=== PATIENT | male | born 1985 | race African-American/Black ===

== ENCOUNTER 2017-09-17 09:16 | Emergency (ER) | payer SELFPAY ==
[2017-09-17 09:17] VITALS: BP 119/74; PULSE 106; RESP 14; TEMP 36.9; O2SAT 99; BMI 25.7
--- NOTE | 2017-09-17 09:34 | ED.DCSUM_ITS ---
- ER Visit Summary Date of Service: 09/17/17 Chief Complaint: [Injury left leg] History of Present Illness: The patient is a 31 M [presents to the emergency department with injury to the left leg that occurred yesterday. Patient states that he was playing basketball when he accidentally took the knee to the anterior thigh. Patient initially did not think much of it and continued to play. Subsequently patient developed discomfort into his left calf as well last night. Patient having pain with ambulation. Patient states pain worse with standing from a seated position and climbing steps. 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 There is no ecchymosis or bruising. There is no hematoma noted. Neurovascular intact distally. Left calf-patient again has tenderness on palpation of the calf and pain with dorsiflexion of the foot. The Achilles tendon is intact and he has a normal Murphy's test. No ecchymosis or bruising noted over the calf and no hematoma noted. Neurovascularly intact.] Test Results: [None indicated] Emergency Department Course and Treatment: [Will be given crutches, Jerry wrap, and naproxen.] Treatment Plan: [Patient will be given work restrictions. Patient advised to follow-up with primary care physician in 5-7 days.] Disposition: [Discharged home in stable condition] Impression: [Contusion left thigh Calf strain] This note was generated with [facility] dictation software. It may contain incorrect words, spelling, and punctuation that were not noted in review of the chart prior to signing ED Disposition - Plan for ED Patient: Chief Complaint: Lower Extremity Injury Referrals: Vimal Nesbitt MD [Primary Care Provider] -
--- NOTE | 2017-09-17 09:35 | ED.DEP ---
ED Disposition - Plan for ED Patient: Chief Complaint: Lower Extremity Injury Instructions: ED Strain Muscle Ext, ED Contusion Lower Ext Prescriptions: Naproxen [Naprosyn] 500 mg PO BID PRN #20 tab Referrals: Vimal Nesbitt MD [Primary Care Provider] - 5-7 Days
== END 2017-09-17 10:12 | disposition home or self-care (01) ==
PROVIDERS: Emergency Provider Emergency Medicine; Family Provider Family Medicine; PCP Family Medicine
DX: S70.12XA Contusion of left thigh, initial encounter (principal); S86.112A Strain of other muscle(s) and tendon(s) of posterior muscle group at lower leg level, left leg, initial encounter; Z72.0 Tobacco use; X58.XXXA Exposure to other specified factors, initial encounter; Y93.67 Activity, basketball; Y92.89 Other specified places as the place of occurrence of the external cause; Y99.8 Other external cause status
CPT/HCPCS: 99283

== ENCOUNTER 2018-06-10 16:44 | Emergency (ER) | payer MEDICAID, SELFPAY ==
[2018-06-10 16:45] VITALS: BP 135/89; PULSE 73; RESP 17; TEMP 36.6; O2SAT 98; BMI 27.4
--- NOTE | 2018-06-10 17:03 | RAD_ITS ---
STUDY: X-RAY - RIGHT KNEE REASON FOR EXAM: Male, 32 years old. Right knee pain. TECHNIQUE: 4 view(s) of the knee. COMPARISON: 05/04/2015. FINDINGS: Normal visualized distal femur. Normal visualized proximal tibia and fibula. Normal proximal tibiofibular articulation. Normal medial femorotibial compartment. Normal lateral femorotibial compartment. Normal patellofemoral articulation. The soft tissue structures are unremarkable. RAD/Knee 4 or More Views IMPRESSION: Normal x-ray examination of the knee. Electronically Signed: Faye Beckwith MD at 17:29 EST Tel , Service support ,
--- NOTE | 2018-06-10 17:04 | ED.VISSUMM ---
- ER Visit Summary Date of Service: 06/10/18 Chief Complaint: Right knee pain History of Present Illness: The patient is a 32 M presenting with right knee pain. He states he has had intermittent right knee pain for the past couple of months. He does not recall a specific injury. He states that he played sports as a child and was told this was likely related to that. He denies fever. He was unable to get into his primary care physician. Denies other complaints. Physical Examination: Vitals are stable. Patient is afebrile. Alert no acute distress. HEENT exam is unremarkable. Neck is supple. Lungs are clear and equal bilaterally. Heart is regular rate and rhythm. Extremities right anterior knee tenderness with active full range of motion. No erythema or warmth. Neurovascularly intact distally Skin is warm and dry. No focal neurologic deficit. Remainder of exam is unremarkable. Emergency Department Course and Treatment: X-ray right knee is normal x-ray examination of the knee. He was given [place] x1 and prescription for Naprosyn. He declined crutches. He is advised to follow-up with PCP or orthopedics. Advised return to ED if worsening complaints. Disposition: Discharge home Impression: Chronic right knee pain This note was generated with [employer] dictation software. It may contain incorrect words, spelling, and punctuation that were not noted in review of the chart prior to signing ED Disposition - Plan for ED Patient: Instructions: ED Knee Pain [facility] Prescriptions: Naproxen [Naprosyn] 500 mg PO BID PRN #20 tablet Referrals: Candido Floyd MD [STAFF PHYSICIAN] - Vimal Nesbitt MD [Primary Care Provider] -
--- NOTE | 2018-06-10 17:39 | ED.DEP ---
ED Disposition - Plan for ED Patient: Instructions: ED Knee Pain [facility] Prescriptions: Naproxen [Naprosyn] 500 mg PO BID PRN #20 tablet Referrals: Vimal Nesbitt MD [Primary Care Provider] - Candido Floyd MD [STAFF PHYSICIAN] -
[2018-06-10] MEDS: HYDROcodone Bitartrate/Apap 5/325 Tablet PO (17:45)
== END 2018-06-10 17:47 | disposition home or self-care (01) ==
LOC: ED 17:20
PROVIDERS: Emergency Provider Emergency Medicine; Family Provider Family Medicine; PCP Family Medicine
DX: M25.561 Pain in right knee (principal); G89.29 Other chronic pain; Z72.0 Tobacco use
CPT/HCPCS: 73564; 99283

== ENCOUNTER 2019-07-06 14:25 | Emergency (ER) | payer SELFPAY ==
[2019-07-06 14:26] VITALS: BP 163/89; PULSE 82; RESP 15; TEMP 36.9; O2SAT 98; BMI 28.5
--- NOTE | 2019-07-06 15:19 | ED.VISSUMM ---
- ER Visit Summary Date of Service: 07/06/19 Chief Complaint: Right hand pain and swelling History of Present Illness: The patient is a 33 M who complains of right hand pain and swelling. Is been ongoing for 2 days. He has swelling on the palm side of his right hand near the thenar eminence. He describes the pain as throbbing. He has tingling in his arm as well. He has a history of a skin graft about 17 years ago. He had a wound at the middle part at the base of his hand which he states opened up. 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 No fevers. Denies any coldness or paresthesias to his fingers. Physical Examination: Vital signs reviewed. Right arm exam reveals a healing wound at the base of his hand on the palm side near this skin graft. There is no drainage or erythema. It is mildly warm to touch. He has a 2+ radial pulse. He has no significant swelling of the right arm. No tenderness of the forearm or elbow. Test Results: None performed Emergency Department Course and Treatment: At this point I will treat the patient with Keflex. He has great pulses. I do not feel that this is an arterial occlusion or DVT. He has no injuries I do not feel any x-rays are needed. I will treat him with Keflex. He will follow-up with his doctor Treatment Plan: [] Disposition: Discharge Impression: Right hand pain This note was generated with [employer] dictation software. It may contain incorrect words, spelling, and punctuation that were not noted in review of the chart prior to signing ED Disposition - Plan for ED Patient: Disposition: Home or Assisted Living Instructions: Cellulitis Prescriptions: Cephalexin [Keflex] 500 mg PO Q8 #21 cap Prescription Printed Referrals: Vimal Nesbitt MD [Primary Care Provider] -
== END 2019-07-06 15:30 | disposition home or self-care (01) ==
LOC: ED 15:27
PROVIDERS: Emergency Provider Emergency Medicine; PCP Family Medicine
DX: M79.641 Pain in right hand (principal)
CPT/HCPCS: 99282

== ENCOUNTER 2020-07-23 17:34 | Emergency (ER) | payer BC, SELFPAY ==
[2020-07-23 17:36] VITALS: BP 151/103; PULSE 95; RESP 14; TEMP 36.6; O2SAT 99; BMI 27.8
[2020-07-23 17:53] VITALS: RESP 16
[2020-07-23] MEDS: HYDROcodone Bitartrate/Apap 5/325 Tablet PO (18:00)
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
[2020-07-23 18:43] VITALS: PULSE 97; RESP 16; O2SAT 98
--- NOTE | 2020-07-23 18:44 | ED.RN ---
REVIEWED D/C INSTRUCTIONS, FOLLOW UP CARE, PRESCRIPTION, AND S/S THAT WOULD WARRANT A RETURN TO THE ED WITH PT. PT VERBALIZED AN UNDERSTANDING AND DENIES FURTHER QUESTIONS FOR THIS RN. PT SKIN WARM/DRY, RESP EVEN AND UNLABORED, PT A&O X 3, NO DISTRESS NOTED.
== END 2020-07-23 18:49 | disposition home or self-care (01) ==
LOC: ED 18:46
PROVIDERS: Emergency Provider Emergency Medicine; PCP Family Medicine
DX: S20.212A Contusion of left front wall of thorax, initial encounter (principal); F17.200 Nicotine dependence, unspecified, uncomplicated; V43.62XA Car passenger injured in collision with other type car in traffic accident, initial encounter; Y93.I9 Activity, other involving external motion; Y92.410 Unspecified street and highway as the place of occurrence of the external cause; Y99.8 Other external cause status
CPT/HCPCS: 71111; 99283

== ENCOUNTER 2020-08-14 16:53 | Emergency (ER) | payer BC, SELFPAY ==
[2020-08-14 16:54] VITALS: BP 146/80; PULSE 127; RESP 15; TEMP 36.6; O2SAT 99; BMI 29.4
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
== END 2020-08-14 17:30 | disposition home or self-care (01) ==
LOC: ED 17:22
PROVIDERS: Emergency Provider Student in an Organized Health Care Education/Training Program; PCP Family Medicine
DX: Z02.89 Encounter for other administrative examinations (principal); F17.200 Nicotine dependence, unspecified, uncomplicated
CPT/HCPCS: 99282

== ENCOUNTER → 2020-11-20 10:59 | Outpatient (CLI) | payer MEDICAID, SELFPAY ==
[2020-11-20 10:17] VITALS: BMI 29.4
[2020-11-20 12:06] LABS: Absolute Lymphocyte Count 2.04 X10^3/uL (0.83-4.51); Absolute Neutrophil Count 4.3 X10^3/uL (2.0-7.7); Basophil# 0.04 X10^3/uL; Basophil% 0.5 % (0-1); Eosinophil# 0.14 X10^3/uL; Eosinophils% 1.9 % (0-5); Hematocrit 46.5 % (40-54); Hemoglobin 14.7 g/dL (13.0-16.5); Lymphocyte # 2.04 X10^3/ul (0.83-4.51); Lymphocyte % 27.6 % (19-41); Mean Corp Hgb Conc 31.6 g/dL (32-36); Mean Corpuscular Hgb 27.9 pg (27.0-32.0); Mean Corpuscular Volume 88.2 fL (80-94); Mean Platelet Vol. 9.5 fl (6.2-12.0); Monocyte# 0.78 X10^3/uL; Monocyte% 10.6 % (0-10); NRBC Flagged by Analyzer 0 % (0-5); Neutrophil # 4.34 X10^3/uL (2.7-7.7); Neutrophil % 58.7 % (47-70); Platelet Count 345 K/mm3 (150-450); RBC Distribution Width CV 13.5 % (11.6-14.6); RBC Distribution Width SD 43.8 fl (35.1-43.9); Red Blood Count 5.27 M/mm3 (4.6-6.2); White Blood Count 7.4 K/mm3 (4.4-11.0)
[2020-11-20 12:38] LABS: ALB/GLOB Ratio 1.1 RATIO (0.9-2.4); AST(SGOT) 26 U/L (15-37); Alanine Aminotransfer ALT/SGPT 47 U/L (16-61); Alkaline Phosphatase 112 U/L (45-117); Anion Gap 3 (5-15); BUN 9 mg/dL (7-18); BUN/Creat Ratio 7.9 RATIO (10-20); Calcium,Total 8.8 mg/dL (8.5-10.1); Chloride 107 mmol/L (98-107); Creatinine, Serum 1.14 mg/dL (0.70-1.30); EST Glomerular Filtration Rate 77 mL/min (>60); Est Glom Filt Rate - Afr Amer 93 mL/min (>60); Globulin 3.8 g/dL (2.2-4.2); Glucose 82 mg/dL (74-106); Potassium 3.9 mmol/L (3.5-5.1); Protein, Total 7.8 g/dL (6.4-8.2); Sodium Level 138 mmol/L (136-145); T4 Free Direct 0.86 ng/dL (0.76-1.46)
== END ==
PROVIDERS: PCP Internal Medicine; Referring Provider Internal Medicine; Visit Provider Internal Medicine
DX: F31.9 Bipolar disorder, unspecified (principal)
CPT/HCPCS: 36415; 80053; 84439; 84443; 85025

== ENCOUNTER → 2020-12-18 11:39 | Outpatient (CLI) | payer MEDICAID, SELFPAY ==
[2020-12-18 11:05] VITALS: BMI 29.4
[2020-12-18 15:14] LABS: Absolute Lymphocyte Count 2.21 X10^3/uL (0.83-4.51); Absolute Neutrophil Count 3.5 X10^3/uL (2.0-7.7); Basophil# 0.05 X10^3/uL; Basophil% 0.8 % (0-1); Eosinophil# 0.15 X10^3/uL; Eosinophils% 2.3 % (0-5); Hematocrit 45.6 % (40-54); Hemoglobin 14.7 g/dL (13.0-16.5); Lymphocyte # 2.21 X10^3/ul (0.83-4.51); Lymphocyte % 34.2 % (19-41); Mean Corp Hgb Conc 32.2 g/dL (32-36); Mean Corpuscular Hgb 28.6 pg (27.0-32.0); Mean Corpuscular Volume 88.7 fL (80-94); Mean Platelet Vol. 9.8 fl (6.2-12.0); Monocyte# 0.56 X10^3/uL; Monocyte% 8.7 % (0-10); NRBC Flagged by Analyzer 0 % (0-5); Neutrophil # 3.47 X10^3/uL (2.7-7.7); Neutrophil % 53.5 % (47-70); Platelet Count 294 K/mm3 (150-450); RBC Distribution Width CV 13.8 % (11.6-14.6); RBC Distribution Width SD 44.7 fl (35.1-43.9); Red Blood Count 5.14 M/mm3 (4.6-6.2); White Blood Count 6.5 K/mm3 (4.4-11.0)
== END ==
PROVIDERS: PCP Internal Medicine; Referring Provider Internal Medicine; Visit Provider Internal Medicine
DX: F31.9 Bipolar disorder, unspecified (principal)
CPT/HCPCS: 36415; 85025

== ENCOUNTER 2021-02-19 06:36 | Emergency (ER) | payer MEDICAID, SELFPAY ==
[2021-02-19 06:37] VITALS: BP 144/71; PULSE 71; RESP 16; TEMP 36.6; O2SAT 100; BMI 29.2
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
== END 2021-02-19 07:15 | disposition home or self-care (01) ==
LOC: ED 07:14
PROVIDERS: Emergency Provider Emergency Medicine; PCP Family Medicine
DX: K05.20 Aggressive periodontitis, unspecified (principal); H60.91 Unspecified otitis externa, right ear; F31.9 Bipolar disorder, unspecified; F17.210 Nicotine dependence, cigarettes, uncomplicated; Z79.899 Other long term (current) drug therapy
CPT/HCPCS: 99282

== ENCOUNTER 2021-09-09 11:39 | Emergency (ER) | payer MEDICAID, SELFPAY ==
[2021-09-09 11:40] VITALS: BP 154/88; PULSE 71; RESP 18; TEMP 36.5; O2SAT 97; BMI 29.2
[2021-09-09] MEDS: Ibuprofen 600 MG Tablet PO (12:55)
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
== END 2021-09-09 13:39 | disposition home or self-care (01) ==
PROVIDERS: Emergency Provider Emergency Medicine; PCP Internal Medicine; Visit Provider Emergency Medicine
DX: M77.10 Lateral epicondylitis, unspecified elbow (principal); F31.9 Bipolar disorder, unspecified; R20.2 Paresthesia of skin; Z79.899 Other long term (current) drug therapy; F17.210 Nicotine dependence, cigarettes, uncomplicated
CPT/HCPCS: 73080; 99283

== ENCOUNTER → 2021-09-17 | Outpatient (CLI) | payer MEDICAID, SELFPAY ==
[2021-09-17 12:08] LABS: Absolute Lymphocyte Count 2.43 X10^3/uL (0.83-4.51); Absolute Neutrophil Count 4.5 X10^3/uL (2.0-7.7); Basophil# 0.04 X10^3/uL; Basophil% 0.5 % (0-1); Eosinophil# 0.09 X10^3/uL; Eosinophils% 1.2 % (0-5); Hematocrit 47.4 % (40-54); Hemoglobin 15.1 g/dL (13.0-16.5); Lymphocyte # 2.43 X10^3/ul (0.83-4.51); Lymphocyte % 31.7 % (19-41); Mean Corp Hgb Conc 31.9 g/dL (32-36); Mean Corpuscular Hgb 28.4 pg (27.0-32.0); Mean Corpuscular Volume 89.1 fL (80-94); Mean Platelet Vol. 9.9 fl (6.2-12.0); Monocyte% 7.8 % (0-10); NRBC Flagged by Analyzer 0 % (0-5); Neutrophil # 4.45 X10^3/uL (2.7-7.7); Neutrophil % 58.1 % (47-70); Platelet Count 295 K/mm3 (150-450); RBC Distribution Width CV 13.6 % (11.6-14.6); RBC Distribution Width SD 44.1 fl (35.1-43.9); Red Blood Count 5.32 M/mm3 (4.6-6.2); White Blood Count 7.7 K/mm3 (4.4-11.0)
[2021-09-17 12:32] LABS: ALB/GLOB Ratio 0.9 RATIO (0.9-2.4); AST(SGOT) 33 U/L (15-37); Alanine Aminotransfer ALT/SGPT 84 U/L (16-61); Albumin, Serum 3.9 g/dL (3.2-5.0); Alkaline Phosphatase 106 U/L (45-117); Anion Gap 9 (5-15); BUN 16 mg/dL (7-18); BUN/Creat Ratio 14.8 RATIO (10-20); Chloride 106 mmol/L (98-107); Creatinine, Serum 1.08 mg/dL (0.70-1.30); EST Glomerular Filtration Rate 81 mL/min (>60); Est Glom Filt Rate - Afr Amer 99 mL/min (>60); Globulin 4.4 g/dL (2.2-4.2); Glucose 84 mg/dL (74-106); Potassium 4.2 mmol/L (3.5-5.1); Protein, Total 8.3 g/dL (6.4-8.2); Sodium Level 141 mmol/L (136-145)
== END | disposition home or self-care (01) ==
LOC: BIMLAB 08:37
PROVIDERS: PCP Internal Medicine; Referring Provider Internal Medicine; Visit Provider Internal Medicine
DX: F31.9 Bipolar disorder, unspecified (principal)
CPT/HCPCS: 36415; 80053; 85025

== ENCOUNTER 2021-10-11 13:30 | Outpatient (RCR) | payer MEDICAID, SELFPAY ==
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
--- NOTE | 2022-01-28 13:11 | HP.PT.NRP ---
ECHO HYATT was seen in my office for initial evaluation on 09/19/21. The following Plan of Care was established for this patient: Initial Frequency: 2-3x /Week Initial Duration: 4-6 Weeks Patient/Client Instruction: Educate patient on: Condition, Plan of Care For the Purpose of:: To improve self management Therapeutic Exercise to Include: Strength training, Flexibilty training, Passive ROM, Active ROM For the Purpose of:: To decrease pain, To increase ROM, To improve muscle performance and motor function Manual Therapy Techniques to Include: Soft tissue mobilization For the Purpose of:: To decrease pain, To increase ROM, To improve muscle performance and motor function Cryotherapy (ice pack, ice massage): Yes Ultrasound (thermal/non thermal): Yes For the Purpose of:: To decrease pain This patient was last seen in our office . Pertinent comments regarding their Physical therapy will appear below: Pt was treated for R elbow pain for 6 PT visits through the date of 10/11/21. Pt has not returned through todays date and is discontinued at this time. At this point I will be discontinuing this patient from physical therapy. I would be happy to see this patient again in the future if found appropriate by the physician. Thank you! Cuco Deleon, PT, ATC Balance/Gait/Functional tests - Balance/Special Test Scores Quick DASH Score: 61.3625
== END 2021-10-11 19:00 | disposition home or self-care (01) ==
LOC: PT 13:30
PROVIDERS: PCP Internal Medicine; Referring Provider Internal Medicine; Visit Provider Internal Medicine
DX: M25.521 Pain in right elbow (principal)
CPT/HCPCS: 97035; 97110; 97140; 97161

== ENCOUNTER 2021-12-04 23:22 | Emergency (ER) | payer MEDICAID, SELFPAY ==
[2021-12-04 23:23] VITALS: BP 132/88; PULSE 87; RESP 16; TEMP 35.8; O2SAT 97; BMI 29.2
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
[2021-12-05 00:07] VITALS: BP 132/84; PULSE 79; RESP 15; O2SAT 98
== END 2021-12-05 00:07 | disposition home or self-care (01) ==
PROVIDERS: Emergency Provider Emergency Medicine; PCP Internal Medicine; Visit Provider Emergency Medicine
DX: B34.9 Viral infection, unspecified (principal); I10 Essential (primary) hypertension; Z87.891 Personal history of nicotine dependence; Z79.899 Other long term (current) drug therapy; Z20.822 Contact with and (suspected) exposure to COVID-19; Z86.16 Personal history of COVID-19
CPT/HCPCS: 87811; 99282

== ENCOUNTER 2021-12-16 22:58 | Emergency (ER) | payer MEDICAID, SELFPAY ==
[2021-12-16 22:58] VITALS: BP 175/102; PULSE 113; RESP 16; TEMP 37; O2SAT 98; BMI 29.2
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
[2021-12-16] MEDS: Diphth,Pertuss(Acell),Tet Vac 0.5 ML Vial IM (23:30)
[2021-12-16 23:31] VITALS: PULSE 74; RESP 15; O2SAT 98
== END 2021-12-16 23:33 | disposition home or self-care (01) ==
LOC: ED 23:13
PROVIDERS: Emergency Provider Student in an Organized Health Care Education/Training Program; PCP Internal Medicine; Visit Provider Student in an Organized Health Care Education/Training Program
DX: S61.012A Laceration without foreign body of left thumb without damage to nail, initial encounter (principal); I10 Essential (primary) hypertension; Z87.891 Personal history of nicotine dependence; W26.8XXA Contact with other sharp object(s), not elsewhere classified, initial encounter; Z23 Encounter for immunization
CPT/HCPCS: 90715; 99282

== ENCOUNTER 2021-12-30 09:52 | Emergency (ER) | payer MEDICAID, SELFPAY ==
[2021-12-30 09:53] VITALS: BP 132/92; PULSE 67; RESP 16; TEMP 36.2; O2SAT 99; BMI 28.3
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
[2021-12-30] MEDS: Dicyclomine 10 MG Capsule 20 MG PO (10:20)
[2021-12-30] MEDS: 0.9% Normal Saline 1,000 ML 1000 ML IV (10:32)
[2021-12-30 10:41] LABS: Absolute Lymphocyte Count 2.23 X10^3/uL (0.83-4.51); Absolute Neutrophil Count 2.9 X10^3/uL (2.0-7.7); Basophil# 0.03 X10^3/uL; Basophil% 0.5 % (0-1); Eosinophil# 0.13 X10^3/uL; Eosinophils% 2.3 % (0-5); Hematocrit 43.5 % (40-54); Hemoglobin 14.5 g/dL (13.0-16.5); Lymphocyte # 2.23 X10^3/ul (0.83-4.51); Lymphocyte % 39.1 % (19-41); Mean Corp Hgb Conc 33.3 g/dL (32-36); Mean Corpuscular Hgb 28.9 pg (27.0-32.0); Mean Corpuscular Volume 86.7 fL (80-94); Mean Platelet Vol. 9.1 fl (6.2-12.0); Monocyte# 0.41 X10^3/uL; Monocyte% 7.2 % (0-10); NRBC Flagged by Analyzer 0 % (0-5); Neutrophil # 2.89 X10^3/uL (2.7-7.7); Neutrophil % 50.7 % (47-70); Platelet Count 272 K/mm3 (150-450); RBC Distribution Width CV 13.1 % (11.6-14.6); RBC Distribution Width SD 41.1 fl (35.1-43.9); Red Blood Count 5.02 M/mm3 (4.6-6.2); White Blood Count 5.7 K/mm3 (4.4-11.0)
[2021-12-30 11:00] LABS: AST(SGOT) 40 U/L (15-37); Alanine Aminotransfer ALT/SGPT 53 U/L (16-61); Albumin, Serum 3.5 g/dL (3.2-5.0); Alkaline Phosphatase 113 U/L (45-117); Anion Gap 4 (5-15); BUN 10 mg/dL (7-18); BUN/Creat Ratio 11.2 RATIO (10-20); Calcium,Total 8.5 mg/dL (8.5-10.1); Chloride 110 mmol/L (98-107); Creatinine, Serum 0.89 mg/dL (0.70-1.30); EST Glomerular Filtration Rate 102 mL/min (>60); Est Glom Filt Rate - Afr Amer 123 mL/min (>60); Estimated Creatinine Clearance 94.23 ml/min; Globulin 4.3 g/dL (2.2-4.2); Glucose 87 mg/dL (74-106); Potassium 4.3 mmol/L (3.5-5.1); Protein, Total 7.8 g/dL (6.4-8.2); Sodium Level 141 mmol/L (136-145)
[2021-12-30 11:17] LABS: Bacteria 0 SEEN /hpf (None Seen); Mucous, Urine 0 SEEN /hpf (<or=2+); Red Blood Cells-Urine 0 SEEN /hpf (0-5); Squamous Epithelial Cells - UA 0 SEEN /hpf (0-5); White Blood Cells 0 SEEN /hpf (0-5)
[2021-12-30 11:21] LABS: Color, Urine Yellow (Yellow); Glucose, Dipstick Normal (Normal); Ketone-Dipstick Negative (Negative); Leukocyte Esterase-Dipstick Negative /ul (Negative); Nitrite-Dipstick Negative (Negative); Occult Blood-Urine Negative /ul (Negative); Protein-Dipstick Negative (Negative); Specific Gravity, Urine 1.015 (1.002-1.030); Urine Bilirubin Dipstick Negative (Negative); Urine Clarity Clear (Clear); Urine Urobilinogen Normal (Normal)
== END 2021-12-30 12:40 | disposition home or self-care (01) ==
PROVIDERS: Emergency Provider Emergency Medicine; PCP Internal Medicine; Visit Provider Emergency Medicine
DX: A08.4 Viral intestinal infection, unspecified (principal); R51.9 Headache, unspecified; I10 Essential (primary) hypertension; R19.7 Diarrhea, unspecified; Z20.822 Contact with and (suspected) exposure to COVID-19; Z87.891 Personal history of nicotine dependence
CPT/HCPCS: 80048; 80076; 81001; 85025; 87811; 96360; 99283; J7030

== ENCOUNTER 2022-06-13 16:11 | Emergency (ER) | payer MEDICAID, SELFPAY ==
[2022-06-13 16:11] VITALS: BP 144/86; PULSE 79; RESP 18; TEMP 36.1; O2SAT 100; BMI 27.8
--- NOTE | 2022-06-13 16:25 | RAD_ITS ---
EXAM: XR LEFT FOOT COMPLETE, 3 OR MORE VIEWS CLINICAL INDICATION: INJURY TECHNIQUE: Frontal, lateral and oblique views of the left foot. This report was created using [employer] report generation technology. COMPARISON: None. FINDINGS: BONES/JOINTS: Unremarkable. No acute fracture. No subluxation. Normal alignment. Preservation of the joint space. No sclerotic or destructive changes observed. SOFT TISSUES: Unremarkable. No soft tissue swelling or gas. No radiopaque foreign body. RAD/Foot min 3 Views IMPRESSION: Negative left foot x-rays. Electronically Signed: Jethro Morales MD at 16:51 EST ,
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
== END 2022-06-13 18:32 | disposition home or self-care (01) ==
LOC: ED 18:23
PROVIDERS: Emergency Provider Emergency Medicine; PCP Internal Medicine; Visit Provider Emergency Medicine
DX: S90.32XA Contusion of left foot, initial encounter (principal); M20.10 Hallux valgus (acquired), unspecified foot; M19.90 Unspecified osteoarthritis, unspecified site; I10 Essential (primary) hypertension; Z87.891 Personal history of nicotine dependence; W20.8XXA Other cause of strike by thrown, projected or falling object, initial encounter
CPT/HCPCS: 73630; 99283

== ENCOUNTER 2023-01-28 13:56 | Emergency (ER) | payer SELFPAY ==
[2023-01-28 13:56] VITALS: BP 123/79; PULSE 89; RESP 18; TEMP 36.3; O2SAT 98
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
--- NOTE | 2023-01-28 14:15 | RAD_ITS ---
STUDY: X-RAY - RIGHT FOOT CLINICAL: Male, 37 years old. Pain following injury. TECHNIQUE: 3 view(s) of the foot. COMPARISON: None. FINDINGS: Normal talus, calcaneus, and tarsal bones. Normal visualized subtalar, talonavicular, calcaneocuboid, tarsal and tarsometatarsal articulations. Normal metatarsi. Normal metatarsophalangeal joint of the great toe. Normal tibial and fibular sesamoid bones. Normal interphalangeal joint of the great toe. Normal phalanges of the great toe. Normal second through fifth metatarsophalangeal joints. Normal interphalangeal joints and phalanges of the lesser toes. The soft tissue structures are unremarkable. RAD/Foot min 3 Views IMPRESSION: Normal x-ray examination of the foot. Electronically Signed: Yomi Gusman MD at 14:29 EDT ,
[2023-01-28 14:32] VITALS: BMI 38.6
== END 2023-01-28 14:41 | disposition home or self-care (01) ==
PROVIDERS: Emergency Provider Emergency Medicine; PCP Internal Medicine; Visit Provider Emergency Medicine
DX: S90.31XA Contusion of right foot, initial encounter (principal); S50.811A Abrasion of right forearm, initial encounter; Z87.891 Personal history of nicotine dependence; I10 Essential (primary) hypertension; F32.A Depression, unspecified; W20.8XXA Other cause of strike by thrown, projected or falling object, initial encounter
CPT/HCPCS: 73630; 99282

== ENCOUNTER 2023-08-20 13:05 | Emergency (ER) | payer SELFPAY ==
[2023-08-20 13:05] VITALS: BP 164/98; BP 172/94; PULSE 102; PULSE 105; RESP 18; TEMP 37.2; O2SAT 98; BMI 28.0
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
[2023-08-20] MEDS: Amox/Clavulanate 875 MG Tablet PO (13:50)
[2023-08-20 13:52] VITALS: BP 131/77; PULSE 84; RESP 18; TEMP 36.8; O2SAT 99
== END 2023-08-20 13:53 | disposition home or self-care (01) ==
LOC: ED 13:42
PROVIDERS: Emergency Provider Emergency Medicine; PCP Internal Medicine; Visit Provider Emergency Medicine
DX: J32.9 Chronic sinusitis, unspecified (principal); F31.9 Bipolar disorder, unspecified; H92.02 Otalgia, left ear; I10 Essential (primary) hypertension; Z11.52 Encounter for screening for COVID-19; Z79.899 Other long term (current) drug therapy; Z87.891 Personal history of nicotine dependence
CPT/HCPCS: 99282

== ENCOUNTER 2023-10-18 18:07 | Emergency (ER) | payer SELFPAY ==
[2023-10-18 18:08] VITALS: BP 136/93; PULSE 87; RESP 16; TEMP 36.7; O2SAT 98; BMI 28.3
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
[2023-10-18] MEDS: AMOXICILLIN 500 MG CAPSULE PO (18:55)
[2023-10-18 18:56] VITALS: BP 141/67; PULSE 81; RESP 16; TEMP 36.7; O2SAT 99
== END 2023-10-18 19:18 | disposition home or self-care (01) ==
LOC: ED 19:17
PROVIDERS: Emergency Provider Emergency Medicine; PCP Internal Medicine; Visit Provider Emergency Medicine
DX: J06.9 Acute upper respiratory infection, unspecified (principal); K08.89 Other specified disorders of teeth and supporting structures; Z87.891 Personal history of nicotine dependence; I10 Essential (primary) hypertension
CPT/HCPCS: 99282

== ENCOUNTER → 2023-11-23 | Outpatient (CLI) | payer MEDICAID, SELFPAY ==
[2023-11-23 15:26] LABS: Absolute Lymphocyte Count 1.67 X10^3/uL (0.83-4.51); Absolute Neutrophil Count 2.7 X10^3/uL (2.0-7.7); Basophil# 0.02 X10^3/uL; Basophil% 0.4 % (0-1); Eosinophil# 0.11 X10^3/uL; Eosinophils% 2.3 % (0-5); Hematocrit 46.3 % (40-54); Lymphocyte # 1.67 X10^3/ul (0.83-4.51); Lymphocyte % 34.2 % (19-41); Mean Corp Hgb Conc 32.4 g/dL (32-36); Mean Corpuscular Hgb 28.4 pg (27.0-32.0); Mean Corpuscular Volume 87.7 fL (80-94); Mean Platelet Vol. 9.8 fl (6.2-12.0); Monocyte# 0.36 X10^3/uL; Monocyte% 7.4 % (0-10); NRBC Flagged by Analyzer 0 % (0-5); Neutrophil # 2.71 X10^3/uL (2.7-7.7); Neutrophil % 55.5 % (47-70); Platelet Count 314 K/mm3 (150-450); RBC Distribution Width CV 13.8 % (11.6-14.6); RBC Distribution Width SD 43.9 fl (35.1-43.9); Red Blood Count 5.28 M/mm3 (4.6-6.2); White Blood Count 4.9 K/mm3 (4.4-11.0)
[2023-11-23 16:30] LABS: ALB/GLOB Ratio 0.9 RATIO (0.9-2.4); AST(SGOT) 22 U/L (15-37); Alanine Aminotransfer ALT/SGPT 54 U/L (16-61); Albumin, Serum 3.8 g/dL (3.2-5.0); Alkaline Phosphatase 117 U/L (45-117); Anion Gap 5 (5-15); BUN 12 mg/dL (7-18); Calcium,Total 9.2 mg/dL (8.5-10.1); Chloride 107 mmol/L (98-107); Cholesterol 199 mg/dL (200); Creatinine, Serum 1.09 mg/dL (0.70-1.30); EST Glomerular Filtration Rate 80 mL/min (>60); Est Glom Filt Rate - Afr Amer 96 mL/min (>60); Globulin 4.3 g/dL (2.2-4.2); Glucose 88 mg/dL (74-106); High Density Lipoprotein 46 mg/dL; Potassium 4.2 mmol/L (3.5-5.1); Protein, Total 8.1 g/dL (6.4-8.2); Sodium Level 139 mmol/L (136-145); Triglycerides 91 mg/dL; Very Low Density Lipoprotein 18 mg/dL (5-40)
== END | disposition home or self-care (01) ==
LOC: BIMLAB 11:51
PROVIDERS: PCP Internal Medicine; Referring Provider Internal Medicine; Visit Provider Internal Medicine
DX: I10 Essential (primary) hypertension (principal)
CPT/HCPCS: 36415; 80053; 80061; 85025

== ENCOUNTER 2023-12-15 01:26 | Emergency (ER) | payer MEDICAID, SELFPAY ==
[2023-12-15 01:27] VITALS: BP 138/97; PULSE 80; RESP 16; TEMP 36.6; O2SAT 97; BMI 29.1
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
[2023-12-15 02:35] LABS: Absolute Neutrophil Count 4.1 X10^3/uL (2.0-7.7); Basophil# 0.07 X10^3/uL; Basophil% 0.9 % (0-1); Eosinophil# 0.29 X10^3/uL; Eosinophils% 3.6 % (0-5); Hematocrit 43.3 % (40-54); Lymphocyte % 35.8 % (19-41); Mean Corp Hgb Conc 32.3 g/dL (32-36); Mean Corpuscular Volume 86.6 fL (80-94); Mean Platelet Vol. 9.2 fl (6.2-12.0); Monocyte# 0.72 X10^3/uL; Monocyte% 8.9 % (0-10); NRBC Flagged by Analyzer 0 % (0-5); Neutrophil # 4.09 X10^3/uL (2.7-7.7); Neutrophil % 50.4 % (47-70); Platelet Count 324 K/mm3 (150-450); RBC Distribution Width CV 13.8 % (11.6-14.6); RBC Distribution Width SD 43.8 fl (35.1-43.9); White Blood Count 8.1 K/mm3 (4.4-11.0)
[2023-12-15 03:13] LABS: Anion Gap 5 (5-15); BUN 17 mg/dL (7-18); BUN/Creat Ratio 14.9 RATIO (10-20); CPK Total, Creatine Kinase 240 U/L (39-308); Calcium,Total 8.8 mg/dL (8.5-10.1); Chloride 108 mmol/L (98-107); Creatinine, Serum 1.14 mg/dL (0.70-1.30); EST Glomerular Filtration Rate 76 mL/min (>60); Est Glom Filt Rate - Afr Amer 91 mL/min (>60); Estimated Creatinine Clearance 80.85 ml/min; Glucose 96 mg/dL (74-106); Potassium 3.7 mmol/L (3.5-5.1); Sodium Level 140 mmol/L (136-145)
[2023-12-15 03:24] VITALS: BP 138/81; PULSE 79; RESP 18; TEMP 36.7; O2SAT 100
== END 2023-12-15 03:26 | disposition home or self-care (01) ==
PROVIDERS: Emergency Provider Emergency Medicine; PCP Internal Medicine; Visit Provider Emergency Medicine
DX: M62.838 Other muscle spasm (principal); X58.XXXA Exposure to other specified factors, initial encounter; I10 Essential (primary) hypertension; Z79.899 Other long term (current) drug therapy; Z87.891 Personal history of nicotine dependence
CPT/HCPCS: 80048; 82550; 85025; 99282; A4216

== ENCOUNTER → 2024-03-16 | Outpatient (CLI) | payer MEDICAID, SELFPAY | END | disposition home or self-care (01) | LOC: PSN 09:56 | PROVIDERS: PCP Internal Medicine; Referring Provider Orthopaedic Surgery Sports Medicine; Visit Provider Orthopaedic Surgery Sports Medicine | DX: M77.01 Medial epicondylitis, right elbow (principal) | CPT/HCPCS: 95886; 95910 ==

== ENCOUNTER 2024-04-05 08:30 | Outpatient (RCR) | payer MEDICAID, SELFPAY ==
--- NOTE | 2024-02-18 15:26 | HP.OTEVAL_ITS ---
Patient's Visit Information Visit Information Visit Information: ECHO HYATT is a 38 year old M, referred to Occupational Therapy by Dr. Ricardo Moran MD, with a diagnosis of medial epicondylitis. Date of Evaluation: 02/18/24 Occupational Therapist: Ifeoma Fletcher Subjective Subjective: This 38 year old male referred to OT services with dx of medial epicondylitis. Pt reports having these issue since accident in 2002 requiring surgical intervention and skin grafting. pt did have therapy in 2021 for medial epicondylitis and reports no improvement in symptoms pt has also done prednisone packs as well as injection in Mar and reports no improvement from this. 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 pt is R hand dominant. Doctor did order nerve conduction study schedule for first week of Mar. Pt has a hard time playing with daughter, working and completing IAD[employer] tasks indicating need for OT eval at this time. 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: R 30# stress position R 20# L 80# stress position 90# Lateral Pinch: R 3# R 10# Tripod Pinch: R 3# L 8# Edema Elbow: R and L 17.5 Sensation Sensation Comments: does report numbness and tingling R elbow on occasion not constant -- get nerve conduction study beginning of Mar 2024 Quick DASH-Disab of Arm,Shoulder& Hand Quick DASH Score: 65.9075 Goals Goal:ROM equal to unaffected hand: Yes Comment: in stress test position Goal:Escort Service Attendant/Pinch strength at least 75% of unaffected hand: Yes Comment: in stress test position Goal:No pain with affected hand use: Yes Goal:Full use of affected hand in daily activities including work: Yes Other Goal: pt will improve quick dash score by 10 points or more (65.9) in o rder to improve functional use of RUE pt will demonstrate 100% accuracy in cross friction massage to R medial epi region by third visit pt will demonstrate 100% accuracy in proper joint protection and positioning during the completion of daily functional tasks to decrease pain in RUE Rehabilitation General Assessment: This 38 year old male presents with dx of medial epicondylitis which per his report he has been dealing with since 2002. Pt is limited in ROM within stress test position of arm extended forearm supinated and wrist extended. pt also demonstrates decreased strength and increased pain within this position. pt has periodic numbness and tingling of R elbow not constant. pt is limited in his ability to perform daily tasks, work related duties as well as playing sport with child. pt requiring OT services 1-2x a week for 4-6 weeks. Rehabilitation Potential: Good Anticipated Interventions Anticipated Interventions: A/AAROM/PROM, Strengthening, Edema Control, Triggerpoint Release, Modalities, Joint Protection/Energy Conservation, Education re Diagnosis and Home Program Visit Plan Frequency: 1-2x /Week Duration: 4-6 Weeks General Plan: cross friction massage modalities stretching guidelines TEXT: Thank you for the opportunity to evaluate your patient. For Medicare and Medicare HMO plans, please review the plan of care and approve it. It will need to be FAXED BACK to us at [phone] for Medicare purposes. Please let me know if there are questions or concerns regarding this plan of care. Physician Signature: Date:
--- NOTE | 2024-03-29 11:16 | HP.OTREVAL ---
Re-Evaluation Intro: Dr. Ricardo Moran MD, It has been my pleasure to treat ECHO HYATT over the last 10 visits for medial epicondylitis. Please see the progress note below for an update on the occupational therapy plan of care! Subjective Subjective: arrives cancelled last appointment due to swelling and pain. 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 pt cancelled last appointment due to swelling and pain. pt frustrated because will do better some days then back to being swollen and painful pt has done US followed by softy tissue mobility stretching and progression to gentle eccentric exercise --- ability to perform exercise depends on pt pain and swelling. Plan Plan Frequency: 1-2x /Week Duration: 4-6 Weeks Goals Goals Patient Goals: Regain Strength, Decrease Pain, Return to Work, Decrease Swelling/Stiffness, Use Hand/Wrist/Arm Normally Again, Decrease Tingling/Numbness, Increase ROM, Resume Former Household Responsibilities (Cooking,Cleaning,Yard, etc.) and Resume Hobbies Goal:ROM equal to unaffected hand: Yes Goal:Medical Customer Service Representative/Pinch strength at least 75% of unaffected hand: Yes Goal:No pain with affected hand use: Yes Goal:Full use of affected hand in daily activities including work: Yes Other Goal: pt will improve quick dash score by 10 points or more (65.9) in order to improve functional use of RUE pt will demonstrate 100% accuracy in cross friction massage to R medial epi region by third visit GOAL MET pt will demonstrate 100% accuracy in proper joint protection and positioning during the completion of daily functional tasks to decrease pain in RUE GOAL MET Anticipated Interventions Anticipated Interventions Anticipated Interventions: A/AAROM/PROM, Strengthening, Edema Control, Triggerpoint Release, Modalities, Joint Protection/Energy Conservation, Education re Diagnosis and Home Program Re-Evaluation Ending Re-evaluation ending: Please do not hesitate to contact me at [phone] by phone or if you have questions or concerns regarding this new plan of care! Sincerely, Ifeoma Fletcher
--- NOTE | 2024-04-05 11:17 | HP.OTDCSUM_ITS ---
Discharge Summary D/C Summary: It has been my pleasure to treat ECHO HYATT under orders from Dr. Ricardo Moran MD, for the diagnosis of medial epicondylitis for a total of 12 visit(s). Please see the following information for a summary of their discharge status. 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 in stress position 15# LUE corporate job titles strength in stress position 70# Goals Patient Goals: Regain Strength, Decrease Pain, Return to Work, Decrease Swelling/Stiffness, Use Hand/Wrist/Arm Normally Again, Decrease Tingling /Numbness, Increase ROM, Resume Former Household Responsibilities (Cooking,Cleaning,Yard, etc.) and Resume Hobbies Goal:ROM equal to unaffected hand: Yes Goal Progress: not met Goal:Protective Signal Operator/Pinch strength at least 75% of unaffected hand: Yes Goal Progress: not met Goal:No pain with affected hand use: Yes Goal Progress: not met Goal:Full use of affected hand in daily activities including work: Yes Goal Progress: not met Other Goal: pt will improve quick dash score by 10 points or more (65.9) in order to improve functional use of RUE now 45.45 GOAL MET pt will demonstrate 100% accuracy in cross friction massage to R medial epi region by third visit GOAL MET pt will demonstrate 100% accuracy in proper joint protection and positioning during the completion of daily functional tasks to decrease pain in RUE GOAL MET D/C Information Discharge Comments: This 38 year old male seen for OT services due to R elbow pain medial epicondylitis. Pt seen for pain management, ROM and progression into strengthening. Pt demonstrates inconsistent pain throughout POC in R UE. pt is able to tolerate and complete stretches however once attempts made to slowly incorporate strengthening pt with increased pain and feeling of being swollen. Pt seen for 12 visits at this time discharge from OT with recommendation to follow up with Dr due to inconsistency in progress due to pain of RUE. d/c sentence: If there are questions or concerns regarding this patient's occupational therapy, please fell free to call me at [phone]. Thank you for the referral of this patient. Sincerely, Ifeoma Fletcher
--- NOTE | 2024-04-05 11:18 | HP.OT.NRP ---
Patient Information Patient Information: ECHO HYATT was seen in my office for initial evaluation on 02/18/24. The following Plan of Care was established for this patient: POC Established Initial Frequency: 1-2x /Week Initial Duration: 4-6 Weeks Anticipated Interventions Anticipated Interventions: A/AAROM/PROM, Strengthening, Edema Control, Triggerpoint Release, Modalities, Joint Protection/Energy Conservation, Education re Diagnosis and Home Program Last Seen Last Seen: This patient was last seen in our office 04/05/24. Pertinent comments regarding their Occupational therapy will appear below: This 38 year old male seen for OT services for R elbow pain medial epicondylitis. pt seen in POC for decreased pain improved ROM and progression into strengthening return to functional use. Able to progress with US and stretches however inconsistency in pain when attempts made to progress to gentle eccentric exercises. pt is discharge at this time with recommendation to return to Dr office for follow up due to inconsistencies and decreased ability to progress in POC due to pain. At this point I will be discontinuing this patient from occupational therapy. I would be happy to see this patient again in the future if found appropriate by the physician. Thank you! Ifeoma Fletcher
== END 2024-04-05 19:00 | disposition home or self-care (01) ==
LOC: OT 08:30
PROVIDERS: PCP Internal Medicine; Visit Provider Orthopaedic Surgery Sports Medicine
DX: M77.01 Medial epicondylitis, right elbow (principal)
CPT/HCPCS: 97035; 97140; 97165; 97530

== ENCOUNTER → 2024-05-24 | Outpatient (CLI) | payer MEDICAID, SELFPAY ==
--- NOTE | 2024-05-24 06:39 | MRI_ITS ---
STUDY: MRI RIGHT ELBOW REASON FOR EXAM: Male, 38 years old. Pain medial side elbow. TECHNIQUE: Standardized fat and water weighted pulse sequences were obtained in all 3 orthogonal planes. COMPARISON: Right elbow radiographs dated 12/22/2023. FINDINGS: Normal radio-capitellum articulation. Normal radial collateral ligamentous complex. Normal common extensor tendon. Normal ulnotrochlear articulation. Normal ulnar collateral ligamentous complex. Normal common flexor tendon. The cubital tunnel is normal, with a normal ulnar nerve. Normal biceps tendon and distal insertion. Normal lacertus fibrosis. Normal brachialis musculotendinous insertion. Normal triceps tendon and teno-osseous insertion. Normal olecranon process. The visualized distal humerus, proximal radius, and ulna are normal. There is mild edema in the proximal origin of the flexor digitorum superficialis muscle (coronal STIR series 6 images 17-18; axial T2 series 4 image 12). The remainder of the visualized muscles of the distal arm and proximal forearm are normal. The soft tissue structures are otherwise unremarkable. MRI/Upper Ext Joint Only(Routine) IMPRESSION: Mild edema in the proximal origin of the flexor digitorum superficialis muscle. No acute osseous, ligamentous or tendinous injury. Electronically Signed: Vamshi Grove MD at 8:16 EST ,
== END | disposition home or self-care (01) ==
LOC: MRI 06:27
PROVIDERS: PCP Internal Medicine; Referring Provider Orthopaedic Surgery Sports Medicine; Visit Provider Orthopaedic Surgery Sports Medicine
DX: M77.01 Medial epicondylitis, right elbow (principal)

== ENCOUNTER 2024-07-22 05:58 | Day surgery (SDC) | payer MEDICAID, SELFPAY ==
[2024-07-22] VITALS (10 sets, daily range): BP systolic 115–138; BP diastolic 70–103; PULSE 73–92; RESP 14–16; TEMP 36.4–36.8; O2SAT 93–100; BMI 29.2
[2024-07-22] MEDS: 0.9% Normal Saline (1000mL) 1,000 ML 15 ML IV (06:15)
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
[2024-07-22] MEDS: Cefazolin 2 GM in Syringe IV (07:30)
[2024-07-22] MEDS: Bupivacaine 0.25% 30 ML Vial (08:00)
--- NOTE | 2024-07-22 08:11 | OP.PCM_ITS ---
Problems Associated Problem List Diagnoses (1) Medial epicondylitis, right elbow: Procedures Musculoskeletal 20xxx-29xxx: Other Procedure See Report Operative Report (Standard) Operative Information Date of Procedure: 07/22/24 Pre-Operative Diagnosis: Right elbow medial epicondylitis Post-Operative Diagnosis: Same Surgery/Procedure Performed: Right elbow, neck flexor origin debridement and repair doll wig maker: Yes Gastroenterologist: caryn Tasks completed by early childhood teacher assistant: Retracting Additional assistant plant control operator?: No Type of Anesthesia: General and Local RN Documented Start/Stop Times: Operation Date: 07/22/24 07:30 Case Time Into Pre-Op 07/22/24 06:10 Out of Pre-Op 07/22/24 07:26 Anesthesia Start 07/22/24 07:30 Into Room 07/22/24 07:30 Procedure Start 07/22/24 07:53 Procedure End 07/22/24 08:08 Procedure Start Time: 07:53 Procedure Stop Time: 08:08 Select all DRAINS/GRAFTS/IMPLANTS that apply: Implanted device Implanted device details: arthrex 1.8mm all suture fiber selma anchor Estimated Blood Loss: 10 Specimen collected: No Description of surgery: Patient brought to the operating room theater. Placed supine on the table. General anesthesia induced. 2 g IV Ancef administered prior to the start of the case. Bed turned 90 degrees. All bony prominences padded. SCDs on the legs. Tourniquet to the right upper extremity appropriately padded. Upper extremity prepped and draped in the usual sterile fashion allowing over 3 minutes drying time prior to draping. Preoperative timeout performed to confirm the site patient and the surgery. Began by elevating the limb inflating the tourniquet to 250 mmHg. Made a small incision over the proximal medial epicondyle. Carried the dissection down through skin and subcutaneous tissue achieved meticulous hemostasis. Identified the common flexor origin. Sharply released this off the medial epicondyles. Gently debrided any diseased appearing tissue. Used a rongeur to freshen up and create a bleeding bed of healing at the medial epicondyle. Made a T-shaped s plit in the common flexor origin. I then inserted a Arthrex 1.8 mm fiber tack all suture anchor at the medial epicondyle. Set the anchor. Used the repair stitch and running fashion to repair the released and split tissue back down to the origin. I then converted the suture through the mechanism and cinched this tight. Suture cut short. Repair was stable solid taken through range of motion. Tourniquet let down thoroughly irrigated using normal saline. Meticulous hemostasis followed by closure of the subcutaneous tissue with 2-0 Vicryl suture and skin with 3-0 Monocryl. 10 cc of quarter percent bupivacaine was instilled in around the soft tissues. Wound cleaned with wet and dry dressing followed by application of Steri-Strips Adaptic 4 x 4 gauze and Jerry bandage with a sling for the upper extremity. Patient woken up from the general anesthetic transferred off the operating table taken to postanesthetic care unit in stable condition. All sponge needle instrument counts were correct no complications plan to the patient discharged home according to day surgery criteria follow-up in the office within 2 weeks. CPT 60592? Surgical Findings: as above Complications Complications: No Admit VTE Documentation VTE Present on Admission: No VTE Mechan Device Prophylaxis: SCD's VTE Pharm Prophylaxis ordered?: No Reason prophylaxis not ordered: Treatment Not Indicated
--- NOTE | 2024-07-22 08:17 | EX.PCM.DISCH ---
Discharge Instructions Diet Discharge Diet: No restrictions Activity Ice area for (Minutes): 10 Lifting Restrictions: no lifting, rest the elbow in the sling, no repetitive wrist or elbow ROM Additional Activity Instructions:: ok for finger ROM Dressing / Incision Call your doctor if your incision/area has: Continuous Slow Oozing, Sudden Increased Bleeding, Increased Pain/ Swelling, Increased Redness, Foul Smelling Discharge and Swelling at the incision site Call your doctor if you observe: Fever of 101 or Higher, Coldness, Increased Pain and Numbness or Tingling Change Dressing in: leave in place till F/U Cleanse incision/area with: Do not get Incision Wet Follow Up Care Please Follow Up With: Ricardo Moran MD When: within 2 weeks Test Results: Test results from this visit will be discussed in further detail at your follow-up appointment, if applicable. Discharge Plan Admission Attending Provider: Ricardo Moran Primary Care Provider: Francy Boss Instructions Print Language: Tamazight Discharge Orders/Prescriptions Prescriptions: New oxycodone-acetaminophen [Endocet] 5-325 mg tablet 1 tab PO Q6H MDD 4 PRN (Reason: pain) 3 Days Qty: 14 0RF No Action amlodipine 5 mg tablet 5 mg PO DAILY Qty: 90 3RF (DME) CARMENCITA Elbow Brace Misc See Rx Instructions .Route Qty: 1 0RF Rx Instructions: As directed quetiapine 50 mg tablet 50 mg PO DAILY Referrals / Follow Up: Francy Boss MD [Primary Care Provider] - Ricardo Moran MD [Med Staff - Active Staff] - Disposition Disposition (needs filled in before D/C Order can be placed): Home, Self Care
--- NOTE | 2024-07-22 08:25 | PCM.POST.ANE ---
Anesthesia: Postop Eval I Current Vital Signs Temperature: 97.6 F Pulse Rate: 86 Blood Pressure: 119/74 Respiratory Rate: 16 Pulse Ox: 93 Assessment Airway patent: Yes Spontaneous unlabored respirations: Yes nausea: No Vomiting: No Anesthesia Complication: No Fluid Hydration Crystalloid volume administer (ml): 700 Total IV fluid infused: 700 Progress Note Anesthesia document: Postop Eval 1 completed: Yes
--- NOTE | 2024-07-22 09:30 | POSTOPAN2_ITS ---
Anesthesia Postop Eval I Sum Postop Eval Completion status Anesthesia document: Postop Eval 1 completed: Yes Anesthesia Postop Eval I Summary Anesthesia Postop Eval I Summary: Anesthesia Postop Eval I: Assessment Summary Airway patent Yes 07/22/24 08:25 CARPET FLOOR LAYER APPRENTICE.TNES Spontaneous unlabored Yes 07/22/24 08:25 CARPET FLOOR LAYER APPRENTICE.TNES respirations Mental status nausea No 07/22/24 08:25 CARPET FLOOR LAYER APPRENTICE.TNES Vomiting No 07/22/24 08:25 CARPET FLOOR LAYER APPRENTICE.TNES Anesthesia Postop Eval I: Fluid Summary Crystalloid volume administer 700 07/22/24 08:25 CARPET FLOOR LAYER APPRENTICE.TNES (ml) Colloids volume administered ( ml) Blood Product volume administered (ml) Total IV fluid infused 700 07/22/24 08:25 CARPET FLOOR LAYER APPRENTICE.TNES Anesthesia Postop Eval I: Summary Notes Anesthesia Complication No 07/22/24 08:25 CARPET FLOOR LAYER APPRENTICE.TNES Anesthesia Complication Comment: Post-operative progress note Anesthesia: Postop Eval II Evaluation Mental status: Awake Pain Level: 4 nausea: No Vomiting: No
--- NOTE | 2024-07-22 09:30 | PCM.POSTANE2 ---
Anesthesia Postop Eval I Sum Postop Eval Completion status Anesthesia document: Postop Eval 1 completed: Yes Anesthesia Postop Eval I Summary Anesthesia Postop Eval I Summary: Anesthesia Postop Eval I: Assessment Summary Airway patent Yes 07/22/24 08:25 PRE SALES SYSTEMS ENGINEER.TNES Spontaneous unlabored Yes 07/22/24 08:25 PRE SALES SYSTEMS ENGINEER.TNES respirations Mental status nausea No 07/22/24 08:25 PRE SALES SYSTEMS ENGINEER.TNES Vomiting No 07/22/24 08:25 PRE SALES SYSTEMS ENGINEER.TNES Anesthesia Postop Eval I: Fluid Summary Crystalloid volume administer 700 07/22/24 08:25 PRE SALES SYSTEMS ENGINEER.TNES (ml) Colloids volume administered ( ml) Blood Product volume administered (ml) Total IV fluid infused 700 07/22/24 08:25 PRE SALES SYSTEMS ENGINEER.TNES Anesthesia Postop Eval I: Summary Notes Anesthesia Complication No 07/22/24 08:25 PRE SALES SYSTEMS ENGINEER.TNES Anesthesia Complication Comment: Post-operative progress note Anesthesia: Postop Eval II Evaluation Mental status: Awake Pain Level: 4 nausea: No Vomiting: No
== END 2024-07-22 10:54 | disposition home or self-care (01) ==
LOC: SDC 05:59 → AC 06:00
PROVIDERS: PCP Internal Medicine; Referring Provider Internal Medicine; Visit Provider Orthopaedic Surgery Sports Medicine
PROC: (CPT 24359; principal; 2024-07-22 07:15)
DX: M77.01 Medial epicondylitis, right elbow (principal); F31.9 Bipolar disorder, unspecified; I10 Essential (primary) hypertension; Z79.899 Other long term (current) drug therapy; Z87.891 Personal history of nicotine dependence
CPT/HCPCS: 24359; 01712; C1713; J2405

== ENCOUNTER 2024-09-06 09:00 | Outpatient (RCR) | payer MEDICAID, SELFPAY ==
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
== END 2024-09-06 19:00 | disposition home or self-care (01) ==
LOC: PT 09:00
PROVIDERS: PCP Internal Medicine; Referring Provider Orthopaedic Surgery Sports Medicine; Visit Provider Orthopaedic Surgery Sports Medicine
DX: M77.01 Medial epicondylitis, right elbow (principal)
CPT/HCPCS: 97110; 97140; 97161

== ENCOUNTER 2024-11-29 01:39 | Emergency (ER) | payer MEDICAID, SELFPAY ==
[2024-11-29 01:40] VITALS: BP 125/100; PULSE 70; RESP 16; TEMP 36.6; O2SAT 98; BMI 30.3
--- OUTSIDE RECORDS SUMMARY | 2024-11-29 02:10 | XMS RPT_ITS | CCD ---
Author Organization [facility] Care Team Providers Care Cleaning Porter Name Role Phone KAYLA IGLESIAS Unavailable Unavailable PHYSICIAN, NONE Unavailable Unavailable Sherif Woodruff MD Primary Care Provider Dr. Francy Boss Primary Care Provider [phone] Dr. Francy Boss Attending Provider [phone] Dr. Francy Boss Referring Provider [phone] Unavailable Primary Care Provider Unavailabl e Unavailable Primary Care Provider Unavailabl e Unavailable Primary Care Provider Unavailabl e Dr. Francy Boss Primary Care Provider 1(33 [phone]) Dr. Francy Boss Referring Provider [phone] KAYLIE Prieto Attending Provider Dr. Francy Boss Attending Provider [phone] Francy Boss MD Primary Care Provider 1([phone]) Dr. Francy Boss Primary Care Provider 1(33 0) Dr. Francy Boss Referring Provider [phone] KAYLIE Prieto Attending Provider Unavailable Primary Care Provider UnavailDr. Francy Magana MD Primary Care Provider Ricardo Moran MD Attending Provider [phone] Dr. Francy Boss MD Referring Provider 1(33 0) Dr. Francy Boss MD Attending Provider Ricardo Moran MD Referring Provider [phone] Dean VARGAS, Ricardo Other Provider [phone] Gera VARGAS, Dr. Sen Primary Care Provider Gera VARGAS, Dr. Sen Referring Provider 1([phone]) Dean VARGAS, Ricardo Attending Provider [phone] Gera VARGAS, Dr. Sen Attending Provider 1([phone]) Dean VARGAS, Ricardo Referring Provider [phone] Gera VARGAS, Dr. Sen Primary Care Provider Gera VARGAS, Dr. Sen Referring Provider 1(33 [phone]) Dean VARGAS, Ricardo Attending Provider [phone] Gera VARGAS, Francy B Primary Care Provider [phone]) Oleghe, Efewongbe Primary Care Unavailable Oleghe, Efewongbe Referring Unavailable Ricardo Moran Attending Unavailable Ricardo Moran Attending Unavailable Oleghe, Efewongbe Referring Unavailable Oleghe, Efewongbe Primary Care Unavailable Oleghe, Efewongbe Attending Unavailable Oleghe, Efewongbe Primary Care Unavailable Oleghe, Efewongbe Referring Unavailable Ricardo Moran Attending Unavailable Oleghe, Efewongbe Referring Unavailable Oleghe, Efewongbe Primary Care Unavailable Ricardo Moran Attending Unavailable Ricardo Moran Referring Unavailable Oleghe, Efewongbe Primary Care Unavailable Ricardo Moran Attending Unavailable Ricardo Moran Referring Unavailable Oleghe, Efewongbe Primary Care Unavailable Ricardo Moran Attending Unavailable Oleghe, Efewongbe Primary Care Unavailable Oleghe, Efewongbe Primary Care Unavailable Robert Patel Attending Unavailable Ricardo Moran Attending Unavailable Oleghe, Efewongbe Primary Care Unavailable Oleghe, Efewongbe Referring Unavailable Oleghe, Efewongbe Attending Unavailable Oleghe, Efewongbe Referring Unavailable Oleghe, Efewongbe Primary Care Unavailable Ricardo Moran Referring Unavailable Oleghe, Efewongbe Primary Care Unavailable Ricardo Moran Attending Unavailable Ricardo Moran Attending Unavailable Oleghe, Efewongbe Referring Unavailable Oleghe, Efewongbe Primary Care Unavailable Oleghe, Efewongbe Referring Unavailable Oleghe, Efewongbe Attending Unavailable Oleghe, Efewongbe Primary Care Unavailable Ricardo Moran Attending Unavailable Oleghe, Efewongbe Referring Unavailable Oleghe, Efewongbe Primary Care Unavailable Ricardo Moran Consulting Unavailable Ricardo Moran Attending Unavailable Oleghe, Efewongbe Referring Unavailable Oleghe, Efewongbe Primary Care Unavailable Ricardo Moran Consulting Unavailable Ricardo Moran Referring Unavailable Jose Zuñiga Attending Unavailable Oleghe, Efewongbe Primary Care Unavailable Oleghe, Efewongbe Referring Unavailable Janae Lopez Attending Unavailable Oleghe, Efewongbe Primary Care Unavailable Ricardo Moran Attending Unavailable Oleghe, Efewongbe Referring Unavailable Oleghe, Efewongbe Primary Care Unavailable Oleghe, Efewongbe Referring Unavailable Oleghe, Efewongbe Primary Care Unavailable Ricardo Moran Attending Unavailable Ricardo Moran Attending Unavailable Oleghe, Efewongbe Primary Care Unavailable Oleghe, Efewongbe Referring Unavailable Oleghe, Efewongbe Attending Unavailable Oleghe, Efewongbe Referring Unavailable Oleghe, Efewongbe Primary Care Unavailable Ricardo Moran Attending Unavailable Oleghe, Efewongbe Referring Unavailable Oleghe, Efewongbe Primary Care Unavailable Oleghe, Efewongbe Primary Care Unavailable Alfonso Law Attending Unavailable Ricardo Moran Attending Unavailable Ricardo Moran Referring Unavailable Oleghe, Efewongbe Primary Care Unavailable VARINDER POWELL Attending Unavailable OLEGHE, EFEWONGBE B Primary Care Unavailable Medications Current Medications Medication Drug Class(es) Dates Sig (Normalized) Sig (Original) amLODIPine 5 mg oral tablet (20 sources) Dihydropyridine Calcium Channel Cirilo Start: 11-20-2021 take 1 tablet by mouth once daily amLODIPine (NORVASC) 5 mg tablet Take 5 mg by mouth once daily. 11/20/2021 Active Comment on above: Take 5 mg by mouth o nce daily. Arm Brace ([facility] [facility] [place] ([place] sources[place] Start: 12-16-2023 Arm Brace ([facility]) [facility] [place] Active 0 .Route 1 0 December 16, 2023 12:00am Right elbow pain Pain in right elbow As directed Start: 12-16-2023 Arm Brace ([employer]ace) misc Active 0 .Route 1 December 16, 2023 12:00am As directed baclofen 10 mg oral tablet (2 sources) gamma-Aminobutyric Acid-ergic Agonist Start: 03-19-2021 take 10 mg by mouth twice daily Baclofen Active 10 MG PO TWICE A DAY 90 March 19, 2021 12:28pm cyclobenzaprine hydrochloride 10 mg oral tablet (20 sources) Muscle Relaxant Start: 09-04-2021 take 1 tablet by mouth every eight hours as needed cyclobenzaprine (FLEXERIL) 10 mg tablet Take 1 tablet by mouth three times daily as needed for muscle spasm. 15 tablet 09/04/2021 Active Start: 08-30-2020 End: 08-26-2021 take 1 tablet by mouth twice daily as needed for muscle spasms cyclobenzaprine (FLEXERIL) 10 mg tablet Indications: muscle spasm Take 1 tablet by mouth twice daily as needed for Muscle Spasm. 30 tablet 0 08/30/2020 08/26/2021 Discontinued (Course of therapy completed) Start: 07-25-2020 End: 08-24-2020 take 1 tablet by mouth twice daily as needed for muscle spasms cyclobenzaprine (FLEXERIL) 10 mg tablet Indications: Acute left-sided low back pain without sciatica Take 1 tablet by mouth twice daily as needed for Muscle Spasm. 30 tablet 07/25/2020 08/24/2020 Comment on above: Take 1 tablet by vicky th twice daily as needed for Muscle Spasm. Take 1 tablet by vicky th three times daily as needed for muscle spasm. doxycycline hyclate 100 mg oral tablet (1 source) Tetracycline-class Drug Start: 08-14-19 End: 08-21-19 take 1 tablet by mouth twice daily doxycycline (VIBRA-TABS) 100 mg tablet Indications: Acute recurrent pansinusitis Take 1 tablet by mouth two times a day for 7 days. 14 tablet 0 08/14/2023 08/21/2023 Active Comment on above: Take 1 tablet by vicky th two times a day for 7 days. fluticasone propionate 0.05 mg/actuat metered dose nasal spray (20 sources) Corticosteroid Start: 08-27-19 End: 12-17-19 23 take 2 spray(s) by mouth once daily fluticasone (FLONASE) 50 mcg/actuation nasal spray Use 2 Sprays in each nostril once daily. Rinse mouth after use. 9.9 mL 12/16/2022 Active Comment on above: Use 2 Sprays in each nostril once daily. Rinse mouth after use. ibuprofen 600 mg oral tablet (20 sources) Nonsteroidal Anti-inflammatory Drug Start: 09-10-19 take 600 mg by mouth every six hours Ibuprofen Active 600 MG PO EVERY 6 HOURS September 09, 2021 1:07pm Comment on above: Take 600 mg by mouth every 6 hours as needed. meloxicam 7.5 mg oral tablet (18 sources) Nonsteroidal Anti-inflammatory Drug Start: 08-02-19 25 meloxicam (MOBIC) 7.5 mg tablet 11/23/2024 Active Start: 12-16-2023 End: 04-06-2024 take 1 tablet by mouth once daily as needed for pain Meloxicam 15 mg tablet Discontinued 15 mg PO DAILY as needed for pain 60 0 December 16, 2023 12:00am April 06, 2024 2:43pm Start: 03-19-2021 End: 11-20-2021 take 1 tablet by mouth once daily as needed for pain Meloxicam 15 mg tablet Discontinued 15 mg PO DAILY as needed for back pain 90 0 March 19, 2021 1:00am November 20, 2021 10:54am Take with food. Do not take with Naproxen Start: 07-25-2020 End: 08-24-2020 take 1 tablet by mouth once daily at mealtime meloxicam (MOBIC) 15 mg tablet Indications: Acute left-sided low back pain without sciatica Take 1 tablet by mouth once daily. With food. 30 tablet 07/25/2020 08/24/2020 ofloxacin 3 mg/ml otic solution (14 sources) Quinolone Antimicrobial Start: 05-28-2022 ofloxacin (FLOXIN) 0.3 % otic solution Indications: Acute otitis externa of left ear, unspecified type Use 10 Drops in the left ear once daily. 5 mL 05/28/2022 Active Comment on above: Use 10 Drops in the left ear once daily. penicillin v potassium 500 mg oral tablet (1 source) Start: 02-25-2022 End: 03-02-2022 take 1 tablet by mouth four times daily penicillin V potassium (V-CILLIN, VEETIDS) 500 mg tablet Take 1 tablet by mouth four times daily for 5 days. 20 tablet 0 02/25/2022 03/02/2022 Active Comment on above: Take 1 tablet by vicky th four times daily for 5 days. QUEtiapine 50 mg oral tablet (20 sources) Atypical Antipsychotic Start: 07-08-2024 take 1 tablet by mouth once daily Quetiapine 50 mg tablet Active 50 mg PO DAILY July 08, 2024 1:00am Start: 11-23-2023 End: 07-08-2024 take 1 tablet by mouth twice daily Quetiapine 50 mg tablet Discontinued 50 mg PO TWICE A DAY 60 November 23, 2023 11:37am July 08, 2024 9:33am Start: 12-18-2020 End: 11-23-2023 take 1 tablet by mouth twice daily Quetiapine (Seroquel) 25 mg tablet Discontinued 25 mg PO TWICE A DAY 60 3 July 17, 2021 9:24am September 17, 2021 8:26am Start: 11-20-2020 End: 12-18-2020 Quetiapine (Seroquel) 25 mg tablet Discontinued 25 mg PO TWICE A DAY 60 0 November 20, 2020 12:00am December 18, 2020 12:04pm Take 1 tablet QHS x 1 week then increase to BID Comment on above: Take 25 mg by mouth twice daily. Completed/Discontinued Medications Medication Drug Class(es) Dates Sig (Normalized) Sig (Original) acetaminophen 325 mg / oxyCODONE hydrochloride 5 mg oral tablet (3 sources) Opioid Agonist Start: 07-22-2024 End: 08-01-2024 Oxycodone-Acetamin ophen (Endocet) 5-325 mg tablet Discontinued 1 {tbl} PO EVERY 6 HOURS as needed for pain 14 3 0 July 22, 2024 August 01, 2024 10:35am Medial epicondylitis of right elbow Medial epicondylitis, right elbow amoxicillin 500 mg oral tablet (3 sources) Penicillin-class Antibacterial Start: 10-18-2023 End: 11-23-2023 take 1 tablet by mouth three times daily Amoxicillin 500 mg tablet Discontinued 500 mg PO THREE TIMES A DAY 30 October 18, 2023 12:00am November 23, 2023 11:18am amoxicillin 875 mg / clavulanate 125 mg oral tablet (15 sources) Penicillin-class Antibacterial Start: 08-20-2023 End: 10-18-2023 Amoxicillin-Pot Clavulanate 875-125 mg tablet Discontinued 1 {tbl} PO TWICE A DAY August 20, 2023 12:00am October 18, 2023 6:50pm Start: 08-20-2023 take 1 tablet by vicky th twice daily Amoxicillin-Pot Clavulanate Active 1 TABLET PO TWICE A DAY August 20, 2023 12:00am Start: 08-03-2023 End: 08-10-2023 take 1 tablet by mouth twice daily amoxicillin-clavulanate potassium (AUGMENTIN) 875-125 mg per tablet Indications: Rhinosinusitis Take 1 tablet by mouth two times a day for 7 days. 14 tablet 0 08/03/2023 08/10/2023 Active Start: 03-25-2023 End: 03-30-2023 take 1 tablet by mouth twice daily amoxicillin-clavulanate potassium (AUGMENTIN) 875-125 mg per tablet Take 1 tablet by mouth two times a day for 5 days. 10 tablet 0 03/25/2023 03/30/2023 Active Start: 12-25-2022 End: 01-01-2023 take 1 tablet by mouth twice daily amoxicillin-clavulanic acid (AUGMENTIN) 875-125 mg per tablet Indications: Sinobronchitis Take 1 tablet by mouth twice daily for 7 days. 14 tablet 0 12/25/2022 01/01/2023 Active Start: 03-12-2022 End: 05-14-2022 Amoxicillin-Pot Clavulanate 875-125 mg tablet Discontinued 1 {tbl} PO TWICE A DAY March 12, 2022 12:00am May 14, 2022 6:21pm Start: 03-12-2022 End: 05-14-2022 take 1 tablet by mouth twice daily Amoxicillin-Pot Clavulanate Discontinued 1 TABLET PO TWICE A DAY March 12, 2022 12:00am May 14, 2022 6:21pm Comment on above: Take 1 tablet by vicky th twice daily for 7 days. Take 1 tablet by vicky th two times a day for 5 days. Take 1 tablet by vicky th two times a day for 7 days. apixaban (1 source) Factor Xa Inhibitor Start: 2017 End: 2020 take 2 tablets by mouth twice daily apixaban (ELIQUIS) 5 mg (74 tabs) DsPk Indications: Acute deep vein thrombosis (DVT) of proximal vein of left lower extremity (HCC) Take 5 mg by mouth twice daily. 2 pills by mouth twice daily X 1 week; then one pill by mouth twice daily. 74 tablet 2 10/13/2017 07/25/2020 Discontinued azithromycin 250 mg oral tablet (6 sources) Macrolide Antimicrobial Start: 2021 End: 2021 take 2-5 tablets by mouth once daily Azithromycin 250 mg tablet Discontinued 0 PO .COMPLEX 6 February 04, 2022 12:00am March 12, 2022 8:08am take 500 mg today (day 1), then 250 mg for 4 days (days 2-5) PO benzonatate 200 mg oral capsule (6 sources) Non-narcotic Antitussive Start: 2021 End: 2022 take 1 capsule by mouth three times daily as needed for cough Benzonatate 200 mg capsule Discontinued 200 mg PO THREE TIMES A DAY as needed for cough March 03, 2022 12:00am May 14, 2022 6:21pm cephalexin 500 mg oral capsule (11 sources) Cephalosporin Antibacterial Start: 2020 End: 2021 take 1 capsule by mouth every six hours Cephalexin 500 MG capsule Discontinued 500 mg PO EVERY 6 HOURS 40 February 19, 2021 12:00am September 17, 2021 8:14am methylPREDNISolone 4 mg oral tablet (12 sources) Corticosteroid Start: 2021 End: 2021 take 1 tablet by mouth once Methylprednisolone (Medrol (Ramon)) 4 mg tablets,dose pack Discontinued 0 PO per package directions 21 March 03, 2022 12:00am March 12, 2022 8:09am PO PER PKG DIR naproxen 500 mg oral tablet (20 sources) Nonsteroidal Anti-inflammatory Drug Start: 2022 End: 2022 take 1 tablet by mouth twice daily Naproxen 500 mg tablet Discontinued 500 mg PO TWICE A DAY 14 June 13, 2022 1:00am August 20, 2022 6:04pm Start: 02-19-2021 End: 03-19-2021 take 1 tablet by mouth twice daily Naproxen 500 MG tablet Discontinued 500 mg PO TWICE A DAY February 19, 2021 12:00am March 19, 2021 12:29pm Start: 07-23-2020 End: 11-20-2020 take 1 tablet by mouth twice daily as needed Naproxen 500 MG tablet Discontinued 500 mg PO TWICE DAILY NEEDED July 23, 2020 12:00am November 20, 2020 10:10am predniSONE 5 mg oral tablet (7 sources) Start: 02-11-2024 End: 04-06-2024 Prednisone 5 mg tablets,dose pack Discontinued 0 PO per package directions 48 February 11, 2024 12:00am April 06, 2024 2:43pm Medial epicondylitis of right elbow Medial epicondylitis, right elbow medial epicondylitis PO PER PKG DIR Start: 08-14-2023 End: 08-23-2023 predniSONE (DELTASONE) 10 mg tablet Indications: Acute recurrent pansinusitis Take 4 tabs daily for 3 days, then 2 tabs daily for 3 days, then 1 tab daily for 3 days with food. 21 tablet 0 08/14/2023 08/23/2023 Active Start: 12-25-2022 End: 12-30-2022 take 2 tablets by mouth once daily predniSONE (DELTASONE) 20 mg tablet Indications: Sinobronchitis Take 2 tablets by mouth once daily for 5 days. 10 tablet 0 12/25/2022 12/30/2022 Active Start: 09-04-2021 End: 09-13-2021 predniSONE (DELTASONE) 10 mg tablet Take 4 tabs daily for 3 days, then 2 tabs daily for 3 days, then 1 tab daily for 3 days with food. 21 tablet 0 09/04/2021 09/13/2021 Active Comment on above: Take 4 tabs daily fo r 3 days, then 2 tabs daily for 3 days, then 1 tab daily for 3 days with food. Take [address] tablets [address] [facility] once daily for 5 days. pseudoephedrine hydrochloride 30 mg oral tablet (7 sources) alpha-Adrenergi c Agonist Start: 08-27-19 End: 12-27-19 take 2 tablets by mouth twice daily pseudoephedrine (SUDAFED) 30 mg tablet Take 2 tablets by mouth twice daily. 24 tablet 0 08/26/2021 12/26/2021 Discontinued Comment on above: Take 2 tablets by mo ut twice daily. Problems Active Problems Problem Classification Problem Date Documented Date Episodic/Chronic Acute bronchitis (6 sources) Acute bronchitis; Translations: [Acute bronchitis, unspecified] 02-04-2022 Episodic Conditions associated with dizziness or vertigo (2 sources) Dizziness; Translations: [Dizziness and giddiness] Episodic Disorders of teeth and jaw (15 sources) Acute pericoronitis; Translations: [Aggressive periodontitis, unspecified] Episodic Essential hypertension (20 sources) Hypertensive disorder; Translations: [Essential (primary) hypertension] Onset: 11-23-2024 Chronic Comment on above: per pt, controlled o n meds Fever of unknown origin (9 sources) Fever; Translations: [Fever, unspecified] 12-13-2021 Episodic Headache; including migraine (1 source) Headache; Translations: [Headache, unspecified headache type] Episodic Immunizations and screening for infectious disease (8 sources) Suspected disease caused by 2019-nCoV; Translations: [Suspected COVID-19 virus infection] Episodic Intestinal infection (7 sources) Viral gastroenteritis; Translations: [Viral intestinal infection, unspecified] 01-07-2022 Episodic Malaise and fatigue (1 source) Fatigue; Translations: [Other fatigue] Episodic Mood disorders (20 sources) Bipolar disorder, most recent episode depression; Translations: [Bipolar disorder, unspecified] Chronic Comment on above: . 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 Chronic Other connective tissue disease (1 source) Tendinitis of elbow or forearm; Translations: [Other enthesopathies, not elsewhere classified] Episodic Other connective tissue disease (11 sources) Lateral epicondylitis; Translations: [Lateral epicondylitis, unspecified elbow] 09-17-2021 Episodic Other connective tissue disease (2 sources) Tendinitis of right elbow; Translations: [Other enthesopathies, not elsewhere classified] Episodic Other connective tissue disease (1 source) Chronic pain of right upper limb; Translations: [Pain in right hand] Episodic Other connective tissue disease (1 source) Pain in right hand; Translations: [Pain in right hand] 06-28-2020 Episodic Other connective tissue disease (18 sources) Medial epicondylitis of right humerus; Translations: [Medial epicondylitis, right elbow] 12-22-2023 Episodic Other connective tissue disease (3 sources) Spasm; Translations: [Other muscle spasm] 12-23-2023 Episodic Other connective tissue disease (2 sources) Medial epicondylitis, right elbow; Translations: [Medial epicondylitis, right elbow] Onset: 08-04-2024 Episodic Other ear and sense organ disorders (11 sources) Otitis externa; Translations: [Unspecified otitis externa, unspecified ear] 02-27-2021 Chronic Other ear and sense organ disorders (1 source) Acute otitis externa of left ear; Translations: [Unspecified acute noninfective otitis externa, left ear] Episodic Other nervous system disorders (11 sources) Paresthesia of left upper limb; Translations: [Paresthesia of skin] 09-17-2021 Episodic Other non-traumatic joint disorders (12 sources) Pain in elbow; Translations: [Pain in right elbow] 09-17-2021 Episodic Other non-traumatic joint disorders (9 sources) Pain in right elbow; Translations: [Pain in joint, upper arm] Onset: 11-23-2024 Episodic Other nutritional; endocrine; and metabolic disorders (9 sources) Body mass index 25-29 - overweight; Translations: [Overweight] 11-20-2021 Episodic Other nutritional; endocrine; and metabolic disorders (3 sources) Overweight; Translations: [Overweight] Episodic Other skin disorders (11 sources) Head and neck swelling; Translations: [Localized swelling, mass and lump, head] 03-01-2015 Episodic Other upper respiratory disease (1 source) Nasal congestion; Translations: [Nasal congestion] 12-16-2022 Episodic Other upper respiratory infections (16 sources) Sinusitis; Translations: [Chronic sinusitis, unspecified] 03-12-2022 Chronic Other upper respiratory infections (20 sources) Upper respiratory infection; Translations: [Acute upper respiratory infection, unspecified] 03-03-2022 Episodic Residual codes; unclassified (11 sources) Tobacco user; Translations: [Tobacco use] 12-04-2021 Episodic Residual codes; unclassified (3 sources) Tobacco use; Translations: [Tobacco use disorder] Episodic Spondylosis; intervertebral disc disorders; other back problems (20 sources) Degeneration of lumbosacral intervertebral disc; Translations: [Other intervertebral disc degeneration, lumbosacral region] Onset: 09-10-2020 09-10-2020 Chronic Spondylosis; intervertebral disc disorders; other back problems (12 sources) Backache; Translations: [Dorsalgia, unspecified] 03-19-2021 Episodic Sprains and strains (6 sources) Sprain of wrist; Translations: [Unspecified sprain of right wrist, initial encounter] 01-21-2022 Episodic Superficial injury; contusion (11 sources) Contusion of foot; Translations: [Contusion of left foot, initial encounter] 06-13-2022 Episodic Unclassified (1 source) APPOINTMENT CANCELLED Unclassified (4 sources) M77.01 - Medial epicondylitis, right elbow Unclassified (1 source) M25.521 - Pain in right elbow Viral infection (10 sources) Viral disease; Translations: [Viral infection, unspecified] Episodic Past or Other Problems Problem Classification Problem Date Documented Da te Episodic/Chronic Other bone disease and musculoskeletal deformities (20 sources) Somatic dysfunction of lumbar region; Translations: [Segmental and somatic dysfunction of lumbar region] Onset: 09-10-2020 09-10-2020 Episodic Other injuries and conditions due to external causes (1 source) Unspecified injury of right forearm, initial encounter; Translations: [Unspecified injury of right forearm, initial encounter] Onset: 12-30-2023 Episodic Results Test Name Value Interpretation Reference Range Facility [facility] 11-24-2024 CNOV Office Visit ([facility]) ECHO HYATT ([id number]) 1985 M Date Time Provider Department 11/24/24 5:00 PM VARINDER POWELL During your visit today, we recorded the following information about you: Temperature Pulse Respiration Blood pressure 98.5 degrees 85/minute 18/minute 155/86 Weight 78.4 kg Varinder Powell 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 Patient states had surgery 3 months ago. Recently returned back to work. States feeling he overdid it at work yesterday. Was unable to return to work today. Does need a work note. Is seeing pain management next week. Followed up with PCP yesterday. Care plan was established. No other concerns. No new numbness or tingling. No weakness. No fevers. No trauma. Overall feels well. Past medical history prescription medications allergies reviewed .Patient presents with: Pain (Elbow Pain): R elbow pain x this AM, has history with recent surgery, has been back to work for 1 month PAST MEDICAL HISTORY Diagnosis Date Asthma (HCC) Contracture of hand joint PAST SURGICAL HISTORY Procedure Laterality Date ABDOMINAL SURGERY HX ORIF CARPOMETACARPAL DISLOC,COMPLX/TURNER ALLERGIES Patient has no known allergies. MEDICATIONS meloxicam (MOBIC) 7.5 mg tablet fluticasone (FLONASE) 50 mcg/actuation nasal spray Use 2 Sprays in each nostril once daily. Rinse mouth after use. (Patient not taking: Reported on 11/24/2024) ofloxacin (FLOXIN) 0.3 % otic solution Use 10 Drops in the left ear once daily. (Patient not taking: Reported on 09/04/2022) amLODIPine (NORVASC) 5 mg tablet Take 5 mg by mouth once daily. ibuprofen (MOTRIN) 600 mg tablet Take 600 mg by mouth every 6 hours as needed. (Patient not taking: Reported on 03/30/2023) cyclobenzaprine (FLEXERIL) 10 mg tablet Take 1 tablet by mouth three times daily as needed for muscle spasm. (Patient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 wrist, or the elbow or the shoulder. When he flexes the wrist, it does cause discomfort in the flexor muscles more proximally. He has no bony tenderness including the medial epicondyle. There is no swelling, skin abnormality or signs of infection, tenderness when resting, or palpable cords. He has an intact pulse. all compartments soft and nondistended. Neuro oriented x3, no focal motor deficits and no sensory deficits noted Neuro Narrative: Normal median, radial, ulnar nerve sensory and motor function in the right hand, including PIN and AIN function. Sensorium / Orientation: alert Psych mental status grossly normal and thought process normal Skin no wounds Rashes: no rashes MDM MDM MDM Narrative Medical decision making narrative: Patient agrees that he had a terribly painful muscle spasm, and he wants to know why. I told him I was happy to obtain some screening labs to check electrolytes and CPK. It is all normal. He has no neurologic symptoms and his neurologic exam is normal and none of this is consistent with a DVT or compartment syndrome. Given appropriate discharge instructions for supportive care. Lab Data Attestation: I reviewed the patient's lab results. Lab results narrative: Laboratory Tests 12/15/23 Range/Units 02:28 WBC 8.1 (4.4-11.0) K/mm3 (more content not included)... Normal [facility] Absolute lymphocyte counton 12-30-2021 Lymphocytes Auto (Unsp spec) [#/Vol] 2.23 10*3/uL 0.83-4.51 [facility] Work Phone: Basophil percentageon 2021 Basophil percentage 0 SEEN /hpf 0-5 [facility] Work Phone: Basophils/100 WBC (Bld) 0.5 % 0-1 [facility] Work Phone: Bilirubin [Mass/Vol] 0.50 mg/dL 0.20-1.00 [facility] Work Phone: Comment on above: For patients on eltr ombopag therapy, use of Dimension [place] TBIL is not recommended. Chloride [Moles/Vol] 110 mmol/L 98-107 [facility] Work Phone: Eosinophils/100 WBC (Bld) 2.3 % 0-5 [facility] Work Phone: Glucose [Mass/Vol] 87 mg/dL 74-106 [facility] Work Phone: Neutrophils (Bld) [#/Vol] 2.9 10*3/uL 2.0-7.7 [facility] Work Phone: Neutrophils/100 WBC (Bld) 50.7 % 47-70 [facility] Work Phone: Potassium [Moles/Vol] 4.3 mmol/L 3.5-5.1 [facility] Work Phone: Comment on above: Moderate Hemolysis, Result may be falsely increased. Protein [Mass/Vol] 7.8 g/dL 6.4-8.2 [facility] Work Phone: Sodium [Moles/Vol] 141 mmol/L 136-145 [facility] Work Phone: WBC (Bld) [#/Vol] 5.7 10*3/uL 4.4-11.0 [facility] Work Phone: Bilirubin Test strip Ql (U)o n 12-30-2021 Bilirubin Ql (U) Negative Negative [facility] Work Phone: Blood erythrocytes count (nu mber/volume)on 12-30-2021 RBC (Bld) [#/Vol] 5.02 10*6/uL 4.6-6.2 [facility] Work Phone: Blood hemoglobin measurement (mass/volume)on 12-30-2021 Hemoglobin (Bld) [Mass/Vol] 14.5 g/dL 13.0-16.5 [facility] Work Phone: Blood lymphocytes/100 leukoc yteson 12-30-2021 Lymphocytes/100 WBC (Bld) 39.1 % 19-41 [facility] Work Phone: Blood monocytes/100 leukocyt eson 12-30-2021 Monocytes/100 WBC (Bld) 7.2 % 0-10 [facility] Work Phone: Blood platelet mean volumeon 12-30-2021 Platelet mean volume (Bld) [Entitic vol] 9.1 fL 6.2-12.0 [facility] Work Phone: Determination of erythrocyte mean corpuscular volume (MCV)on 12-30-2021 MCV (RBC) [Entitic vol] 86.7 fL 80-94 [facility] Work Phone: Direct bilirubinon Bilirubin.direct [Mass/Vol] 0.10 mg/dL 0.00-0.30 [facility] Work Phone: Hematocrit Auto (Bld) [Volum e fraction]on 12-30-2021 Hematocrit (Bld) [Volume fraction] 43.5 % 40-54 [facility] Work Phone: Ketones Test strip Ql (U)on 12-30-2021 Ketones Ql (U) Negative Negative [facility] Work Phone: Laboratory - Chemistry and C hemistry - challengeon 12-30-2021 ALP [Catalytic activity/Vol] 113 U/L 45-117 [facility] Work Phone: ALT [Catalytic activity/Vol] 53 U/L 16-61 [facility] Work Phone: CO2 [Moles/Vol] 27.0 mmol/L 21.0-32.0 [facility] Work Phone: Globulin (S) [Mass/Vol] 4.3 g/dL 2.2-4.2 [facility] Work Phone: Urea nitrogen/Creatinine [Mass ratio] 11.2 mg/mg 10-20 [facility] Work Phone: Laboratory - Hematology and Cell countson 12-30-2021 Erythrocyte distribution width (RBC) [Entitic vol] 41.1 fL 35.1-43.9 [facility] Work Phone: Erythrocyte distribution width (RBC) [Ratio] 13.1 % 11.6-14.6 [facility] Work Phone: Immature granulocytes/100 WBC (Bld) 0.200 % 0.0-0.9 [facility] Work Phone: Comment on above: IG% - Immature Granu locytes (promyelocytes, myelocytes and metamyelocytes) > 1% indicates that a LEFT SHIFT is Present. MCH (RBC) [Entitic mass] 28.9 pg 27.0-32.0 [facility] Work Phone: Nucleated RBC/100 WBC (Bld) [Ratio] 0 % 0-5 [facility] Work Phone: MCHC Auto (RBC) [Mass/Vol]on 12-30-2021 MCHC (RBC) [Mass/Vol] 33.3 g/dL 32-36 [facility] Work Phone: Mucus LM Ql (Urine sed)on Mucus Ql (Urine sed) 0 SEEN /hpf [facility] Work Phone: Nitrite Test strip Ql (U)on 12-30-2021 Nitrite Ql (U) Negative Negative [facility] Work Phone: No Panel Informationon 12-30 Estimated Creatinine Clearance Calc 94.23 ml/min [facility] Work Phone: Estimated GFR (MDRD) Amer 123 mL/min >60 [facility] Work Phone: Comment on above: GFR Calc Estimated GFR (MDRD) Non-Af Amer 102 mL/min >60 [facility] Work Phone: Comment on above: Non- GFR Calc Platelets bldon 12-30-2021 Platelets (Bld) [#/Vol] 272 10*3/uL 150-450 [facility] Work Phone: Protein Test strip Ql (U)on 12-30-2021 Protein Ql (U) Negative Negative [facility] Work Phone: Serum or plasma albumin ken urement (mass/volume)on 12-30-2021 Albumin [Mass/Vol] 3.5 g/dL 3.2-5.0 [facility] Work Phone: Serum or plasma calcium ken urement (mass/volume)on 12-30-2021 Calcium [Mass/Vol] 8.5 mg/dL 8.5-10.1 [facility] Work Phone: Serum or plasma creatinine m easurement (mass/volume)on 12-30-2021 Creatinine [Mass/Vol] 0.89 mg/dL 0.70-1.30 [facility] Work Phone: Comment on above: The validity of the calculated GFR & GFRAA in patients over 70 years has not been determined. Clinical correlation is essential. Serum or plasma urea nitroge n measurement (mass/volume)on 12-30-2021 Urea nitrogen [Mass/Vol] 10 mg/dL 7-18 [facility] Work Phone: Squamous epithelial cells de tection in urine sediment by light microscopyon 12-30-2021 Epithelial cells.squamous LM Ql (Urine sed) 0 SEEN /hpf 0-5 [facility] Work Phone: Thin prep Papanicolaou smear with manual screeningon 12-30-2021 Thin prep Papanicolaou smear with manual screening 40 U/L 15-37 [facility] Work Phone: Comment on above: Moderate Hemolysis, Result may be falsely increased. Thin prep Papanicolaou smear with manual screening 4 5-15 [facility] Work Phone: Urine blood detectionon 12-10 RBC Ql (U) Negative Negative [facility] Work Phone: RBC Ql (U) 0 SEEN /hpf 0-5 [facility] Work Phone: Urine clarityon 12-30-2021 Clarity (U) Clear Clear [facility] Work Phone: Urine color determinationon 12-30-2021 Color (U) Yellow Yellow [facility] Work Phone: Urine glucose detectionon Glucose Ql (U) Normal mg/dl Normal [facility] Work Phone: Urine leukocyte esterase det ection by dipstickon 12-30-2021 Leukocyte esterase Test strip Ql (U) Negative Negative [facility] Work Phone: Urine pHon 12-30-2021 pH (U) 6.0 [pH] 5.0 - 8.0 [facility] Work Phone: Urine sediment bacteria coun t by microscopy (number/high power field)on 12-30-2021 Bacteria LM.HPF (Urine sed) [#/Area] 0 /[HPF] None Seen [facility] Work Phone: Urine specific gravity measu rementon 12-30-2021 Specific gravity (U) [Rel density] 1.015 1.002-1.030 [facility] Work Phone: Urobilinogen Auto test strip Ql (U)on 12-30-2021 Urobilinogen Ql (U) Normal mg/dl Normal [facility] Work Phone: Absolute lymphocyte counton 09-17-2021 Lymphocytes Auto (Unsp spec) [#/Vol] 2.43 10*3/uL 0.83-4.51 [facility] Work Phone: Basophil percentageon 2021 Basophils/100 WBC (Bld) 0.5 % 0-1 [facility] Work Phone: Bilirubin [Mass/Vol] 0.50 mg/dL 0.20-1.00 [facility] Work Phone: Comment on above: For patients on eltr ombopag therapy, use of Dimension [place] TBIL is not recommended. Chloride [Moles/Vol] 106 mmol/L 98-107 [facility] Work Phone: Eosinophils/100 WBC (Bld) 1.2 % 0-5 [facility] Work Phone: Glucose [Mass/Vol] 84 mg/dL 74-106 [facility] Work Phone: Neutrophils (Bld) [#/Vol] 4.5 10*3/uL 2.0-7.7 [facility] Work Phone: Neutrophils/100 WBC (Bld) 58.1 % 47-70 [facility] Work Phone: Potassium [Moles/Vol] 4.2 mmol/L 3.5-5.1 [facility] Work Phone: Protein [Mass/Vol] 8.3 g/dL 6.4-8.2 [facility] Work Phone: Sodium [Moles/Vol] 141 mmol/L 136-145 [facility] Work Phone: WBC (Bld) [#/Vol] 7.7 10*3/uL 4.4-11.0 [facility] Work Phone: Blood erythrocytes count (nu mber/volume)on 09-17-2021 RBC (Bld) [#/Vol] 5.32 10*6/uL 4.6-6.2 [facility] Work Phone: Blood hemoglobin measurement (mass/volume)on 09-17-2021 Hemoglobin (Bld) [Mass/Vol] 15.1 g/dL 13.0-16.5 [facility] Work Phone: Blood lymphocytes/100 leukoc yteson 09-17-2021 Lymphocytes/100 WBC (Bld) 31.7 % 19-41 [facility] Work Phone: Blood monocytes/100 leukocyt eson 09-17-2021 Monocytes/100 WBC (Bld) 7.8 % 0-10 [facility] Work Phone: Blood platelet mean volumeon 09-17-2021 Platelet mean volume (Bld) [Entitic vol] 9.9 fL 6.2-12.0 [facility] Work Phone: Determination of erythrocyte mean corpuscular volume (MCV)on 09-17-2021 MCV (RBC) [Entitic vol] 89.1 fL 80-94 [facility] Work Phone: Hematocrit Auto (Bld) [Volum e fraction]on 09-17-2021 Hematocrit (Bld) [Volume fraction] 47.4 % 40-54 [facility] Work Phone: Laboratory - Chemistry and C hemistry - challengeon 09-17-2021 ALP [Catalytic activity/Vol] 106 U/L 45-117 [facility] Work Phone: ALT [Catalytic activity/Vol] 84 U/L 16-61 [facility] Work Phone: CO2 [Moles/Vol] 26.0 mmol/L 21.0-32.0 [facility] Work Phone: Globulin (S) [Mass/Vol] 4.4 g/dL 2.2-4.2 [facility] Work Phone: Urea nitrogen/Creatinine [Mass ratio] 14.8 mg/mg 10-20 [facility] Work Phone: Laboratory - Hematology and Cell countson 09-17-2021 Erythrocyte distribution width (RBC) [Entitic vol] 44.1 fL 35.1-43.9 [facility] Work Phone: Erythrocyte distribution width (RBC) [Ratio] 13.6 % 11.6-14.6 [facility] Work Phone: Immature granulocytes/100 WBC (Bld) 0.700 % 0.0-0.9 [facility] Work Phone: Comment on above: IG% - Immature Granu locytes (promyelocytes, myelocytes and metamyelocytes) > 1% indicates that a LEFT SHIFT is Present. MCH (RBC) [Entitic mass] 28.4 pg 27.0-32.0 [facility] Work Phone: Nucleated RBC/100 WBC (Bld) [Ratio] 0 % 0-5 [facility] Work Phone: MCHC Auto (RBC) [Mass/Vol]on 09-17-2021 MCHC (RBC) [Mass/Vol] 31.9 g/dL 32-[address] [facility] Work Phone: No Panel Informationon 09-17 Estimated GFR (MDRD) Amer 99 mL/min >60 [facility] Work Phone: Comment on above: GFR Calc Estimated GFR (MDRD) Non-Af Amer 81 mL/min >60 [facility] Work Phone: Comment on above: Non- GFR Calc Platelets bldon 09-17-2021 Platelets (Bld) [#/Vol] 295 10*3/uL 150-450 [facility] Work Phone: Serum or plasma albumin ken urement (mass/volume)on 09-17-2021 Albumin [Mass/Vol] 3.9 g/dL 3.2-5.0 [facility] Work Phone: Serum or plasma albumin/glob ulin mass ratioon 09-17-2021 Albumin/Globulin [Mass ratio] 0.9 {ratio} 0.9-2.4 [facility] Work Phone: Serum or plasma calcium ken urement (mass/volume)on 09-17-2021 Calcium [Mass/Vol] 9.0 mg/dL 8.5-10.1 [facility] Work Phone: Serum or plasma creatinine m easurement (mass/volume)on 09-17-2021 Creatinine [Mass/Vol] 1.08 mg/dL 0.70-1.30 [facility] Work Phone: Comment on above: The validity of the calculated GFR & GFRAA in patients over 70 years has not been determined. Clinical correlation is essential. Serum or plasma urea nitroge n measurement (mass/volume)on 09-17-2021 Urea nitrogen [Mass/Vol] 16 mg/dL 7-18 [facility] Work Phone: Thin prep Papanicolaou smear with manual screeningon 09-17-2021 Thin prep Papanicolaou smear with manual screening 33 U/L 15-37 [facility] Work Phone: Thin prep Papanicolaou smear with manual screening 9 5-15 [facility] Work Phone: XR Lumbar spine 3 Viewson IMPRESSION: MILD SCOLIOSIS. PROBABLE RIGHT NEPHROLITHIASIS Customer Leader: LUCIA Transcribe Date/Time: Jul 25 2020 12:01P Dictated by : RONAL MIGUEL MD This examination was interpreted and the report reviewed and electronically signed by: RONAL MIGUEL MD on Jul 25 2020 12:04PM [facility] DIVISION OF RADIOLOGY * * *Final Report* * * DATE OF EXAM: Jul 25 2020 11:47AM WOX 5228 - XR LUMBAR 3V AP/LAT/L5-S1 / PROCEDURE REASON: Acute left-sided low back pain without sciatica * * * * Physician Interpretation * * * * Examination: XR LUMBAR 3V AP/LAT/L5-S1 History: Acute left-sided low back pain without sciatica Technique: XR LUMBAR 3V AP/LAT/L5-S1 Comparison: CT scans of 04/10/2017 RESULT: 5 lumbar type vertebrae. Mild dextroscoliosis of approximately 10 degrees. For numbering purposes, L4-5 is at the level of the iliac crest. Normal mineralization. Disc spaces are maintained. No fracture or focal bony abnormality. Radiopaque foreign material overlying the left lateral aspect of the film. Probable right nephrolithiasis DIVISION OF RADIOLOGY [facility] * * *Final Report* * * DATE OF EXAM: Jul 25 2020 11:47AM WOX 5228 - XR LUMBAR 3V AP/LAT/L5-S1 / PROCEDURE REASON: Acute left-sided low back pain without sciatica * * * * Physician Interpretation * * * * Examination: XR LUMBAR 3V AP/LAT/L5-S1 History: Acute left-sided low back pain without sciatica Technique: XR LUMBAR 3V AP/LAT/L5-S1 Comparison: CT scans of 04/10/2017 RESULT: 5 lumbar type vertebrae. Mild dextroscoliosis of approximately 10 degrees. For numbering purposes, L4-5 is at the level of the iliac crest. Normal mineralization. Disc spaces are maintained. No fracture or focal bony abnormality. Radiopaque foreign material overlying the left lateral aspect of the film. Probable right nephrolithiasis IMPRESSION IMPRESSION: MILD SCOLIOSIS. PROBABLE RIGHT NEPHROLITHIASIS Customer Leader: LUCIA Transcribe Date/Time: Jul 25 2020 12:01P Dictated by : RONAL MIGUEL MD This examination was interpreted and the report reviewed and electronically signed by: RONAL MIGUEL MD on Jul 25 2020 12:04PM EST [facility] Radiology Study observation (narrative) [facility] XR Lumbar spine 3 ViewsOrder ed By: [facility] Provider on 07-25-2020 [facility] No Panel InformationOrdered By: [facility] Provider on 06-28-2020 [facility] No Panel Informationon 06-28 Radiology Study observation (narrative) [facility] XR Hand - right PA and Later al and Obliqueon 06-28-2020 * * *Final Report* * * DATE OF EXAM: Jun 28 2020 4:40PM WOX 5346 - XR HAND 3V PA/LAT/OBL RT / PROCEDURE REASON: Hand pain, right * * * * Physician Interpretation * * * * Indication: Right hand and wrist pain Comparison: None 3 views of the right wrist and 3 views of the right hand are obtained. There is normal architecture and mineralization of the bones. There is no acute fracture or dislocation. Joint spaces are maintained. Impression: 1. No acute fracture or dislocation. Customer Leader: [employer] Transcribe Date/Time: Jun 28 2020 4:42P Dictated by : MIMI CASTRO MD This examination was interpreted and the report reviewed and electronically signed by: MIMI CASTRO MD on Jun 28 2020 4:45PM EST DIVISION OF RADIOLOGY Provider, [facility] - 06/28/2020 * * *Final Report* * * DATE OF EXAM: Jun 28 2020 4:40PM WOX 5346 - XR HAND 3V PA/LAT/OBL RT / PROCEDURE REASON: Hand pain, right * * * * Physician Interpretation * * * * Indication: Right hand and wrist pain Comparison: None 3 views of the right wrist and 3 views of the right hand are obtained. There is normal architecture and mineralization of the bones. There is no acute fracture or dislocation. Joint spaces are maintained. Impression: 1. No acute fracture or dislocation. [facility] Transcribe Date/Time: Jun 28 2020 4:42P Dictated by : MIMI CASTRO MD This examination was interpreted and the report reviewed and electronically signed by: MIMI CASTRO MD on Jun 28 2020 4:45PM EST [facility] XR Wrist - right PA and Late ral and Obliqueon 06-28-2020 * * *Final Report* * * DATE OF EXAM: Jun 28 2020 4:40PM WOX 5271 - XR WRIST 3V PA/LAT/OBL RT / PROCEDURE REASON: Hand pain, right * * * * Physician Interpretation * * * * Indication: Right hand and wrist pain Comparison: None 3 views of the right wrist and 3 views of the right hand are obtained. There is normal architecture and mineralization of the bones. There is no acute fracture or dislocation. Joint spaces are maintained. Impression: 1. No acute fracture or dislocation. Customer Leader: [employer] Transcribe Date/Time: Jun 28 2020 4:42P Dictated by : MIMI CASTRO MD This examination was interpreted and the report reviewed and electronically signed by: MIMI CASTRO MD on Jun 28 2020 4:45PM EST DIVISION OF RADIOLOGY Provider, [facility] - 06/28/2020 * * *Final Report* * * DATE OF EXAM: Jun 28 2020 4:40PM WOX 5271 - XR WRIST 3V PA/LAT/OBL RT / PROCEDURE REASON: Hand pain, right * * * * Physician Interpretation * * * * Indication: Right hand and wrist pain Comparison: None 3 views of the right wrist and 3 views of the right hand are obtained. There is normal architecture and mineralization of the bones. There is no acute fracture or dislocation. Joint spaces are maintained. Impression: 1. No acute fracture or dislocation. Customer Leader: [employer] Transcribe Date/Time: Jun 28 2020 4:42P Dictated by : MIMI CASTRO MD This examination was interpreted and the report reviewed and electronically signed by: MIMI CASTRO MD on Jun 28 2020 4:45PM EST [facility] Emergency Room Note on 07-14-2017 [place] Emergency Room Note Normal [facility] ([place]) Pat Eduon 07-14-2017 Pat Edu Normal [facility] [place] Patient Summary Documentson 07-14-2017 Patient Summary Documents Normal [facility] ([place]) XR HAND MINIMUM 3 VIEWS RIGH Ton 03-06-2018 XR HAND MINIMUM 3 VIEWS RIGHT ORIGINALXR HAND MINIMUM 3 VIEWS RIGHT CLINICAL STATEMENT: Pain after fall COMPARISON: None FINDINGS: No acute fracture or dislocation is identified. There is a small defect in the 5th metacarpal head with a adjacent ossific fragment, this is chronic in appearance The joint spaces are maintained. There is no radiopaque foreign body. IMPRESSION: No acute fracture or dislocation. Suspect old fracture of the 5th metacarpal head. Interpreted By: Eric Zurita MDPreliminary Report By: Eric Zurita MDElectronically Signed By: Eric Zurita MD Dictated Date: 07/14/2017 12:04:40 PM Prelim Date: 07/14/2017 12:04:40 PM Sign Date: 07/14/2017 12:06:12 PM Normal [facility] ([place]) XR WRIST MINIMUM 3 VIEWS RIG HTon 07-14-2017 XR WRIST MINIMUM 3 VIEWS RIGHT ORIGINALXR WRIST MINIMUM 4 views RIGHT, Clinical Statement: fall, , trauma, pain Comparison: None Findings: There is no visualized acute fracture or dislocation. No radio-opaque foreign body or soft tissue gas is seen. Degenerative changes at the DRUJ. IMPRESSION:No acute fracture seen. Interpreted By: Suresh Narvaez MDPreliminary Report By: Suresh Narvaez MDElectronically Signed By: Suresh Narvaez MD Dictated Date: 07/14/2017 12:03:22 PM Prelim Date: 07/14/2017 12:03:22 PM Sign Date: 07/14/2017 12:06:22 PM Normal [facility] ([place]) Vital Signs Date Time Vital Sign Value Performing Clinician Owen parada 11-24-2024 17:09-0400 Body mass index (BMI) [Ratio] 29.67 kg/m2 Varinder Powell APRN.PHOTOGRAPHIC LABORATORY SUPERVISOR Work Phone: [facility] 11-24-2024 17:09-0400 Body temperature 98.49 [degF] Varinder Powell APRN.CNP Work Phone: [facility] 11-24-2024 17:09-0400 Body weight 78.4 kg Varinder Powell APRN.KELLY Work Phone: [facility] 11-24-2024 17:09-0400 Diastolic blood pressure 86 mm[Hg] [facility] GRAPHICS MANAGER.PHOTOGRAPHIC LABORATORY SUPERVISOR Work Phone: [facility] 11-24-2024 17:09-0400 Heart rate 85 /min [facility] GRAPHICS MANAGER.PHOTOGRAPHIC LABORATORY SUPERVISOR Work Phone: [facility] 11-24-2024 17:09-0400 Respiratory rate 18 /min [facility] GRAPHICS MANAGER.PHOTOGRAPHIC LABORATORY SUPERVISOR Work Phone: [facility] 11-24-2024 17:09-0400 SaO2% (BldA) [Mass fraction] 97 % [facility] GRAPHICS MANAGER.PHOTOGRAPHIC LABORATORY SUPERVISOR Work Phone: [facility] 11-24-2024 17:09-0400 Systolic blood pressure 155 mm[Hg] [facility] GRAPHICS MANAGER.PHOTOGRAPHIC LABORATORY SUPERVISOR Work Phone: [facility] 11-23-2024 18:10-0400 Body height 162.[address] Farncy Boss MD Work Phone: [facility] 11-23-2024 18:10-0400 Body mass index (BMI) [Ratio] 29.5 kg/m2 Dr. Francy Boss MD Work Phone: [facility] 11-23-2024 18:10-0400 Body temperature 98.6 [degF] Dr. Francy Boss MD Work Phone: [facility] 11-23-2024 18:10-0400 Body weight 78.[address] Francy Boss MD Work Phone: [facility] 11-23-2024 18:10-0400 Diastolic blood pressure 78 mm[Hg] Dr. Francy Boss MD Work Phone: [facility] 11-23-2024 18:10-0400 Heart rate 91 /min Dr. Francy Boss MD Work Phone: [facility] 11-23-2024 18:10-0400 Respiratory rate 16 /min Dr. Francy Boss MD Work Phone: [facility] 11-23-2024 18:10-0400 SaO2% (BldA) [Mass fraction] 98 % Dr. Francy Boss MD Work Phone: [facility] 11-23-2024 18:10-0400 Systolic blood pressure 130 mm[Hg] Dr. Francy Boss MD Work Phone: [facility] 08-04-2024 09:14-0400 Body height 162.[address] Francy Boss MD Work Phone: [facility] 08-04-2024 09:14-0400 Body mass index (BMI) [Ratio] 29.2 kg/m2 Dr. Francy Boss MD Work Phone: [facility] 08-04-2024 09:14-0400 Body weight 77.[address] Francy Boss MD Work Phone: [facility] 08-01-2024 10:31-0400 Body mass index (BMI) [Ratio] 29.7 kg/m2 Dr. Francy Boss MD Work Phone: [facility] 08-01-2024 10:31-0400 Body temperature 97.6 [degF] Dr. Francy Boss MD Work Phone: [facility] 08-01-2024 10:31-0400 Body weight 78.[address] Franyc Boss MD Work Phone: [facility] 08-01-2024 10:31-0400 Diastolic blood pressure 82 mm[Hg] Dr. Francy Boss MD Work Phone: [facility] 08-01-2024 10:31-0400 Heart rate 72 /min Dr. Francy Boss MD Work Phone: [facility] 08-01-2024 10:31-0400 Respiratory rate 18 /min Dr. Francy Boss MD Work Phone: [facility] 08-01-2024 10:31-0400 SaO2% (BldA) [Mass fraction] 94 % Dr. Francy Boss MD Work Phone: [facility] 08-01-2024 10:31-0400 Systolic blood pressure 124 mm[Hg] Dr. Francy Boss MD Work Phone: [facility] 07-22-2024 10:47-0400 Body temperature 98.2 [degF] Dr. Francy Boss MD Work Phone: [facility] 07-22-2024 10:47-0400 Diastolic blood pressure 74 mm[Hg] Dr. Francy Boss MD Work Phone: [facility] 07-22-2024 10:47-0400 Heart rate 85 /min Dr. Francy Boss MD Work Phone: [facility] 07-22-2024 10:47-0400 Respiratory rate 14 /min Dr. Francy Boss MD Work Phone: [facility] 07-22-2024 10:47-0400 SaO2% (BldA) [Mass fraction] 96 % Dr. Francy Boss MD Work Phone: [facility] 07-22-2024 10:47-0400 Systolic blood pressure 126 mm[Hg] Dr. Francy Boss MD Work Phone: [facility] 07-22-2024 06:34-0400 Body height 162.[address] Francy Boss MD Work Phone: [facility] 07-22-2024 06:34-0400 Body mass index (BMI) [Ratio] 29.2 kg/m2 Dr. Francy Boss MD Work Phone: [facility] 07-22-2024 06:34-0400 Body weight 77.[address] Francy Boss MD Work Phone: [facility] 05-02-2024 08:39-0500 Body mass index (BMI) [Ratio] 29 kg/m2 Dr. Francy Boss MD Work Phone: [facility] 05-02-2024 08:39-0500 Body temperature 97.8 [degF] Dr. Francy Boss MD Work Phone: [facility] 05-02-2024 08:39-0500 Body weight 76.[address] Francy Boss MD Work Phone: [facility] 05-02-2024 08:39-0500 Diastolic blood pressure 82 mm[Hg] Dr. Francy Boss MD Work Phone: [facility] 05-02-2024 08:39-0500 Heart rate 69 /min Dr. Francy Boss MD Work Phone: [facility] 05-02-2024 08:39-0500 Respiratory rate 16 /min Dr. Francy Boss MD Work Phone: [facility] 05-02-2024 08:39-0500 SaO2% (BldA) [Mass fraction] 98 % Dr. Francy Boss MD Work Phone: [facility] 05-02-2024 08:39-0500 Systolic blood pressure 140 mm[Hg] Dr. Francy Boss MD Work Phone: [facility] 08-20-2023 13:52-0400 Body temperature 98.3 [degF] Dr. Francy Boss Work Phone: [facility] 08-20-2023 13:52-0400 Diastolic blood pressure 77 mm[Hg] Dr. Francy Boss Work Phone: [facility] 08-20-2023 13:52-0400 Heart rate 84 /min Dr. Francy Boss Work Phone: [facility] 08-20-2023 13:52-0400 Respiratory rate 18 /min Dr. Francy Boss Work Phone: [facility] 08-20-2023 13:52-0400 SaO2% (BldA) [Mass fraction] 99 % Dr. Francy Boss Work Phone: [facility] 08-20-2023 13:52-0400 Systolic blood pressure 131 mm[Hg] Dr. Francy Boss Work Phone: [facility] 08-20-2023 13:05-0400 Body height 162.[address] Francy Boss Work Phone: [facility] 08-20-2023 13:05-0400 Body mass index (BMI) [Ratio] 28 kg/m2 Dr. Francy Boss Work Phone: [facility] 08-20-2023 13:05-0400 Body weight 74.[address] Francy Boss Work Phone: [facility] 08-14-2023 14:08-0400 Body temperature 97.5 [degF] Kimmie Athy PA-C Work Phone: [facility] 08-14-2023 14:08-0400 Body weight 73.4 kg Kimmie Athy PA-C Work Phone: [facility] 08-14-2023 14:08-0400 Diastolic blood pressure 82 mm[Hg] Kimmie Athy PA-C Work Phone: [facility] 08-14-2023 14:08-0400 Heart rate 91 /min Kimmie Athy PA-C Work Phone: [facility] 08-14-2023 14:08-0400 Respiratory rate 18 /min Kimmie Athy PA-C Work Phone: [facility] 08-14-2023 14:08-0400 SaO2% (BldA) [Mass fraction] 99 % Kimmie Athy PA-C Work Phone: [facility] 08-14-2023 14:08-0400 Systolic blood pressure 151 mm[Hg] Kimmie Athy PA-C Work Phone: [facility] 08-03-2023 09:13-0400 Body temperature 97.2 [degF] Katrin Stephen APRN.PHOTOGRAPHIC LABORATORY SUPERVISOR Work Phone: [facility] 08-03-2023 09:13-0400 Body weight 73.2 kg Katrin Stephen APRN.PHOTOGRAPHIC LABORATORY SUPERVISOR Work Phone: [facility] 08-03-2023 09:13-0400 Diastolic blood pressure 78 mm[Hg] Katrin Stephen APRN.PHOTOGRAPHIC LABORATORY SUPERVISOR Work Phone: [facility] 08-03-2023 09:13-0400 Heart rate 103 /min Katrin Stephen APRN.PHOTOGRAPHIC LABORATORY SUPERVISOR Work Phone: [facility] 08-03-2023 09:13-0400 Respiratory rate 16 /min Katrin Stephen APRN.PHOTOGRAPHIC LABORATORY SUPERVISOR Work Phone: [facility] 08-03-2023 09:13-0400 SaO2% (BldA) [Mass fraction] 100 % Katrin Stephen APRN.PHOTOGRAPHIC LABORATORY SUPERVISOR Work Phone: [facility] 08-03-2023 09:13-0400 Systolic blood pressure 110 mm[Hg] Katrin Stephen APRN.PHOTOGRAPHIC LABORATORY SUPERVISOR Work Phone: [facility] 03-30-2023 07:36-0500 Body temperature 97.5 [degF] Kimmie Athy PA-C Work Phone: [facility] 03-30-2023 07:36-0500 Body weight 73.39 kg Kimmie Athy PA-C Work Phone: [facility] 03-30-2023 07:36-0500 Diastolic blood pressure 78 mm[Hg] Kimmie Athy PA-C Work Phone: [facility] 03-30-2023 07:36-0500 Heart rate 97 /min Kimmie Athy PA-C Work Phone: [facility] 03-30-2023 07:36-0500 Respiratory rate 21 /min Kimmie Athy PA-C Work Phone: [facility] 03-30-2023 07:36-0500 SaO2% (BldA) [Mass fraction] 99 % Kimmie Athy PA-C Work Phone: [facility] 03-30-2023 07:36-0500 Systolic blood pressure 120 mm[Hg] Kimmie Athy PA-C Work Phone: [facility] 03-25-2023 14:31-0500 Body temperature 97.81 [degF] Krislyn Aberegg PA Work Phone: [facility] 03-25-2023 14:31-0500 Body weight 74.39 kg Krislyn Aberegg PA Work Phone: [facility] 03-25-2023 14:31-0500 Diastolic blood pressure 84 mm[Hg] Krislyn Aberegg PA Work Phone: [facility] 03-25-2023 14:31-0500 Heart rate 99 /min Krislyn Aberegg PA Work Phone: [facility] 03-25-2023 14:31-0500 Respiratory rate 16 /min Krislyn Aberegg PA Work Phone: [facility] 03-25-2023 14:31-0500 SaO2% (BldA) [Mass fraction] 98 % Krislyn Aberegg PA Work Phone: [facility] 03-25-2023 14:31-0500 Systolic blood pressure 124 mm[Hg] Krislyn Aberegg PA Work Phone: [facility] 01-28-2023 14:32-0400 Body mass index (BMI) [Ratio] 38.6 kg/m2 [facility] 01-28-2023 14:32-0400 Body weight 102.05 kg [facility] 01-28-2023 13:56-0400 Body height 162.56 cm [facility] 01-28-2023 13:56-0400 Body temperature 97.3 [degF] [facility] 01-28-2023 13:56-0400 Diastolic blood pressure 79 mm[Hg] [facility] 01-28-2023 13:56-0400 Heart rate 89 /min [facility] 01-28-2023 13:56-0400 Respiratory rate 18 /min [facility] 01-28-2023 13:56-0400 SaO2% (BldA) [Mass fraction] 98 % [facility] 01-28-2023 13:56-0400 Systolic blood pressure 123 mm[Hg] [facility] 12-29-2022 10:45-0400 Body temperature 97.39 [degF] Cheryl Praisler-Wood GRAPHICS MANAGER.PHOTOGRAPHIC LABORATORY SUPERVISOR Work Phone: [facility] 12-29-2022 10:45-0400 Body weight 73.66 kg Cheryl Praisler-Wood GRAPHICS MANAGER.PHOTOGRAPHIC LABORATORY SUPERVISOR Work Phone: [facility] 12-29-2022 10:45-0400 Diastolic blood pressure 84 mm[Hg] Cheryl Praisler-Wood GRAPHICS MANAGER.PHOTOGRAPHIC LABORATORY SUPERVISOR Work Phone: [facility] 12-29-2022 10:45-0400 Heart rate 75 /min Cheryl Praisler-Wood GRAPHICS MANAGER.PHOTOGRAPHIC LABORATORY SUPERVISOR Work Phone: [facility] 12-29-2022 10:45-0400 Respiratory rate 21 /min Cheryl Praisler-Wood GRAPHICS MANAGER.PHOTOGRAPHIC LABORATORY SUPERVISOR Work Phone: [facility] 12-29-2022 10:45-0400 SaO2% (BldA) [Mass fraction] 100 % Cheryl Praisler-Wood GRAPHICS MANAGER.PHOTOGRAPHIC LABORATORY SUPERVISOR Work Phone: [facility] 12-29-2022 10:45-0400 Systolic blood pressure 120 mm[Hg] Cheryl Praisler-Wood GRAPHICS MANAGER.PHOTOGRAPHIC LABORATORY SUPERVISOR Work Phone: [facility] 12-25-2022 18:43-0400 Body temperature 97.81 [degF] Leroy Milan GRAPHICS MANAGER.PHOTOGRAPHIC LABORATORY SUPERVISOR Work Phone: [facility] 12-25-2022 18:43-0400 Body weight 73.75 kg Leroy Milan GRAPHICS MANAGER.PHOTOGRAPHIC LABORATORY SUPERVISOR Work Phone: [facility] 12-25-2022 18:43-0400 Diastolic blood pressure 82 mm[Hg] Leroy Milan GRAPHICS MANAGER.PHOTOGRAPHIC LABORATORY SUPERVISOR Work Phone: [facility] 12-25-2022 18:43-0400 Heart rate 90 /min Leroy Milan GRAPHICS MANAGER.PHOTOGRAPHIC LABORATORY SUPERVISOR Work Phone: [facility] 12-25-2022 18:43-0400 Respiratory rate 20 /min Leroy Milan GRAPHICS MANAGER.PHOTOGRAPHIC LABORATORY SUPERVISOR Work Phone: [facility] 12-25-2022 18:43-0400 SaO2% (BldA) [Mass fraction] 99 % Leory Milan GRAPHICS MANAGER.PHOTOGRAPHIC LABORATORY SUPERVISOR Work Phone: [facility] 12-25-2022 18:43-0400 Systolic blood pressure 110 mm[Hg] Leroy Milan GRAPHICS MANAGER.PHOTOGRAPHIC LABORATORY SUPERVISOR Work Phone: [facility] 12-16-2022 18:26-0400 Body temperature 98.1 [degF] Cheryl Praisler-Wood GRAPHICS MANAGER.PHOTOGRAPHIC LABORATORY SUPERVISOR Work Phone: [facility] 12-16-2022 18:26-0400 Body weight 74.66 kg Cheryl Praisler-Wood GRAPHICS MANAGER.PHOTOGRAPHIC LABORATORY SUPERVISOR Work Phone: [facility] 12-16-2022 18:26-0400 Diastolic blood pressure 84 mm[Hg] Cheryl Praisler-Wood GRAPHICS MANAGER.PHOTOGRAPHIC LABORATORY SUPERVISOR Work Phone: [facility] 12-16-2022 18:26-0400 Heart rate 74 /min Cheryl Praisler-Wood GRAPHICS MANAGER.PHOTOGRAPHIC LABORATORY SUPERVISOR Work Phone: [facility] 12-16-2022 18:26-0400 Respiratory rate 18 /min Cheryl Praisler-Wood GRAPHICS MANAGER.PHOTOGRAPHIC LABORATORY SUPERVISOR Work Phone: [facility] 12-16-2022 18:26-0400 SaO2% (BldA) [Mass fraction] 97 % Cheryl Desir GRAPHICS MANAGER.PHOTOGRAPHIC LABORATORY SUPERVISOR Work Phone: [facility] 12-16-2022 18:26-0400 Systolic blood pressure 136 mm[Hg] Cheryl Doyle-Jasen GRAPHICS MANAGER.PHOTOGRAPHIC LABORATORY SUPERVISOR Work Phone: [facility] 09-04-2022 18:49-0400 Body temperature 100.6 [degF] Katrin Stephen APRN.PHOTOGRAPHIC LABORATORY SUPERVISOR Work Phone: [facility] 09-04-2022 18:49-0400 Body weight 77.11 kg Katrin Stephen APRN.PHOTOGRAPHIC LABORATORY SUPERVISOR Work Phone: [facility] 09-04-2022 18:49-0400 Diastolic blood pressure 78 mm[Hg] Katrin Stephen GRAPHICS MANAGER.PHOTOGRAPHIC LABORATORY SUPERVISOR Work Phone: [facility] 09-04-2022 18:49-0400 Heart rate 102 /min Katrin Stephen APRN.PHOTOGRAPHIC LABORATORY SUPERVISOR Work Phone: [facility] 09-04-2022 18:49-0400 Respiratory rate 18 /min Katrin Stephen APRN.PHOTOGRAPHIC LABORATORY SUPERVISOR Work Phone: [facility] 09-04-2022 18:49-0400 SaO2% (BldA) [Mass fraction] 99 % Katrin Stephen APRN.PHOTOGRAPHIC LABORATORY SUPERVISOR Work Phone: [facility] 09-04-2022 18:49-0400 Systolic blood pressure 110 mm[Hg] Katrin Stephen APRN.PHOTOGRAPHIC LABORATORY SUPERVISOR Work Phone: [facility] 08-04-2022 14:50-0400 Body temperature 98.2 [degF] Krislyn Aberegg PA Work Phone: [facility] 08-04-2022 14:50-0400 Body weight 75.75 kg Krislyn Aberegg PA Work Phone: [facility] 08-04-2022 14:50-0400 Diastolic blood pressure 86 mm[Hg] Krislyn Aberegg PA Work Phone: [facility] 08-04-2022 14:50-0400 Heart rate 96 /min Krislyn Aberegg PA Work Phone: [facility] 08-04-2022 14:50-0400 Respiratory rate 18 /min Krislyn Aberegg PA Work Phone: [facility] 08-04-2022 14:50-0400 SaO2% (BldA) [Mass fraction] 98 % Krislyn Aberegg PA Work Phone: [facility] 08-04-2022 14:50-0400 Systolic blood pressure 140 mm[Hg] Krislyn Aberegg PA Work Phone: [facility] 07-09-2022 17:48-0500 Body temperature 98.1 [degF] Leroy Milan GRAPHICS MANAGER.PHOTOGRAPHIC LABORATORY SUPERVISOR Work Phone: [facility] 07-09-2022 17:48-0500 Body weight 73.85 kg Leroy Milan GRAPHICS MANAGER.PHOTOGRAPHIC LABORATORY SUPERVISOR Work Phone: [facility] 07-09-2022 17:48-0500 Diastolic blood pressure 84 mm[Hg] Leroy Milan GRAPHICS MANAGER.PHOTOGRAPHIC LABORATORY SUPERVISOR Work Phone: [facility] 07-09-2022 17:48-0500 Heart rate 69 /min Leroy Milan GRAPHICS MANAGER.PHOTOGRAPHIC LABORATORY SUPERVISOR Work Phone: [facility] 07-09-2022 17:48-0500 Respiratory rate 18 /min Leroy Milan GRAPHICS MANAGER.PHOTOGRAPHIC LABORATORY SUPERVISOR Work Phone: [facility] 07-09-2022 17:48-0500 SaO2% (BldA) [Mass fraction] 97 % Leroy Milan GRAPHICS MANAGER.PHOTOGRAPHIC LABORATORY SUPERVISOR Work Phone: [facility] 07-09-2022 17:48-0500 Systolic blood pressure 130 mm[Hg] Leroy Milan GRAPHICS MANAGER.PHOTOGRAPHIC LABORATORY SUPERVISOR Work Phone: [facility] 07-08-2022 19:48-0500 Body temperature 97.81 [degF] Leroy Milan GRAPHICS MANAGER.PHOTOGRAPHIC LABORATORY SUPERVISOR Work Phone: [facility] 07-08-2022 19:48-0500 Body weight 74.93 kg Leroy Yates GRAPHICS MANAGER.PHOTOGRAPHIC LABORATORY SUPERVISOR Work Phone: [facility] 07-08-2022 19:48-0500 Diastolic blood pressure 98 mm[Hg] Leroy Yates GRAPHICS MANAGER.PHOTOGRAPHIC LABORATORY SUPERVISOR Work Phone: [facility] 07-08-2022 19:48-0500 Heart rate 98 /min Leroy Yates GRAPHICS MANAGER.PHOTOGRAPHIC LABORATORY SUPERVISOR Work Phone: [facility] 07-08-2022 19:48-0500 Respiratory rate 18 /min Leroy Yates GRAPHICS MANAGER.PHOTOGRAPHIC LABORATORY SUPERVISOR Work Phone: [facility] 07-08-2022 19:48-0500 SaO2% (BldA) [Mass fraction] 98 % Leroy Yates GRAPHICS MANAGER.PHOTOGRAPHIC LABORATORY SUPERVISOR Work Phone: [facility] 07-08-2022 19:48-0500 Systolic blood pressure 160 mm[Hg] Leroy Yates GRAPHICS MANAGER.PHOTOGRAPHIC LABORATORY SUPERVISOR Work Phone: [facility] 06-13-2022 16:11-0500 Body height 162.[address] Francy Boss Work Phone: [facility] 06-13-2022 16:11-0500 Body mass index (BMI) [Ratio] 27.8 kg/m2 Dr. Francy Boss Work Phone: [facility] 06-13-2022 16:11-0500 Body temperature 97 [degF] Dr. Francy Boss Work Phone: [facility] 06-13-2022 16:11-0500 Body weight 73.[address] Francy Boss Work Phone: [facility] 06-13-2022 16:11-0500 Diastolic blood pressure 86 mm[Hg] Dr. Francy Boss Work Phone: [facility] 06-13-2022 16:11-0500 Heart rate 79 /min Dr. Farncy Boss Work Phone: [facility] 06-13-2022 16:11-0500 Respiratory rate 18 /min Dr. Francy Boss Work Phone: [facility] 06-13-2022 16:11-0500 SaO2% (BldA) [Mass fraction] 100 % Dr. Francy Boss Work Phone: [facility] 06-13-2022 16:11-0500 Systolic blood pressure 144 mm[Hg] Dr. Francy Boss Work Phone: [facility] 05-28-2022 09:31-0500 Body temperature 97.39 [degF] Leroy Milan GRAPHICS MANAGER.PHOTOGRAPHIC LABORATORY SUPERVISOR Work Phone: [facility] 05-28-2022 09:31-0500 Body weight 73.39 kg Leroy Milan GRAPHICS MANAGER.PHOTOGRAPHIC LABORATORY SUPERVISOR Work Phone: [facility] 05-28-2022 09:31-0500 Diastolic blood pressure 82 mm[Hg] Leroy Milan GRAPHICS MANAGER.PHOTOGRAPHIC LABORATORY SUPERVISOR Work Phone: [facility] 05-28-2022 09:31-0500 Heart rate 67 /min Leroy Milan GRAPHICS MANAGER.PHOTOGRAPHIC LABORATORY SUPERVISOR Work Phone: [facility] 05-28-2022 09:31-0500 Respiratory rate 16 /min Leroy Milan GRAPHICS MANAGER.PHOTOGRAPHIC LABORATORY SUPERVISOR Work Phone: [facility] 05-28-2022 09:31-0500 SaO2% (BldA) [Mass fraction] 99 % Leroy Milan GRAPHICS MANAGER.PHOTOGRAPHIC LABORATORY SUPERVISOR Work Phone: [facility] 05-28-2022 09:31-0500 Systolic blood pressure 132 mm[Hg] Leroy Milan GRAPHICS MANAGER.PHOTOGRAPHIC LABORATORY SUPERVISOR Work Phone: [facility] 05-14-2022 17:23-0500 Body mass index (BMI) [Ratio] 27.3 kg/m2 Dr. Francy Boss Work Phone: [facility] 05-14-2022 17:23-0500 Body temperature 98.8 [degF] Dr. Francy Boss Work Phone: [facility] 05-14-2022 17:23-0500 Body weight 72.[address] Francy Boss Work Phone: [facility] 05-14-2022 17:23-0500 Diastolic blood pressure 84 mm[Hg] Dr. Francy Boss Work Phone: [facility] 05-14-2022 17:23-0500 Heart rate 81 /min Dr. Francy Boss Work Phone: [facility] 05-14-2022 17:23-0500 Respiratory rate 14 /min Dr. Francy Boss Work Phone: [facility] 05-14-2022 17:23-0500 SaO2% (BldA) [Mass fraction] 98 % Dr. Francy Boss Work Phone: [facility] 05-14-2022 17:23-0500 Systolic blood pressure 120 mm[Hg] Dr. Francy Boss Work Phone: [facility] 03-12-2022 08:11-0400 Body mass index (BMI) [Ratio] 28.1 kg/m2 Dr. Francy Boss Work Phone: [facility] 03-12-2022 08:11-0400 Body temperature 97 [degF] Dr. Francy Boss Work Phone: [facility] 03-12-2022 08:11-0400 Body weight 74.[address] Francy Boss Work Phone: [facility] 03-12-2022 08:11-0400 Diastolic blood pressure 88 mm[Hg] Dr. Francy Boss Work Phone: [facility] 03-12-2022 08:11-0400 Heart rate 88 /min Dr. Francy Boss Work Phone: [facility] 03-12-2022 08:11-0400 Respiratory rate 16 /min Dr. Francy Boss Work Phone: [facility] 03-12-2022 08:11-0400 SaO2% (BldA) [Mass fraction] 99 % Dr. Francy Boss Work Phone: [facility] 03-12-2022 08:11-0400 Systolic blood pressure 128 mm[Hg] Dr. Francy Boss Work Phone: [facility] 03-03-2022 08:25-0400 Body temperature 98.2 [degF] Dr. Francy Boss Work Phone: [facility] 03-03-2022 08:25-0400 Diastolic blood pressure 72 mm[Hg] Dr. Francy Boss Work Phone: [facility] 03-03-2022 08:25-0400 Heart rate 86 /min Dr. Francy Boss Work Phone: [facility] 03-03-2022 08:25-0400 Respiratory rate 14 /min Dr. Francy Boss Work Phone: [facility] 03-03-2022 08:25-0400 SaO2% (BldA) [Mass fraction] 99 % Dr. Francy Boss Work Phone: [facility] 03-03-2022 08:25-0400 Systolic blood pressure 116 mm[Hg] Dr. Francy Boss Work Phone: [facility] 02-25-2022 19:59-0400 Body temperature 97.9 [degF] Katrin Stephen APRN.PHOTOGRAPHIC LABORATORY SUPERVISOR Work Phone: [facility] 02-25-2022 19:59-0400 Body weight 74.93 kg Katrin Stephen APRN.PHOTOGRAPHIC LABORATORY SUPERVISOR Work Phone: [facility] 02-25-2022 19:59-0400 Diastolic blood pressure 82 mm[Hg] Katrin Stephen APRN.PHOTOGRAPHIC LABORATORY SUPERVISOR Work Phone: [facility] 02-25-2022 19:59-0400 Heart rate 92 /min Katrin Stephen APRN.PHOTOGRAPHIC LABORATORY SUPERVISOR Work Phone: [facility] 02-25-2022 19:59-0400 Respiratory rate 18 /min Katrin Stephen APRN.PHOTOGRAPHIC LABORATORY SUPERVISOR Work Phone: [facility] 02-25-2022 19:59-0400 SaO2% (BldA) [Mass fraction] 99 % Katrin Stephen APRN.PHOTOGRAPHIC LABORATORY SUPERVISOR Work Phone: [facility] 02-25-2022 19:59-0400 Systolic blood pressure 128 mm[Hg] Katrin Stephen APRN.PHOTOGRAPHIC LABORATORY SUPERVISOR Work Phone: [facility] 12-30-2021 09:53-0400 Body height 162.[address] Francy Boss Work Phone: [facility] Work Phone: 12-30-2021 09:53-0400 Body mass index (BMI) [Ratio] 28.3 kg/m2 Dr. Francy Boss Work Phone: [facility] Work Phone: 12-30-2021 09:53-0400 Body temperature 97.2 [degF] Dr. Francy Boss Work Phone: [facility] Work Phone: 12-30-2021 09:53-0400 Body weight 74.[address] Francy Boss Work Phone: [facility] Work Phone: 12-30-2021 09:53-0400 Diastolic blood pressure 92 mm[Hg] Dr. Francy Boss Work Phone: [facility] Work Phone: 12-30-2021 09:53-0400 Heart rate 67 /min Dr. Francy Boss Work Phone: [facility] Work Phone: 12-30-2021 09:53-0400 Respiratory rate 16 /min Dr. Francy Boss Work Phone: [facility] Work Phone: 12-30-2021 09:53-0400 SaO2% (BldA) [Mass fraction] 99 % Dr. Francy Boss Work Phone: [facility] Work Phone: 12-30-2021 09:53-0400 Systolic blood pressure 132 mm[Hg] Dr. Francy Boss Work Phone: [facility] Work Phone: 12-26-2021 18:41-0400 Body temperature 98.6 [degF] Ramón Norton MD Work Phone: [facility] 12-26-2021 18:41-0400 Body weight 74.12 kg Ramón Norton MD Work Phone: [facility] 12-26-2021 18:41-0400 Diastolic blood pressure 82 mm[Hg] Ramón Norton MD Work Phone: [facility] 12-26-2021 18:41-0400 Heart rate 107 /min Ramón Norton MD Work Phone: [facility] 12-26-2021 18:41-0400 Respiratory rate 18 /min Ramón Norton MD Work Phone: [facility] 12-26-2021 18:41-0400 SaO2% (BldA) [Mass fraction] 97 % Ramón Norton MD Work Phone: [facility] 12-26-2021 18:41-0400 Systolic blood pressure 134 mm[Hg] Ramón Norton MD Work Phone: [facility] 12-16-2021 23:31-0400 Heart rate 74 /min Dr. Francy Boss Work Phone: [facility] Work Phone: 12-16-2021 23:31-0400 Respiratory rate 15 /min Dr. Francy Boss Work Phone: [facility] Work Phone: 12-16-2021 23:31-0400 SaO2% (BldA) [Mass fraction] 98 % Dr. Francy Boss Work Phone: [facility] Work Phone: 12-16-2021 22:58-0400 Body height 162.[address] Francy Boss Work Phone: [facility] Work Phone: 12-16-2021 22:58-0400 Body mass index (BMI) [Ratio] 29.2 kg/m2 Dr. Francy Boss Work Phone: [facility] Work Phone: 12-16-2021 22:58-0400 Body temperature 98.6 [degF] Dr. Francy Boss Work Phone: [facility] Work Phone: 12-16-2021 22:58-0400 Body weight 77.[address] Francy Boss Work Phone: [facility] Work Phone: 12-16-2021 22:58-0400 Diastolic blood pressure 102 mm[Hg] Dr. Francy Boss Work Phone: [facility] Work Phone: 12-16-2021 22:58-0400 Systolic blood pressure 175 mm[Hg] Dr. Francy Boss Work Phone: [facility] Work Phone: 12-05-2021 00:07-0400 Diastolic blood pressure 84 mm[Hg] Dr. Francy Boss Work Phone: [facility] Work Phone: 12-05-2021 00:07-0400 Heart rate 79 /min Dr. Francy Boss Work Phone: [facility] Work Phone: 12-05-2021 00:07-0400 Respiratory rate 15 /min Dr. Francy Boss Work Phone: [facility] Work Phone: 12-05-2021 00:07-0400 SaO2% (BldA) [Mass fraction] 98 % Dr. Francy Boss Work Phone: [facility] Work Phone: 12-05-2021 00:07-0400 Systolic blood pressure 132 mm[Hg] Dr. Francy Boss Work Phone: [facility] Work Phone: 12-04-2021 23:23-0400 Body height 162.[address] Francy Boss Work Phone: [facility] Work Phone: 12-04-2021 23:23-0400 Body mass index (BMI) [Ratio] 29.2 kg/m2 Dr. Francy Boss Work Phone: [facility] Work Phone: 12-04-2021 23:23-0400 Body temperature 96.4 [degF] Dr. Francy Boss Work Phone: [facility] Work Phone: 12-04-2021 23:23-0400 Body weight 77.[address] Francy Boss Work Phone: [facility] Work Phone: 11-20-2021 10:48-0400 Body mass index (BMI) [Ratio] 28.3 kg/m2 Dr. Francy Boss Work Phone: [facility] Work Phone: 11-20-2021 10:48-0400 Body temperature 97.1 [degF] Dr. Francy Boss Work Phone: [facility] Work Phone: 11-20-2021 10:48-0400 Body weight 74.[address] Francy Boss Work Phone: [facility] Work Phone: 11-20-2021 10:48-0400 Diastolic blood pressure 94 mm[Hg] Dr. Francy Boss Work Phone: [facility] Work Phone: 11-20-2021 10:48-0400 Heart rate 78 /min Dr. Francy Boss Work Phone: [facility] Work Phone: 11-20-2021 10:48-0400 Respiratory rate 16 /min Dr. Francy Boss Work Phone: [facility] Work Phone: 11-20-2021 10:48-0400 SaO2% (BldA) [Mass fraction] 99 % Dr. Francy Boss Work Phone: [facility] Work Phone: 11-20-2021 10:48-0400 Systolic blood pressure 140 mm[Hg] Dr. Francy Boss Work Phone: [facility] Work Phone: 10-09-2021 09:27-0400 Body mass index (BMI) [Ratio] 30 kg/m2 Dr. Francy Boss Work Phone: [facility] Work Phone: 10-09-2021 09:27-0400 Body temperature 97.9 [degF] Dr. Francy Boss Work Phone: [facility] Work Phone: 10-09-2021 09:27-0400 Body weight 79.[address] Francy Boss Work Phone: [facility] Work Phone: 10-09-2021 09:27-0400 Diastolic blood pressure 80 mm[Hg] Dr. Francy Boss Work Phone: [facility] Work Phone: 10-09-2021 09:27-0400 Heart rate 108 /min Dr. Francy Boss Work Phone: [facility] Work Phone: 10-09-2021 09:27-0400 Respiratory rate 16 /min Dr. Francy Boss Work Phone: [facility] Work Phone: 10-09-2021 09:27-0400 SaO2% (BldA) [Mass fraction] 98 % Dr. Francy Boss Work Phone: [facility] Work Phone: 10-09-2021 09:27-0400 Systolic blood pressure 140 mm[Hg] Dr. Francy Boss Work Phone: [facility] Work Phone: 10-04-2021 11:16-0400 Body weight 77.56 kg Sherif Woodruff MD Work Phone: [facility] 10-04-2021 11:16-0400 Diastolic blood pressure 80 mm[Hg] Sherif Woodruff MD Work Phone: [facility] 10-04-2021 11:16-0400 Heart rate 103 /min Sherif Woodruff MD Work Phone: [facility] 10-04-2021 11:16-0400 Respiratory rate 18 /min Sherif Woodruff MD Work Phone: [facility] 10-04-2021 11:16-0400 SaO2% (BldA) [Mass fraction] 97 % Sherif Woodruff MD Work Phone: [facility] 10-04-2021 11:16-0400 Systolic blood pressure 108 mm[Hg] Sherif Woodruff MD Work Phone: [facility] 10-04-2021 10:55-0400 Body temperature 97.59 [degF] Cheryl Praisler-Wood GRAPHICS MANAGER.PHOTOGRAPHIC LABORATORY SUPERVISOR Work Phone: [facility] 10-04-2021 10:55-0400 Body weight 77.56 kg Cheryl Praisler-Wood GRAPHICS MANAGER.PHOTOGRAPHIC LABORATORY SUPERVISOR Work Phone: [facility] 10-04-2021 10:55-0400 Diastolic blood pressure 70 mm[Hg] Cheryl Praisler-Wood GRAPHICS MANAGER.PHOTOGRAPHIC LABORATORY SUPERVISOR Work Phone: [facility] 10-04-2021 10:55-0400 Heart rate 100 /min Cheryl Praisler-Wood GRAPHICS MANAGER.PHOTOGRAPHIC LABORATORY SUPERVISOR Work Phone: [facility] 10-04-2021 10:55-0400 Respiratory rate 18 /min Cheryl Praisler-Wood GRAPHICS MANAGER.PHOTOGRAPHIC LABORATORY SUPERVISOR Work Phone: [facility] 10-04-2021 10:55-0400 SaO2% (BldA) [Mass fraction] 99 % Cheryl Praisler-Wood GRAPHICS MANAGER.PHOTOGRAPHIC LABORATORY SUPERVISOR Work Phone: [facility] 10-04-2021 10:55-0400 Systolic blood pressure 120 mm[Hg] Cheryl Praisler-Wood GRAPHICS MANAGER.PHOTOGRAPHIC LABORATORY SUPERVISOR Work Phone: [facility] 09-27-2021 09:13-0400 Body temperature 97.3 [degF] Cheryl Praisler-Wood GRAPHICS MANAGER.PHOTOGRAPHIC LABORATORY SUPERVISOR Work Phone: [facility] 09-27-2021 09:13-0400 Body weight 78.29 kg Cheryl Praisler-Wood GRAPHICS MANAGER.PHOTOGRAPHIC LABORATORY SUPERVISOR Work Phone: [facility] 09-27-2021 09:13-0400 Diastolic blood pressure 76 mm[Hg] Cheryl Praisler-Wood GRAPHICS MANAGER.PHOTOGRAPHIC LABORATORY SUPERVISOR Work Phone: [facility] 09-27-2021 09:13-0400 Heart rate 81 /min Cheryl Praisler-Wood GRAPHICS MANAGER.PHOTOGRAPHIC LABORATORY SUPERVISOR Work Phone: [facility] 09-27-2021 09:13-0400 Respiratory rate 16 /min Cheryl Praisler-Wood GRAPHICS MANAGER.PHOTOGRAPHIC LABORATORY SUPERVISOR Work Phone: [facility] 09-27-2021 09:13-0400 SaO2% (BldA) [Mass fraction] 97 % Cheryl Praisler-Wood GRAPHICS MANAGER.PHOTOGRAPHIC LABORATORY SUPERVISOR Work Phone: [facility] 09-27-2021 09:13-0400 Systolic blood pressure 122 mm[Hg] Cheryl Praisler-Jasen GRAPHICS MANAGER.[facility] Work Phone: [facility] 09-17-2021 08:07-0400 Body mass index (BMI) [Ratio] 28.7 kg/m2 Dr. Francy Boss Work Phone: [facility] Work Phone: 09-17-2021 08:07-0400 Body temperature 97.6 [degF] Dr. Francy Boss Work Phone: [facility] Work Phone: 09-17-2021 08:07-0400 Body weight 75.[address] Francy Boss Work Phone: [facility] Work Phone: 09-17-2021 08:07-0400 Diastolic blood pressure 60 mm[Hg] Dr. Francy Boss Work Phone: [facility] Work Phone: 09-17-2021 08:07-0400 Heart rate 100 /min Dr. Francy Boss Work Phone: [facility] Work Phone: 09-17-2021 08:07-0400 Respiratory rate 16 /min Dr. Francy Boss Work Phone: [facility] Work Phone: 09-17-2021 08:07-0400 SaO2% (BldA) [Mass fraction] 97 % Dr. Francy Boss Work Phone: [facility] Work Phone: 09-17-2021 08:07-0400 Systolic blood pressure 122 mm[Hg] Dr. Francy Boss Work Phone: [facility] Work Phone: 09-17-2021 08:07-0400 Body height 162.[address] Francy Boss Work Phone: [facility] Work Phone: 09-17-2021 08:07-0400 Body mass index (BMI) [Ratio] 28.7 kg/m2 Dr. Francy Boss Work Phone: [facility] Work Phone: 09-17-2021 08:07-0400 Body temperature 97.6 [degF] Dr. Francy Boss Work Phone: [facility] Work Phone: 09-17-2021 08:07-0400 Body weight 75.[address] Francy Boss Work Phone: [facility] Work Phone: 09-17-2021 08:07-0400 Diastolic blood pressure 60 mm[Hg] Dr. Francy Boss Work Phone: [facility] Work Phone: 09-17-2021 08:07-0400 Heart rate 100 /min Dr. Francy Boss Work Phone: [facility] Work Phone: 09-17-2021 08:07-0400 Respiratory rate 16 /min Dr. Francy Boss Work Phone: [facility] Work Phone: 09-17-2021 08:07-0400 SaO2% (BldA) [Mass fraction] 97 % Dr. Francy Boss Work Phone: [facility] Work Phone: 09-17-2021 08:07-0400 Systolic blood pressure 122 mm[Hg] Dr. Francy Boss Work Phone: [facility] Work Phone: 09-09-2021 11:40-0400 Body height 162.56 cm [facility] Work Phone: 09-09-2021 11:40-0400 Body mass index (BMI) [Ratio] 29.2 kg/m2 [facility] Work Phone: 09-09-2021 11:40-0400 Body temperature 97.7 [degF] [facility] Work Phone: 09-09-2021 11:40-0400 Body weight 77.11 kg [facility] Work Phone: 09-09-2021 11:40-0400 Diastolic blood pressure 88 mm[Hg] [facility] Work Phone: 09-09-2021 11:40-0400 Heart rate 71 /min [facility] Work Phone: 09-09-2021 11:40-0400 Respiratory rate 18 /min [facility] Work Phone: 09-09-2021 11:40-0400 SaO2% (BldA) [Mass fraction] 97 % [facility] Work Phone: 09-09-2021 11:40-0400 Systolic blood pressure 154 mm[Hg] [facility] Work Phone: 09-04-2021 08:58-0400 Body temperature 97.5 [degF] Kimmie Athy PA-C Work Phone: [facility] 09-04-2021 08:58-0400 Body weight 78.38 kg Kimmie Athy PA-C Work Phone: [facility] 09-04-2021 08:58-0400 Diastolic blood pressure 88 mm[Hg] Kimmie Athy PA-C Work Phone: [facility] 09-04-2021 08:58-0400 Heart rate 80 /min Kimmie Athy PA-C Work Phone: [facility] 09-04-2021 08:58-0400 Respiratory rate 18 /min Kimmie Athy PA-C Work Phone: [facility] 09-04-2021 08:58-0400 SaO2% (BldA) [Mass fraction] 99 % Kimmie Athy PA-C Work Phone: [facility] 09-04-2021 08:58-0400 Systolic blood pressure 128 mm[Hg] Kimmie Athy PA-C Work Phone: [facility] 08-26-2021 10:53-0400 Body temperature 97.2 [degF] Sabina Carmelo GRAPHICS MANAGER.PHOTOGRAPHIC LABORATORY SUPERVISOR Work Phone: [facility] 08-26-2021 10:53-0400 Body weight 79.83 kg Sabina Carmelo GRAPHICS MANAGER.PHOTOGRAPHIC LABORATORY SUPERVISOR Work Phone: [facility] 08-26-2021 10:53-0400 Diastolic blood pressure 72 mm[Hg] Sabina Carmelo GRAPHICS MANAGER.PHOTOGRAPHIC LABORATORY SUPERVISOR Work Phone: [facility] 08-26-2021 10:53-0400 Heart rate 108 /min Sabina Carmelo GRAPHICS MANAGER.PHOTOGRAPHIC LABORATORY SUPERVISOR Work Phone: [facility] 08-26-2021 10:53-0400 Respiratory rate 16 /min Sabina Carmelo GRAPHICS MANAGER.PHOTOGRAPHIC LABORATORY SUPERVISOR Work Phone: [facility] 08-26-2021 10:53-0400 SaO2% (BldA) [Mass fraction] 98 % Sabina Rhodes GRAPHICS MANAGER.PHOTOGRAPHIC LABORATORY SUPERVISOR Work Phone: [facility] 08-26-2021 10:53-0400 Systolic blood pressure 124 mm[Hg] Sabina Rhodes GRAPHICS MANAGER.PHOTOGRAPHIC LABORATORY SUPERVISOR Work Phone: [facility] Encounters Encounter Date Encounter Type Care Provider Facility Start: 11-24-2024 End: 11-24-2024 ambulatory [facility] Facility:[facility] Start: 11-24-2024 End: 11-24-2024 Office outpatient visit 15 minutes [facility] GRAPHICS MANAGER.PHOTOGRAPHIC LABORATORY SUPERVISOR Work Phone: [facility] Comment on above: Right elbow pain (Pr imary Dx) Start: 11-23-2024 End: 11-23-[address] Francy Boss MD -[facility] Work Phone: Start: 11-23-2024 End: 11-23-[address] Francy Boss MD Work Phone: -[facility] Start: 10-20-2024 End: 10-20-[address] Ricardo Moran MD [facility] Work Phone: Start: 10-20-2024 End: 10-20-[address] Francy Boss MD Work Phone: [facility] Work Phone: Start: 09-06-2024 ambulatory [facility] Facility :[facility] Start: 09-06-[address] Ricardo krishnan MD -Physical Therapy Work Phone: Start: 09-01-2024 End: 09-01-[address] Ricardo Moran MD [facility] Work Phone: Start: 09-01-2024 End: 09-01-2024 ambulatory [facility] Facility[facility] Start: 08-04-2024 End: 08-04-[address] Ricardo Moran MD -[facility] Work Phone: Start: 08-04-2024 End: 08-04-2024 ambulatory [facility] Facility:[facility] Start: 08-01-2024 End: 08-01-[address] Francy Boss MD -[facility] Work Phone: Start: 08-01-2024 End: 08-01-2024 [facility] Start: 07-25-2024 End: 07-25-2024 ambulatory [facility] Facility:[facility] Start: 07-25-2024 End: 07-25-[address] Ricardo Moran MD -[facility] Work Phone: Start: 07-22-2024 ambulatory Ricardo Moran Facility :[facility] Start: 07-22-2024 Non-patient / Non-visit Dr. Ricardo rodgers MD -[facility] Start: 07-22-2024 End: 07-22-2024 Admission to same day surgery center Dr. Ricardo Moran MD -[facility] Start: 07-22-2024 End: 07-22-[address] Francy Boss MD Work Phone: [facility] Work Phone: Start: 06-02-2024 End: 06-02-[address] Ricardo Moran MD -[facility] Work Phone: Start: 06-02-2024 End: 06-02-2024 ambulatory Ricardo Moran Facility:[facility] Start: 05-24-2024 End: 05-24-[address] Ricardo Moran MD -[facility] Work Phone: Start: 05-24-2024 End: 05-24-2024 ambulatory Ricardo Moran Facility:[facility] Start: 05-02-2024 End: 05-02-[address] Francy Boss MD -[facility] Work Phone: Start: 05-02-2024 End: 05-02-2024 [facility] Start: 04-06-2024 End: 04-06-[address] Ricardo Moran MD -[facility] Work Phone: Start: 04-06-2024 End: 04-06-2024 ambulatory Ricardo Mollison Facility:[facility] Start: 04-05-2024 End: 04-05-2024 ambulatory Ricardo Mollison Facility:[facility] Start: 04-05-2024 End: 04-05-[address] Ricardo Moran MD -[facility] Work Phone: Start: 03-16-2024 ambulatory Ricardo Mollison Facility :[facility] Start: 03-16-2024 End: 03-16-2024 ambulatory Ricardo Mollison Facility:[facility] Start: 02-26-2024 ambulatory Ricardo Mollison Facility :[facility] Start: 02-11-2024 End: 02-11-2024 ambulatory Ricardo Mollison Facility:[facility] Start: 02-09-2024 End: 02-09-2024 ambulatory [facility] Facility:[facility] Start: 01-21-2024 End: 01-21-2024 ambulatory Ricardo Mollison Facility:[facility] Start: 12-22-2023 End: 12-22-2023 ambulatory Ricardo Mollison Facility:[facility] Start: 12-16-2023 End: 12-16-2023 [facility]ulatory [facility] Start: 12-15-2023 End: 12-15-2023 Emergency department patient visit [facility] Facility:[facility] Start: 08-20-2023 End: 08-20-2023 Emergency department patient visit Dr. Francy Boss Work Phone: [facility] Work Phone: Start: 08-14-2023 End: 08-14-2023 Patient encounter procedure Kimmie Smith PA-C Work Phone: [facility] Comment on above: Acute recurrent pans inusitis (Primary Dx) Start: 08-03-2023 End: 08-03-2023 Patient encounter procedure Katrin Stephen APRN.CNP Work Phone: [facility] Comment on above: Rhinosinusitis (Prim elo Dx) Start: 03-30-2023 End: 03-30-2023 Patient encounter procedure Kimmie Smith PA-C Work Phone: [facility] Comment on above: Suspected COVID-19 v irus infection (Primary Dx) Start: 03-25-2023 End: 03-25-2023 Patient encounter procedure Melania LOTT Work Phone: [facility] Comment on above: Bacterial sinusitis (Primary Dx) Start: 01-28-2023 End: 01-28-2023 Emergency department patient visit [facility] Work Phone: Start: 12-29-2022 End: 12-29-2022 Patient encounter procedure Cheryl Desir APRN.PHOTOGRAPHIC LABORATORY SUPERVISOR Work Phone: [facility] Comment on above: Sinobronchitis (Prim elo Dx) Start: 12-25-2022 End: 12-25-2022 Patient encounter procedure Leroy Yates APRN.PHOTOGRAPHIC LABORATORY SUPERVISOR Work Phone: [facility] Comment on above: Sinobronchitis (Prim elo Dx) Start: 12-16-2022 End: 12-16-2022 Patient encounter procedure Cheryl Desir APRN.PHOTOGRAPHIC LABORATORY SUPERVISOR Work Phone: [facility] Comment on above: Nasal congestion (Pr imary Dx) Start: 09-05-2022 Telephone encounter Ramón Reyes MD Work Phone: [facility] Comment on above: Results Start: 09-04-2022 End: 09-04-2022 Patient encounter procedure Katrin Stephen APRN.PHOTOGRAPHIC LABORATORY SUPERVISOR Work Phone: [facility] Comment on above: URI, acute (Primary Dx) Start: 08-04-2022 End: 08-04-2022 Patient encounter procedure Melania LOTT Work Phone: [facility] Comment on above: Chronic hand pain, r ight (Primary Dx) Start: 07-09-2022 End: 07-09-2022 Patient encounter procedure Leroy Yates APRN.PHOTOGRAPHIC LABORATORY SUPERVISOR Work Phone: [facility] Comment on above: Fatigue, unspecified type (Primary Dx) Start: 07-08-2022 End: 07-08-2022 Patient encounter procedure Leroy Yates APRN.PHOTOGRAPHIC LABORATORY SUPERVISOR Work Phone: [facility] Comment on above: Dizzy (Primary Dx) Start: 06-13-2022 End: 06-13-2022 Emergency department [facility] Start: 05-28-2022 End: 05-28-2022 Patient encounter procedure Leroy Yates APRN.PHOTOGRAPHIC LABORATORY SUPERVISOR Work Phone: [facility] Comment on above: Acute otitis externa of left ear, unspecified type (Primary Dx) Start: 05-14-2022 End: 05-14-[address] Francy Boss Work Phone: [facility] Start: 03-12-2022 End: 03-12-[address] Francy Boss Work Phone: [facility] Start: 03-03-2022 End: 03-03-[address] Francy Boss Work Phone: [facility] Start: 02-25-2022 End: 02-25-2022 Patient encounter procedure Ktarin Stephen APRN.PHOTOGRAPHIC LABORATORY SUPERVISOR Work Phone: [facility] Comment on above: Pain, dental (Primar y Dx) Start: 12-30-2021 End: 12-30-2021 Emergency department patient [facility] Start: 12-26-2021 End: 12-26-2021 Patient encounter procedure Ramón Norton MD Work Phone: [facility] Comment on above: Headache, unspecifie d headache type (Primary Dx); Dizziness Start: 12-16-2021 End: 12-16-2021 Emergency department patient [facility] Start: 12-04-2021 End: 12-05-2021 Emergency department patient [facility] Start: 11-20-2021 End: 11-20-[address] Francy Boss Work Phone: [facility] Start: 10-14-[address] Brenna [facility] Start: 10-09-2021 End: 10-09-[address] Francy Boss Work Phone: [facility] Start: 10-04-2021 End: 10-04-2021 Patient encounter procedure Sherif Woodruff MD Work Phone: [facility] [place] Comment on above: Tendonitis of elbow, right (Primary Dx) APPOINTMENT CANCELLE D (Primary Dx) Start: 09-27-2021 End: 09-27-2021 Patient encounter procedure Cheryl Desir APRN.CNP Work Phone: [facility] Comment on above: Tendonitis of elbow, right (Primary Dx) Start: 09-19-[address] [facility] Start: 09-17-2021 End: 09-17-[address] Francy Boss Work Phone: [facility] Start: 09-09-2021 End: 09-09-2021 [facility] Start: 09-04-2021 End: 09-04-2021 Patient encounter procedure Kimmie R Sarah BOYD Work Phone: [facility] Comment on above: Forearm tendonitis ( Primary Dx) Start: 08-27-2021 Telephone encounter Katrin Stephen APRN.PHOTOGRAPHIC LABORATORY SUPERVISOR Work Phone: [facility] Comment on above: Results Start: 08-26-2021 End: 08-26-2021 Patient encounter procedure Sabina Rhodes PREMA.PHOTOGRAPHIC LABORATORY SUPERVISOR Work Phone: [facility] Comment on above: Viral illness (Prima ry Dx); Suspected COVID-19 virus infection Start: 07-25-2020 End: 07-25-2020 Subsequent hospital visit by physician [facility] Work Phone: Radiology Comment on above: Acute left-sided low back pain without sciatica [M54.5] Start: 06-28-2020 End: 06-28-2020 Subsequent hospital visit by physician [facility] Work Phone: Radiology Comment on above: Hand pain, right [M7 9.641] Start: 07-14-2017 End: 07-14-2017 Emergency department patient visit [facility] IGLESIAS Facility:[facility] Procedures Date Procedure Procedure Detail Performing Clinician Start: 07-22-[address] Francy Boss MD Work Phone: Start: 05-24-2024 MRI of joint of lowe r extremity Dr. Francy Boss MD Work Phone: Start: 01-28-2023 X-ray of both feet Start: 06-13-2022 X-ray of both feet Dr. Francy Boss Work Phone: Start: 09-09-2021 Plain x-ray of elbow Start: 07-25-2020 Radex spine lumbosac ral 2/3 views Sherif Woodruff MD Work Phone: Start: 06-28-2020 Radex hand minimum 3 views Varinder Powell APRN.PHOTOGRAPHIC LABORATORY SUPERVISOR Work Phone: Viral antigen assay Dr. Mala Boss Work Phone: Plan of Treatment Date Care Activity Detail Author Start: 12-17-2031 Urine microalbumin profile DTaP,Tdap,Td Vaccine (2 - Td or Tdap) [facility] Start: 01-09-2025 Influenza vaccination Influenza Vacc ine (#1) [facility] Start: 09-01-[address] [facility] Work Phone: Start: 07-25-[address] [facility] Work Phone: Start: 07-22-2024 Anesthesia open teno alise elbow to shoulder ANESTH UPPR ARM TENDON SURG [facility] Start: 07-22-2024 Tnot elbow lateral/m edial debride open tdn rpr REPAIR ELBOW TEETEE/ATTCH OPEN [facility] Start: 07-22-2024 Patient discharge [facility] Start: 07-22-2024 Application of ice collar, cap or bag [facility] Start: 07-22-2024 Assessment of risk o f venous thromboembolism [facility] Start: 07-22-2024 Catheterization of vein [facility] Start: 07-22-2024 Deep breathing and coughing exercises [facility] Start: 07-22-2024 Elevation of affecte d extremity [facility] Start: 07-22-2024 Following clinical pathway protocol [facility] Start: 07-22-2024 Incentive spirometry [facility] Start: 07-22-2024 Introduction of urin elo catheter [facility] Start: 07-22-2024 Patient education [facility] Start: 07-22-2024 Provision of activit y privileges [facility] Start: 07-22-2024 Taking patient vital signs [facility] Start: 07-22-2024 Vital signs measurements [facility] Start: 07-22-2024 End: 07-22-2024 [facility] Start: 07-22-2024 Fluoroscopic guidance O.R. Fluoro fo r C-Arm [facility] Start: 07-22-2024 Plain x-ray of elbow Elbow 2 Views W [facility] Start: 07-22-2024 Medication education [facility] Start: 01-10-2024 Covid-19 Vaccine ( season) Covid-19 Vaccine ( season) [facility] Start: 01-10-2024 Influenza vaccination C [facility] Start: 08-20-2023 [facility] Start: 05-11-2023 Behavioral Health Screening Behavioral Health Screening [facility] Start: 05-11-2023 Depression Assessment [facility] Start: 01-09-2023 Covid-19 Vaccine ( season) Covid-19 Vaccine ( season) [facility] Start: 01-09-2023 Influenza vaccination C [facility] Start: 09-04-2022 End: 09-18-2022 Influenza virus A and B RNA and SARS-CoV-2 (COVID-19) N gene panel - Respiratory specimen by MIKE with probe detection [facility] Work Phone: Comment on above: Expected: 09/04/2022 , Expires: 09/18/2022 Start: 05-11-2022 DEPRESSION ASSESSMENT DEPRESSION ASS [facility] Start: 01-09-2022 Influenza vaccination C [facility] Start: 12-30-2021 [facility] Work Phone: Start: 12-04-2021 [facility] Work Phone: Start: 09-17-[address] [facility] Work Phone: Start: 08-26-2021 End: 09-09-2021 Influenza virus A and B RNA and SARS-CoV-2 (COVID-19) N gene panel - Respiratory specimen by MIKE with probe detection [facility] Work Phone: Comment on above: Expected: 08/26/2021 , Expires: 09/09/2021 Start: 05-11-2021 DEPRESSION ASSESSMENT DEPRESSION ASS ESSMENT [facility] Start: 11-04-2018 Lipid 1996 panel - S jennifer or Plasma Lipid Screening [facility] Start: 11-04-2018 Lipid panel Lipid Screening [facility] Start: 11-04-2018 LIPID SCREEN LIPID SCREEN [facility] Start: 11-04-2002 Hepatitis B Vaccine (1 of 3 - 19+ 3-dose series) Hepatitis B Vaccine (1 of 3 - 19+ 3-dose series) [facility] Start: 11-04-2002 Urine microalbumin profile DTAP,TDAP,TD (1 - Tdap) [facility] Start: 11-04-2001 Anxiety Screening Anxiety Screening [facility] Start: 11-04-2001 Depression Screening Depression Scre ening [facility] Start: 11-04-2001 HEPATITIS C SCREENING HEPATITIS C [facility] Start: 11-04-2001 Hepatitis C screening Hepatitis C [facility] Start: 11-04-2001 HIV SCREENING HIV SCREENING [facility] Start: 11-04-2001 HIV screening HIV Screening [facility] Start: 1995 Adult depression screening assessment DEPRESSION SCREENING [facility] Start: 11-04-1988 COVID-19 VACCINE (#1) COVID-19 VACCI NE (#1) [facility] Start: 11-04-1988 COVID-19 VACCINE (1) COVID-19 VACCIN E (1) [facility] Start: 05-06-1984 COVID-19 VACCINE (#1) COVID-19 VACCI NE (#1) [facility] Start: 1983 HEPATITIS B (1 of 3 - 3-dose series) HEPATITIS B (1 of 3 - 3-dose series) [facility] Start: 1983 Hepatitis B Vaccine (1 of 3 - 3-dose series) Hepatitis B Vaccine (1 of 3 - 3-dose series) [facility] CBC W Auto Different ial panel - Blood [facility] Comprehensive metabo lic 1999 panel - Serum or Plasma [facility] COVID & INFLUENZA A/ B & RSV NAAT, ROUTINE COVID & INFLUENZA A/B & RSV NAAT, ROUTINE Microbiology Routine Suspected COVID-19 virus infection Ordered: 03/30/2023 [facility] Work Phone: Comment on above: Ordered: 03/30/2023 Lipid 1996 panel - S jennifer or Plasma [facility] Patient Education [facility] Work Phone: Patient referral [facility] Work Phone: Immunizations Immunization Date Immunization Notes Care Provider Fa perlaty 12-16-2021 tetanus toxoid, redu michelle diphtheria toxoid, and acellular pertussis vaccine, adsorbed Dr. Francy Boss Work Phone: [facility] Payers Date Payer Category Payer Medicaid [id number] 2020 Medicaid [employer]ICA[employer] [id number] [address] [address] [address] [place] [address] Medicaid [id number] 2020 Medicaid [id number] 2020 Unknown [employer] BLUE CARD PPO OOS [id number] 2020-2020 [address] [place] [address] PPO [id number] 2017 Self-pay Unknown [id number] Unknown [id number] Unknown [facility] [id number] Unknown [id number] Unknown [id number] [id number] Unknown [id number] [id number] Unknown [id number] 2.840.1.900151.3.579.2.462 Unknown [id number] 2.0.1.328618.3.579.2.462 Unknown [id number] 2.16.840.1.518873.3.579.2.462 Unknown [id number] 2.16.840.1.635404.3.579.2.462 Unknown [id number] 2.16.840.1.747364.3.579.2.462 Unknown [id number] 2.16.840.1.825093.3.579.2.462 Unknown [id number] 2.16.840.1.102625.3.579.2.462 Unknown [id number] 2.16.840.1.476102.3.579.2.462 Unknown [id number] 2.16.840.1.889421.3.579.2.462 Unknown [id number] 2.16.840.1.263903.3.579.2.462 Unknown [id number] 2.16840.1.031361.3.579.2.462 Unknown [id number] 2.16.840.1.677553.3.579.2.462 Unknown [id number] 2.16840.1.598696.3.579.2.462 Unknown [id number] 2.16.840.1.113575.3.579.2.462 Unknown [id number] 2.16.840.1.230268.3.579.2.462 Unknown [id number] 2.16.840.1.347778.3.579.2.462 Unknown [id number] 2.16.840.1.633559.3.579.2.462 Unknown [id number] 2.16.840.1.289448.3.579.2.462 Unknown [id number] 2.16.840.1.963308.3.579.2.462 Unknown [id number] 2.16.840.1.460847.3.579.2.462 Unknown [id number] 2.16.840.1.952355.3.579.2.462 Social History Date Type Detail Facility Start: 07-31-2017 End: 02-25-2022 Tobacco smoking status NHIS Ex-smoker [facility] History of tobacco use Cigarette Smoker [facility] Start: 07-31-2017 End: 02-25-2022 Tobacco use and exposure Smokeless tobacco non-user [facility] Start: 08-26-2021 End: 11-24-2024 Alcohol intake Current drinker of alcohol (finding) [facility] Start: 07-31-2017 History SDOH Alcohol Comment wine occasionally [facility] Start: 1985 Sex Assigned At Not on file [facility] Start: 05-29-2020 End: 02-25-2022 Exposure to SARS-CoV-2 (event) Not sure [facility] Work Phone: Start: 09-09-2021 End: 08-20-2023 Tobacco smoking status MTIS Unknown if ever smoked [facility] Start: 08-14-2020 None [facility] Start: 08-14-2020 Alone [facility] Start: 10-09-2020 Non-smoker [facility] Start: 1985 Sex Assigned At Male W [facility] History of tobacco use Current smoker [facility] Start: 04-18-2020 End: 12-16-2022 History of Social function [facility] Start: 04-18-2020 End: 12-16-2022 Tobacco use panel [facility] National Score (1-100), lower number is lower risk Not on file [facility] Start: 07-22-2024 Sex Male (finding) [facility] Medical Equipment Procedure Code Equipment Code Equipment Origin al Text Equipment Identifier Dates Transposition, nerve, ulnar ([id number]) Tendon/ligament bone anchor, non-bioabsorbable ([id number] [facility] Start: 07-22-2024 Goals Date Patient Goal Desired Activity /State Functional Status Date Assessment Result Facility 08-31-2014 Are you deaf, or do you have serious difficulty hearing No 08/31/2014 1:31 PM EDT Janie Merchant LPN No [facility] 08-31-2014 Are you blind, or do you have serious difficulty seeing, even when wearing glasses No 08/31/2014 1:31 PM EDT Janie Merchant LPN No [facility] 08-31-2014 Do you have serious difficulty walking or climbing stairs No 08/31/2014 1:31 PM EDT Janie Merchnat LPN No [facility] 08-31-2014 Do you have difficul ty dressing or bathing No 08/31/2014 1:31 PM EDT Janie Merchant LPN No [facility] 08-31-2014 Because of a physica l, mental, or emotional condition, do you have difficulty doing errands alone such as visiting a physician's office or shopping No 08/31/2014 1:31 PM EDT Janie Merchant LPN No [facility] Mental Status Date Assessment Result Facility 07-22-2024 Cognitive function Level Of Cons ciousness Sedated [facility] Work Phone: 07-22-2024 Cognitive function Voice/Name [facility] Work Phone: 12-04-2021 Cognitive function Level Of Cons ciousness Awake;Alert;Appropriate;Fol lows Commands [facility] Work Phone: 08-31-2014 Because of a physica l, mental, or emotional condition, do you have serious difficulty concentrating, remembering, or making decisions No 08/31/2014 1:31 PM EDT Janie Merchant LPN No [facility] Clinical Notes 06-28-2020 to 11-24-2024 Varinder Powell APRN.PHOTOGRAPHIC LABORATORY SUPERVISOR - 11/24/2024 5:17 PM EDT Note Date & Type Note Facility 11-24-2024 Note HNO ID: [id number] Author: VARINDER POWELL APRN.PHOTOGRAPHIC LABORATORY SUPERVISOR Service: ? Author Type: Nurse Practitioner Type: Progress Notes Filed: 11/24/2024 17:26 Note Text: Subjective HPI 39-year-old male presents urgent care chief complaint right elbow pain. Patient states had surgery 3 months ago. Recently returned back to work. States feeling he overdid it at work yesterday. Was unable to return to work today. Does need a work note. Is seeing pain management next week. Followed up with PCP yesterday. Care plan was established. No other concerns. No new numbness or tingling. No weakness. No fevers. No trauma. Overall feels well. Past medical history prescription medications allergies reviewed .Patient presents with: Pain (Elbow Pain): R elbow pain x this AM, has history with recent surgery, has been back to work for 1 month PAST MEDICAL HISTORY Diagnosis Date Asthma (HCC) Contracture of hand joint PAST SURGICAL HISTORY Procedure Laterality Date ABDOMINAL SURGERY HX ORIF CARPOMETACARPAL DISLOC,COMPLX/TURNER ALLERGIES Patient has no known allergies. MEDICATIONS meloxicam (MOBIC) 7.5 mg tablet fluticasone (FLONASE) 50 mcg/actuation nasal spray Use 2 Sprays in each nostril once daily. Rinse mouth after use. (Patient not taking: Reported on 11/24/2024) ofloxacin (FLOXIN) 0.3 % otic solution Use 10 Drops in the left ear once daily. (Patient not taking: Reported on 09/04/2022) amLODIPine (NORVASC) 5 mg tablet Take 5 mg by mouth once daily. ibuprofen (MOTRIN) 600 mg tablet Take 600 mg by mouth every 6 hours as needed. (Patient not taking: Reported on 03/30/2023) cyclobenzaprine (FLEXERIL) 10 mg tablet Take 1 tablet by mouth three times daily as needed for muscle spasm. (Patient not taking: Reported on 03/30/2023) QUEtiapine (SEROQUEL) 25 mg tablet Take 25 mg by mouth twice daily. FAMILY HISTORY Problem Relation Age of Onset Asthma Mother other (fibromyalgia) Mother Coronary Artery Disease Father Miscarriages / Stillbirths Sister Social History Tobacco Use Smoking status: Former Types: Cigarettes Smokeless tobacco: Never Substance Use Topics Alcohol use: Yes Comment: wine occasionally Drug use: No BP 155/86 Pulse 85 Temp 36.9 ?C (98.5 ?F) Resp 18 Wt 78.4 kg (172 lb 13.5 oz) SpO2 97% BMI 29.67 kg/m? Review of Systems Constitutional: Negative for chills, fever and malaise/fatigue. Musculoskeletal: Positive for joint pain. Negative for back pain, falls, myalgias and neck pain. Neurological: Negative for dizziness, loss of consciousness, weakness and headaches. Objective Physical Exam Constitutional: General: He is not in acute distress. Appearance: He is not toxic-appearing. HENT: Head: Normocephalic. Nose: Nose normal. Eyes: Pupils: Pupils are equal, round, and reactive to light. Cardiovascular: Rate and Rhythm: Normal rate. Pulmonary: Effort: Pulmonary effort is normal. No respiratory distress. Musculoskeletal: Cervical back: Normal range of motion. Comments: Surgical scar noted on right elbow. Neurovascular intact. No erythema edema Skin: General: Skin is warm and dry. Neurological: General: No focal deficit present. Mental Status: He is alert. ASSESSMENT/PLAN: 1. Right elbow pain - ICD9: 719.42, ICD10: M25.521 Diagnosis right elbow pain. No evidence of infection. Instructed patient to keep pain management appointment as well as orthopedic appointment. Patient was educated on supportive therapies. Patient will follow up with primary care provider as needed. Patient was instructed to immediately proceed to emergency room for any new, worsening, or symptoms lasting longer than anticipated. The patient's clinical presentation is otherwise unremarkable at this time. Based on exam and clinical finding, the patient is stable for discharge. Plan of care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 Supination 0-90 and Pronation 0-80 Test: Yes TTP Medial Epicondyle and No TTP Lateral Epicondyle Sensation: Radial: I, Ulnar: I and Median: I Motor: Elbow Extension: 4, Elbow Flexion: 4, EPL: 4, FDP-2: 4 and 1st Dorsal Interosseous: 4 Supplemental Info [facility] Imaging Services [address] [place] [id number] Upper Ext Joint Only(Routine) MR#: [id number] Acct: [id number] Name: ECHO HYATT Rep #: [id number] : 1985 M 38 From: Vamshi Grove MD PCP: Dr. Francy Boss MD Status: REG CLI Study: Upper Ext Joint Only(Routine) Date of Exam: 05/24/24 Exam# [id number] Ordering Dr: Ricardo Moran MD STUDY: MRI RIGHT ELBOW REASON FOR EXAM: Male, 38 years old. Pain medial side elbow. TECHNIQUE: Standardized fat and water weighted pulse sequences were obtained in all 3 orthogonal planes. COMPARISON: Right elbow radiographs dated 12/22/2023. FINDINGS: Normal radio-capitellum articulation. Normal radial collateral ligamentous complex. Normal common extensor tendon. Normal ulnotrochlear articulation. Normal ulnar collateral ligamentous complex. Normal common flexor tendon. The cubital tunnel is normal, with a normal ulnar nerve. Normal biceps tendon and distal insertion. Normal lacertus fibrosis. Normal brachialis musculotendinous insertion. Normal triceps tendon and teno-osseous insertion. Normal olecranon proc (more content not included)... [facility]11-27-2024 Evaluation note* Diagnosis Onset Date Resolution Status Admit Date Medial epicondylitis, right elbow acute April 06, 024 1:40pm Bipolar depression chronic Decemb er 2023 8:35am Hypertension chronic April 8:35am Right elbow pain chronic May 02, 2024 8:35am Medial epicondylitis, right elbow acute June 02 9:12am Medial epicondylitis, right elbow acute July 22, 2024 5:58am [facility] Work Phone: [phone]) 446-108604-05-2024 History of Present illness Narrative* Kimmie Smith PA-C - 08/14/2023 2:28 PM EDT This note was created using [employer]. Subjective Echo Hyatt is a 37 year old male. HPI Presents with a chief complaint of sinus pressure for several weeks. He was seen on August 02 and given Augmentin. He states it helped some but did not go away. He was told at one point to follow-up with ENT or his PCP. He states he does not have an appointment until next week with his PCP. He has been using Flonase and Claritin as well. Denies known seasonal allergies. No fever. Denies significant cough or chest congestion. Is noted that his blood pressure is elevated at 151/82, patient discontinued his blood pressure medication on his own. He is not having any symptoms currently. Review of Systems HENT: Positive for congestion, ear pain, rhinorrhea, sinus pressure, sinus pain and sneezing. Negative for sore throat. Respiratory: Negative. Cardiovascular: Negative. Gastrointestinal: Negative. Genitourinary: Negative. Musculoskeletal: Negative. All other systems reviewed and are negative. PAST MEDICAL HISTORY Diagnosis Date Asthma Contracture of hand joint Current Outpatient Medications Medication Sig Dispense Refill fluticasone (FLONASE) 50 mcg/actuation nasal spray Use 2 Sprays in each nostril once daily. Rinse mouth after use. 9.9 mL 0 amLODIPine (NORVASC) 5 mg tablet Take 5 mg by mouth once daily. QUEtiapine (SEROQUEL) 25 mg tablet Take 25 mg by mouth twice daily. predniSONE (DELTASONE) 10 mg tablet Take 4 tabs daily for 3 days, then 2 tabs daily for 3 days, then 1 tab daily for 3 days with food. 21 tablet 0 doxycycline (VIBRA-TABS) 100 mg tablet Take 1 tablet by mouth two times a day for 7 days. 14 tablet0 ofloxacin (FLOXIN) 0.3 % otic solution Use 10 Drops in the left ear once daily. (Patient not taking: Reported on 09/04/2022) 5 mL 0 ibuprofen (MOTRIN) 600 mg tablet Take 600 mg by mouth every 6 hours as needed. (Patient not taking:Reported on 03/30/2023) cyclobenzaprine (FLEXERIL) 10 mg tablet Take 1 tablet by mouth three times daily as needed for muscle spasm. (Patient not taking: Reported on 03/30/2023) 15 tablet 0 No current facility-administered medications for this visit. PAST SURGICAL HISTORY Procedure Laterality Date ABDOMINAL SURGERY HX ORIF CARPOMETACARPAL DISLOC,COMPLX/TURNER FAMILY HISTORY Problem Relation Age of Onset Asthma Mother other (fibromyalgia) Mother Coronary Artery Disease Father Miscarriages / Stillbirths Sister Social History Tobacco Use Smoking status: Former Types: Cigarettes Smokeless tobacco: Never Substance Use Topics Alcohol use: Yes Comment: wine occasionally Drug use: No Objective BP 151/82 Pulse 91 Temp 36.4 C (97.5 F) Resp 18 Wt 73.4 kg (161 lb 13.1 oz) SpO2 99% BMI 27.78 kg/m Physical Exam Vitals reviewed. Constitutional: Appearance: Normal appearance. HENT: Head: Normocephalic and atraumatic. Right Ear: Tympanic membrane, ear canal and external ear normal. Left Ear: Tympanic membrane, ear canal and external ear normal. Nose: Congestion present. Right Sinus: Maxillary sinus tenderness and frontal sinus tenderness present. Left Sinus: Maxillary sinus tenderness and frontal sinus tenderness present. Mouth/Throat: Mouth: Mucous membranes are moist. Pharynx: Oropharynx is clear. Cardiovascular: Rate and Rhythm: Normal rate and regular rhythm. Heart sounds: Normal heart sounds. Pulmonary: Effort: Pulmonary effort is normal. Breath sounds: Normal breath sounds. Musculoskeletal: Cervical back: Neck supple. Lymphadenopathy: Cervical: No cervical adenopathy. Skin: General: Skin is warm and dry. Neurological: Mental Status: He is alert. Assessment and Plan ASSESSMENT/PLAN: 1. Acute recurrent pansinusitis - ICD9: 461.8, ICD10: J01.41 Treat with doxycycline and prednisone. This is the fifth time he has been treated since December for a sinus infection, discussed he really needs to see ENT at this point for further sinus issues. Referred to [facility] across the street and does see PCP next week. Discussed as well his blood pressure, patient had discontinued his amlodipine on his own. Discussed sequala of untreated hypertension.Not having any symptoms currently. Follow-up with primary care. - PREDNISONE 10 MG TABLET - DOXYCYCLINE HYCLATE 100 MG TABLET - CONSULT TO ENT Kimmie Smith PA-C [facility] History of Present illness Narrative* Katrin Stephen APRN.PHOTOGRAPHIC LABORATORY SUPERVISOR - 08/03/2023 9:16 AM EDT CC: Patient presents with: Nasal Congestion: All the time HPI: Echo Hyatt is a 37 year old male who presents to the office with complaint of head congestion and cough, nonproductive for a month. Symptoms are worsening Associated symptoms includes nasal congestion and facial pain/pressure. Denies fever, nausea, pleuritic pain, shortness of breath, vomiting , and diarrhea. Treatments tried include nothing so far. with no relief of symptoms. Sick contacts: unknown. History of asthma, frequent episodes of bronchitis, chronic bronchitis, bronchiectasis or COPD: No Smoker: No Seasonal/environmental allergies: No The ROS is otherwise negative. The patient's pmh, medications, allergies, and past visits are reviewed. PHYSICAL EXAM: BP 110/78 Pulse 103 Temp 36.2 C (97.2 F) (Tympanic) Resp 16 Wt 73.2 kg (161 lb 6 oz) [id number]% BMI 27.70 kg/m General appearance: alert, cooperative, pleasant, in no acute distress Head: Normocephalic Eyes: EOM's intact, conjunctiva pink and moist, no icterus, sclera white, non-injected Ears: Right ear: External ear/canal- Normal, TM - clear with good landmarks. Left ear: External ear/canal- Normal, TM - clear with good landmarks Oropharynx:moist without lesions, No erythema, exudates or tonsillar hypertrophy. Heart: Negative. RRR without obvious murmur, gallop, or rubs. No ectopy. Lungs: clear to auscultation, without rales or wheeze, good air exchange PAST MEDICAL HISTORY Diagnosis Date Asthma Contracture of hand joint PAST SURGICAL HISTORY Procedure Laterality Date ABDOMINAL SURGERY HX ORIF CARPOMETACARPAL DISLOC,COMPLX/TURNER ALLERGIES Patient has no known allergies. MEDICATIONS fluticasone (FLONASE) 50 mcg/actuation nasal spray Use 2 Sprays in each nostril once daily. Rinse mouth after use. amLODIPine (NORVASC) 5 mg tablet Take 5 mg by mouth once daily. QUEtiapine (SEROQUEL) 25 mg tablet Take 25 mg by mouth twice daily. ofloxacin (FLOXIN) 0.3 % otic solution Use 10 Drops in the left ear once daily. (Patient not taking: Reported on 09/04/2022) ibuprofen (MOTRIN) 600 mg tablet Take 600 mg by mouth every 6 hours as needed. (Patient not taking:Reported on 03/30/2023) cyclobenzaprine (FLEXERIL) 10 mg tablet Take 1 tablet by mouth three times daily as needed for muscle spasm. (Patient not taking: Reported on 03/30/2023) FAMILY HISTORY Problem Relation Age of Onset Asthma Mother other (fibromyalgia) Mother Coronary Artery Disease Father Miscarriages / Stillbirths Sister Social History Tobacco Use Smoking status: Former Types: Cigarettes Smokeless tobacco: Never Substance Use Topics Alcohol use: Yes Comment: wine occasionally Drug use: No ASSESSMENT/PLAN: 1. Rhinosinusitis - ICD9: 473.9, ICD10: J32.9 - AMOXICILLIN 875 MG-POTASSIUM CLAVULANATE 125 MG TABLET Prescription instructions reviewed with patient as applicable. Potential red flag symptoms discussed with the patient. Reviewed appropriate action plan to take if red flag symptoms occur. Patient agreeable to treatment plan. Will follow up with PCP Katrin Stephen APRN.PHOTOGRAPHIC LABORATORY SUPERVISOR documented in this encounterK[facility]23 History of Present illness Narrative* Kimmie Smith PA-C - 03/30/2023 8:08 AM EST This note was created using [employer]. Subjective Echo Hyatt is a 37 year old male. HPI Patient presents with cough, congestion, headache, fevers over the past 5 to 6 days. His mom was positive for COVID recently. He was here on day 1, but was treated for a sinus infection. That was really his first day of symptoms but has chronic nasal congestion. [place] started with fevers and body aches. Denies chest pain or shortness of breath. No home COVID test done. Review of Systems Constitutional: Positive for chills, fatigue and fever. HENT: Positive for congestion and rhinorrhea. Negative for ear pain. Respiratory: Positive for cough. Negative for shortness of breath. Cardiovascular: Negative. Gastrointestinal: Negative. Genitourinary: Negative. Musculoskeletal: Positive for myalgias. Skin: Negative. Neurological: Negative. All other systems reviewed and are negative. PAST MEDICAL HISTORY Diagnosis Date Asthma Contracture of hand joint Current Outpatient Medications Medication Sig Dispense Refill fluticasone (FLONASE) 50 mcg/actuation nasal spray Use 2 Sprays in each nostril once daily. Rinse mouth after use. 9.9 mL 0 amLODIPine (NORVASC) 5 mg tablet Take 5 mg by mouth once daily. QUEtiapine (SEROQUEL) 25 mg tablet Take 25 mg by mouth twice daily. amoxicillin-clavulanate potassium (AUGMENTIN) 875-125 mg per tablet Take 1 tablet by mouth two times a day for 5 days. (Patient not taking: Reported on 03/30/2023) 10 tablet 0 ofloxacin (FLOXIN) 0.3 % otic solution Use 10 Drops in the left ear once daily. (Patient not taking: Reported on 09/04/2022) 5 mL 0 ibuprofen (MOTRIN) 600 mg tablet Take 600 mg by mouth every 6 hours as needed. (Patient not taking:Reported on 03/30/2023) cyclobenzaprine (FLEXERIL) 10 mg tablet Take 1 tablet by mouth three times daily as needed for muscle spasm. (Patient not taking: Reported on 03/30/2023) 15 tablet 0 No current facility-administered medications for this visit. PAST SURGICAL HISTORY Procedure Laterality Date ABDOMINAL SURGERY HX ORIF CARPOMETACARPAL DISLOC,COMPLX/TURNER FAMILY HISTORY Problem Relation Age of Onset Asthma Mother other (fibromyalgia) Mother Coronary Artery Disease Father Miscarriages / Stillbirths Sister Social History Tobacco Use Smoking status: Former Types: Cigarettes Smokeless tobacco: Never Substance Use Topics Alcohol use: Yes Comment: wine occasionally Drug use: No Objective BP 120/78 Pulse 97 Temp 36.4 C (97.5 F) Resp 21 Wt 73.4 kg (161 lb 12.8 oz) SpO2 99% BMI 27.77 kg/m Physical Exam Vitals reviewed. Constitutional: Appearance: Normal appearance. HENT: Head: Normocephalic and atraumatic. Right Ear: Tympanic membrane, ear canal and external ear normal. Left Ear: Tympanic membrane, ear canal and external ear normal. Nose: Congestion present. Mouth/Throat: Mouth: Mucous membranes are moist. Pharynx: Oropharynx is clear. Cardiovascular: Rate and Rhythm: Normal rate and regular rhythm. Heart sounds: Normal heart sounds. Pulmonary: Effort: Pulmonary effort is normal. Breath sounds: Normal breath sounds. Musculoskeletal: Cervical back: Neck supple. Skin: General: Skin is warm and dry. Findings: No rash. Neurological: General: No focal deficit present. Mental Status: He is alert. Assessment and Plan ASSESSMENT/PLAN: 1. Suspected COVID-19 virus infection - ICD9: V01.79, ICD10: Z20.822 COVID testing pending. He is on day 6 today, can return to work tomorrow if no fever today. Given work note. Discussed supportive care and red flags for ER care. He is agreeable. - COVID & INFLUENZA A/B & RSV NAAT, ROUTINE Kimmie Smith PA-C documented in this encounterK[facility]11-[facility]23 History of Present illness Narrative* Melania Potter PA - 03/25/2023 2:45 PM EST This note was created using [employer]. Subjective Echo Hyatt is a 37 year old male. HPI 37-year-old male presents for nasal congestion on and off for the past few months. Patient states he has had sinus congestion and pressure for the past few months. He states it is on and off. He states it is exacerbated when he is at work. He denies any cough. No fevers. No sore throat. He has been using [id number] nasal spray with minimal improvement. No chest pain or shortness of breath. No known COVID exposure. PAST MEDICAL HISTORY Diagnosis Date Asthma Contracture of hand joint PAST SURGICAL HISTORY Procedure Laterality Date ABDOMINAL SURGERY HX ORIF CARPOMETACARPAL DISLOC,COMPLX/TURNER ALLERGIES Patient has no known allergies. MEDICATIONS fluticasone (FLONASE) 50 mcg/actuation nasal spray Use 2 Sprays in each nostril once daily. Rinse mouth after use. amLODIPine (NORVASC) 5 mg tablet Take 5 mg by mouth once daily. ibuprofen (MOTRIN) 600 mg tablet Take 600 mg by mouth every 6 hours as needed. cyclobenzaprine (FLEXERIL) 10 mg tablet Take 1 tablet by mouth three times daily as needed for muscle spasm. QUEtiapine (SEROQUEL) 25 mg tablet Take 25 mg by mouth twice daily. amoxicillin-clavulanate potassium (AUGMENTIN) 875-125 mg per tablet Take 1 tablet by mouth two times a day for 5 days. ofloxacin (FLOXIN) 0.3 % otic solution Use 10 Drops in the left ear once daily. (Patient not taking: Reported on 09/04/2022) FAMILY HISTORY Problem Relation Age of Onset Asthma Mother other (fibromyalgia) Mother Coronary Artery Disease Father Miscarriages / Stillbirths Sister Social History Tobacco Use Smoking status: Former Types: Cigarettes Smokeless tobacco: Never Substance Use Topics Alcohol use: Yes Comment: wine occasionally Drug use: No Review of Systems Constitutional: Negative for chills and fever. HENT: Positive for congestion, sinus pressure and sinus pain. Negative for sore throat. Respiratory: Negative for cough and shortness of breath. Gastrointestinal: Negative for diarrhea and vomiting. Objective BP 124/84 Pulse 99 Temp 36.6 C (97.8 F) Resp 16 Wt 74.4 kg (164 lb) SpO2 98% BMI 28.15 kg/m Physical Exam Vitals and nursing note reviewed. Constitutional: General: He is not in acute distress. Appearance: Normal appearance. He is not toxic-appearing. HENT: Right Ear: Tympanic membrane and ear canal normal. Left Ear: Tympanic membrane and ear canal normal. Nose: Congestion present. Right Sinus: Maxillary sinus tenderness and frontal sinus tenderness present. Left Sinus: Maxillary sinus tenderness and frontal sinus tenderness present. Mouth/Throat: Mouth: Mucous membranes are moist. Eyes: Conjunctiva/sclera: Conjunctivae normal. Cardiovascular: Rate and Rhythm: Normal rate and regular rhythm. Pulmonary: Effort: Pulmonary effort is normal. Breath sounds: Normal breath sounds. Skin: General: Skin is warm and dry. Neurological: Mental Status: He is alert. Assessment and Plan ASSESSMENT/PLAN: 1. Bacterial sinusitis - ICD9: 473.9, 041.9, ICD10: J32.9, B96.89 -Symptoms on and off for months. - Will begin treatment with Amoxicillin for 5 days. - Supportive care with plenty of fluids, rest, and analgesia prn. -Declines COVID/flu swab. Diagnosis and treatment plan were discussed and questions were answered to the patient's satisfaction. Pt acknowledged understanding of concepts and follow up plan. Specific signs and symptoms that would indicate the need for higher level of care were discussed in detail warranting prompt ER evaluation. KAYLIE Garrison documented in this encounterK[facility]09-[facility]23 Hospital Discharge instructions Additional Instructions Ice and elevate your foot to decrease pain and swelling. Motrin for pain and swelling Tylenol for pain. Your x-rays were normal today if in 1 to 2 weeks is not improving follow-up with your doctor to have it reevaluated.[facility] Work Phone: [phone]) 984-224708-21-2023 History of Present illness Narrative* Cheryl Desir APRN.PHOTOGRAPHIC LABORATORY SUPERVISOR - 12/29/2022 11:00 AM EDT Subjective Sore Throat Associated symptoms include congestion and coughing. Pertinent negatives include no headaches or vomiting. Echo Hyatt is a 37 year old male who presents with sore throat, sinus congestion for the past 2weeks. He was seen here 4 days ago and treated for sinobronchitis. He did not get his prescriptionsfilled until yesterday. Therefore, he was unable to go to work [place] and yesterday. He is now taking his medication and starting to feel better. He needs a note for work. Review of Systems Constitutional: Negative for chills and fever. HENT: Positive for congestion and sore throat. Respiratory: Positive for cough. Cardiovascular: Negative. Gastrointestinal: Negative for nausea and vomiting. Musculoskeletal: Negative for myalgias. Neurological: Negative for headaches. BP 120/84 Pulse 75 Temp 36.3 C (97.4 F) Resp 21 Wt 73.7 kg (162 lb 6.4 oz) SpO2 100% BMI 27.88 kg/m PAST MEDICAL HISTORY Diagnosis Date Asthma Contracture of hand joint PAST SURGICAL HISTORY Procedure Laterality Date ABDOMINAL SURGERY HX ORIF CARPOMETACARPAL DISLOC,COMPLX/TURNER ALLERGIES Patient has no known allergies. MEDICATIONS amoxicillin-clavulanic acid (AUGMENTIN) 875-125 mg per tablet Take 1 tablet by mouth twice daily for 7 days. predniSONE (DELTASONE) 20 mg tablet Take 2 tablets by mouth once daily for 5 days. fluticasone (FLONASE) 50 mcg/actuation nasal spray Use 2 Sprays in each nostril once daily. Rinse mouth after use. amLODIPine (NORVASC) 5 mg tablet Take 5 mg by mouth once daily. ibuprofen (MOTRIN) 600 mg tablet Take 600 mg by mouth every 6 hours as needed. cyclobenzaprine (FLEXERIL) 10 mg tablet Take 1 tablet by mouth three times daily as needed for muscle spasm. QUEtiapine (SEROQUEL) 25 mg tablet Take 25 mg by mouth twice daily. ofloxacin (FLOXIN) 0.3 % otic solution Use 10 Drops in the left ear once daily. (Patient not taking: Reported on 09/04/2022) FAMILY HISTORY Problem Relation Age of Onset Asthma Mother other (fibromyalgia) Mother Coronary Artery Disease Father Miscarriages / Stillbirths Sister Social History Tobacco Use Smoking status: Former Types: Cigarettes Smokeless tobacco: Never Substance Use Topics Alcohol use: Yes Comment: wine occasionally Drug use: No Objective Physical Exam Vitals and nursing note reviewed. Constitutional: Appearance: Normal appearance. Cardiovascular: Rate and Rhythm: Normal rate and regular rhythm. Heart sounds: Normal heart sounds. Pulmonary: Effort: Pulmonary effort is normal. No respiratory distress. Breath sounds: Normal breath sounds. No wheezing or rales. Skin: General: Skin is warm and dry. Findings: No erythema or rash. Neurological: Mental Status: He is alert. ASSESSMENT/PLAN: 1. Sinobronchitis - ICD9: 473.9, 490, ICD10: J32.9, J40 - take medications as prescribed. - Follow-up with your PCP in 3-5 days if symptoms have not improved or sooner if symptoms worsen - Discussed red flags and need for immediate medical evaluation if any occur. - Discussed supportive care treatment with fluids, rest and analgesia. - Discussed expected course of illness Cheryl Desir APRN.CNP documented in this encounterK[facility]08-21-2023 Instructions* Patient Instructions* Cheryl Desir APRN.CNP - 12/29/2022 10:55 AM EDT ASSESSMENT/PLAN: 1. Sinobronchitis - ICD9: 473.9, 490, ICD10: J32.9, J40 - take medications as prescribed. - Follow-up with your PCP in 3-5 days if symptoms have not improved or sooner if symptoms worsen - Discussed red flags and need for immediate medical evaluation if any occur. - Discussed supportive care treatment with fluids, rest and analgesia. - Discussed expected course of illness Cheryl Desir APRN.PHOTOGRAPHIC LABORATORY SUPERVISOR documented in this encounterK[facility]08-17-2023 History of Present illness Narrative* Leroy Yates APRN.CNP - 12/25/2022 6:53 PM EDT Subjective HPI HPI Echo Hyatt is a 37 year old male who presents today for CC of sinus pressure, cough. This started 2 weeks ago. Has tried otc medication for relief. Symptoms are worsened by nothing. Risk factors hx of asthma, smoker. .Patient presents with: Nasal Congestion: Cough, sinus issues x 2 weeks PAST MEDICAL HISTORY Diagnosis Date Asthma Contracture of hand joint PAST SURGICAL HISTORY Procedure Laterality Date ABDOMINAL SURGERY HX ORIF CARPOMETACARPAL DISLOC,COMPLX/TURNER ALLERGIES Patient has no known allergies. MEDICATIONS fluticasone (FLONASE) 50 mcg/actuation nasal spray Use 2 Sprays in each nostril once daily. Rinse mouth after use. amLODIPine (NORVASC) 5 mg tablet Take 5 mg by mouth once daily. ibuprofen (MOTRIN) 600 mg tablet Take 600 mg by mouth every 6 hours as needed. cyclobenzaprine (FLEXERIL) 10 mg tablet Take 1 tablet by mouth three times daily as needed for muscle spasm. QUEtiapine (SEROQUEL) 25 mg tablet Take 25 mg by mouth twice daily. amoxicillin-clavulanic acid (AUGMENTIN) 875-125 mg per tablet Take 1 tablet by mouth twice daily for 7 days. predniSONE (DELTASONE) 20 mg tablet Take 2 tablets by mouth once daily for 5 days. ofloxacin (FLOXIN) 0.3 % otic solution Use 10 Drops in the left ear once daily. (Patient not taking: Reported on 09/04/2022) FAMILY HISTORY Problem Relation Age of Onset Asthma Mother other (fibromyalgia) Mother Coronary Artery Disease Father Miscarriages / Stillbirths Sister Social History Tobacco Use Smoking status: Former Types: Cigarettes Smokeless tobacco: Never Substance Use Topics Alcohol use: Yes Comment: wine occasionally Drug use: No Review of Systems Constitutional: Negative for fever. HENT: Positive for congestion and sinus pain. Negative for ear pain, nosebleeds and sore throat. Respiratory: Positive for cough. Negative for shortness of breath and wheezing. Musculoskeletal: Negative for neck pain. Skin: Negative for itching and rash. Objective Blood pressure 110/82, pulse 90, temperature 36.6 C (97.8 F), resp. rate 20, weight 73.8 kg (162 lb9.6 oz), SpO2 99 %. Physical Exam Constitutional: General: He is not in acute distress. Appearance: He is not toxic-appearing or diaphoretic. HENT: Head: Normocephalic and atraumatic. Nose: Left Sinus: Maxillary sinus tenderness present. Cardiovascular: Rate and Rhythm: Normal rate and regular rhythm. Heart sounds: Normal heart sounds, S1 normal and S2 normal. Pulmonary: Effort: Pulmonary effort is normal. Breath sounds: Normal breath sounds. Lymphadenopathy: Cervical: No cervical adenopathy. Right cervical: No superficial cervical adenopathy. Left cervical: No superficial cervical adenopathy. Neurological: Mental Status: He is alert and oriented to person, place, and time. Gait: Gait is intact. ASSESSMENT/PLAN: 1. Sinobronchitis - ICD9: 473.9, 490, ICD10: J32.9, J40 - Will begin treatment with as per antibiotic as written, see orders - Supportive care with plenty of fluids, rest, and analgesia prn. - Follow up in 3-5 days if symptoms persist or worsen. - AMOXICILLIN 875 MG-POTASSIUM CLAVULANATE 125 MG TABLET - PREDNISONE 20 MG TABLET Leroy Yates APRN.PHOTOGRAPHIC LABORATORY SUPERVISOR documented in this encounterK[facility]08-08-2023 History of Present illness Narrative* Cheryl Desir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 Negative for neck pain. Objective Blood pressure 132/82, pulse 67, temperature 36.3 C (97.4 F), temperature source Tympanic, resp. rate 16, weight 73.4 kg (161 lb 12.8 oz), SpO2 99 %. Physical Exam Constitutional: General: He is not in acute distress. Appearance: He is not toxic-appearing or diaphoretic. HENT: Head: Normocephalic and atraumatic. Right Ear: Hearing, tympanic membrane, ear canal and external ear normal. Left Ear: Hearing and external ear normal. Swelling and tenderness present. Tympanic membrane is not perforated, erythematous or bulging. Pulmonary: Effort: Pulmonary effort is normal. No accessory muscle usage or respiratory distress. Neurological: Mental Status: He is alert and oriented to person, place, and time. ASSESSMENT/PLAN: 1. Acute otitis externa of left ear, unspecified type - ICD9: 380.10, ICD10: H60.502 -education material provided -use medication as prescribed -f/u if no better in 3-5 days -discussed proper ear hygiene -discussed prevention - OFLOXACIN 0.3 % EAR DROPS Leroy Yates APRN.PHOTOGRAPHIC LABORATORY SUPERVISOR documented in this encounterKettering [facility]10-18-2022 History of Present illness Narrative* Katrin Stephen APRN.KELLY - 02/25/2022 8:02 PM EDT Images from the original note were not included. Subjective She came in with complaints of left upper tooth pain. Patient says it started about a day ago. Patient says he has history of tooth infections in that area. Patient denies any fever nausea vomiting chills. The history is provided by the patient. No speech language pathologist was used. Dental Problem Review of Systems Constitutional: Negative. Skin: Negative. Objective Physical Exam Constitutional: Appearance: Normal appearance. HENT: Mouth/Throat: Comments: Patient says he has pain in the area marked above. No erythema or edema noted. Pulmonary: Effort: Pulmonary effort is normal. Neurological: Mental Status: He is alert. PAST MEDICAL HISTORY Diagnosis Date Asthma Contracture of hand joint PAST SURGICAL HISTORY Procedure Laterality Date ABDOMINAL SURGERY HX ORIF CARPOMETACARPAL DISLOC,COMPLX/TURNER ALLERGIES Patient has no known allergies. MEDICATIONS amLODIPine (NORVASC) 5 mg tablet Take 5 mg by mouth once daily. ibuprofen (MOTRIN) 600 mg tablet Take 600 mg by mouth every 6 hours as needed. cyclobenzaprine (FLEXERIL) 10 mg tablet Take 1 tablet by mouth three times daily as needed for muscle spasm. fluticasone (FLONASE) 50 mcg/actuation nasal spray Use 2 Sprays in each nostril once daily. Rinse mouth after use. QUEtiapine (SEROQUEL) 25 mg tablet Take 25 mg by mouth twice daily. penicillin V potassium (V-CILLIN, VEETIDS) 500 mg tablet Take 1 tablet by mouth four times daily for 5 days. FAMILY HISTORY Problem Relation Age of Onset Asthma Mother other (fibromyalgia) Mother Coronary Artery Disease Father Miscarriages / Stillbirths Sister Social History Tobacco Use Smoking status: Former Types: Cigarettes Smokeless tobacco: Never Substance Use Topics Alcohol use: Yes Comment: wine occasionally Drug use: No ASSESSMENT/PLAN: 1. Pain, dental - ICD9: 525.9, ICD10: K08.89 Patient placed on Pen-V K 4 times a day for 5 days. Patient was instructed signs to watch for worsening. Follow-up right away if any of these happen. Patient will call his dentist and schedule an appointment patient was okay with this care plan. Katrin Stephen APRN.KELLY documented in this encounterKettering Health [facility]08-18-2022 History of Present illness Narrative* Ramón Norton MD - 12/26/2021 6:45 PM EDT Patient presents with: Headache: Pt reported BP medication, follow up with PCP scheduled ,waite pain rated 2, dizziness onsetAM. HPI: Patient feeling dizzy at work today. [place] like he could not focus. Head pain: Duration: today Location: left confucianism Character: heartbeat. He has had similar headaches in the past Radiation: No. Aggravating: not bothered by light or sound Relieving: Pain relievers: Tylenol Associated: started new BP medicine 1 month ago, working 2 jobs, feeling tired Pertinent negatives: Denies numbness, weakness, vision change, fever, nasal congestion, rhinorrhea,sore throat, cough, shortness of breath, nausea, vomiting, diarrhea Reports he had COVID illness at the beginning of the pandemic. PAST MEDICAL HISTORY Diagnosis Date Asthma Contracture of hand joint MEDICATIONS: amLODIPine (NORVASC) 5 mg tablet Take 5 mg by mouth once daily. ibuprofen (MOTRIN) 600 mg tablet Take 600 mg by mouth every 6 hours as needed. cyclobenzaprine (FLEXERIL) 10 mg tablet Take 1 tablet by mouth three times daily as needed for muscle spasm. fluticasone (FLONASE) 50 mcg/actuation nasal spray Use 2 Sprays in each nostril once daily. Rinse mouth after use. QUEtiapine (SEROQUEL) 25 mg tablet Take 25 mg by mouth twice daily. ALLERGIES: ALLERGIES No Known Allergies VITALS: BP 134/82 Pulse 107 Temp 37 C (98.6 F) Resp 18 Wt 74.1 kg (163 lb 6.4 oz) SpO2 97% BMI 28.05 kg/m Last 8 Encounter BP Readings: Date: BP: 12/26/2021 134/82 10/04/2021 108/80 10/04/2021 120/70 09/27/2021 122/76 09/04/2021 128/88 08/26/2021 124/72 02/12/2021 118/80 01/22/2021 122/80 PHYSICAL EXAM: GEN: pleasant, no acute distress, alert HEENT: PERRL, EOMI, MMM NECK: supple, no lymphadenopathy, no thyromegaly HEART: regular rate during my exam, regular rhythm, no murmurs LUNGS: clear to auscultation, no wheezes or crackles, no increased WOB EXT: no clubbing, no cyanosis, no edema NEURO: Alert and oriented to person, place, and time. CN II-XII intact. DTR 1+/4. Normal strength. Normal gait. No tremor. ASSESSMENT/PLAN: 1. Headache, unspecified headache type - ICD9: 784.0, ICD10: R51.9 (primary diagnosis) Suspect migraine. He has had similar unilateral headaches in the past. He normally treats them successfully with sleep. 2. Dizziness - ICD9: 780.4, ICD10: R42 Normal physical exam. Low suspicion for intracranial process. He will go home, rest, and hydrate. Given excuse from work tonight. He has follow up scheduled with his PCP next week. He agrees to go to the emergency room for worsening headache, worsening dizziness, worsening nausea, vision change, numbness, weakness, or speech difficulty. Ramón Norton MD documented in this encounterKettering Health [facility]05-27-2022 History of Present illness Narrative* Cheryl Desir APRN.PHOTOGRAPHIC LABORATORY SUPERVISOR - 10/04/2021 4:18 PM EDT [facility] presented to [facility] for completion of ADA disability forms. He is advised that [facility] does not fill out these forms, as noted in his instructions at his last visit. He is directed to his primary care provider. Cheryl Aggarwal APRN.KELLY documented in this encounterKettering Health [facility]05-27-2022 History of Present illness Narrative* Sherif Woodruff MD - 10/04/2021 11:19 AM EDT Chief Complaint Patient presents with: right arm- tendonitis: wanting release to go back to work HPI Echo Hyatt is a 35 year old male who presents here today for Above Complaints.. Patient was evaluated by on 09/04 and 09/27 for tendonitis of his right elbow due to overuse. LastHPI from on 09/27: HPI Echo Hyatt is a 35 year old male who presents with request for forms to be filled out for supplemental life insurance policy. ([employer]). If he has these forms filled out this company will pay him a set amount for each day he was unable to work. He was seen here on 09/04 for an injury to right elbow (tendonitis) due to overuse. He was working 12 hour days instead of 8and his arm started hurting. Since being seen here he has been seen by [facility], and [facility] for orthopedic referral and physical therapy. He is currently receiving PT through 10/11 and unable to work until 10/11 at which point PT will determine if he can return to work. Patient has forms with him today. Notes that he has PCP Dr. Boss who has been filling his other medications. Discussed with him that if he has an established PCP, he will need to have them fill outhis return to work forms. He has not established with this office. Patient agreeable and will call them. Will not charge for this visit today. Past medical history, appointments, medications, allergies reviewed. Previous Medical History PAST MEDICAL HISTORY Diagnosis Date Asthma Contracture of hand joint Previous Surgical History PAST SURGICAL HISTORY Procedure Laterality Date ABDOMINAL SURGERY HX ORIF CARPOMETACARPAL DISLOC,COMPLX/TURNER Family History FAMILY HISTORY Problem Relation Age of Onset Asthma Mother other (fibromyalgia) Mother Coronary Artery Disease Father Miscarriages / Stillbirths Sister Patient Allergies ALLERGIES No Known Allergies Current Medications Current Outpatient Medications on File Prior to Visit Medication Sig ibuprofen (MOTRIN) 600 mg tablet Take 600 mg by mouth every 6 hours as needed. cyclobenzaprine (FLEXERIL) 10 mg tablet Take 1 tablet by mouth three times daily as needed for muscle spasm. pseudoephedrine (SUDAFED) 30 mg tablet Take 2 tablets by mouth twice daily. fluticasone (FLONASE) 50 mcg/actuation nasal spray Use 2 Sprays in each nostril once daily. Rinse mouth after use. QUEtiapine (SEROQUEL) 25 mg tablet Take 25 mg by mouth twice daily. No current facility-administered medications on file prior to visit. Social History Social History Tobacco Use Smoking status: Former Smoker Types: Cigarettes Smokeless tobacco: Never Used Substance Use Topics Alcohol use: Yes Comment: wine occasionally Drug use: No Review of Symptoms REVIEW OF SYSTEMS See HPI EXAM: BP 108/80 Pulse 103 Resp 18 Wt 77.6 kg (171 lb) SpO2 97% BMI 29.35 kg/m General Appearance: Well appearing, alert, in no acute distress, well-hydrated, well nourished.. Health Maintenance List COVID-19 VACCINE(1) Never done DEPRESSION SCREENING Never done HEPATITIS C SCREENING Never done HIV SCREENING Never done DTAP,TDAP,TD(1 - Tdap) Never done LIPID SCREEN Never done INFLUENZA(Season Ended) due on 01/09/2022 ASSESSMENT/PLAN: 1. Tendonitis of elbow, right - ICD9: 727.09, ICD10: M77.8 Follow up with PCP to return to work. Sherif Woodruff MD documented in this encounterK[facility] History of Present illness Narrative* Cheryl Desir, PREMA.PHOTOGRAPHIC LABORATORY SUPERVISOR - 09/27/2021 10:01 AM EDT Subjective HPI Echo Hyatt is a 35 year old male who presents with request for forms to be filled out for supplemental life insurance policy. ([employer]). If he has these forms filled out this company will pay him a set amount for each day he was unable to work. He was seen here on 09/04 for an injury to right elbow (tendonitis) due to overuse. He was working 12 hour days instead of 8and his arm started hurting. Since being seen here he has been seen by [facility], and [facility] for orthopedic referral and physical therapy. He is currently receiving PT through 10/11 and unable to work until 10/11 at which point PT will determine if he can return to work. Review of Systems Constitutional: Negative for chills and fever. Musculoskeletal: Positive for joint pain. Negative for falls. Skin: Negative. BP 122/76 Pulse 81 Temp 36.3 C (97.3 F) Resp 16 Wt 78.3 kg (172 lb 9.6 oz) SpO2 97% BMI29.63 kg/m PAST MEDICAL HISTORY Diagnosis Date Asthma Contracture of hand joint PAST SURGICAL HISTORY Procedure Laterality Date ABDOMINAL SURGERY HX ORIF CARPOMETACARPAL DISLOC,COMPLX/TURNER ALLERGIES Patient has no known allergies. MEDICATIONS ibuprofen (MOTRIN) 600 mg tablet Take 600 mg by mouth every 6 hours as needed. cyclobenzaprine (FLEXERIL) 10 mg tablet Take 1 tablet by mouth three times daily as needed for muscle spasm. pseudoephedrine (SUDAFED) 30 mg tablet Take 2 tablets by mouth twice daily. fluticasone (FLONASE) 50 mcg/actuation nasal spray Use 2 Sprays in each nostril once daily. Rinse mouth after use. QUEtiapine (SEROQUEL) 25 mg tablet Take 25 mg by mouth twice daily. FAMILY HISTORY Problem Relation Age of Onset Asthma Mother other (fibromyalgia) Mother Coronary Artery Disease Father Miscarriages / Stillbirths Sister Social History Tobacco Use Smoking status: Former Smoker Types: Cigarettes Smokeless tobacco: Never Used Substance Use Topics Alcohol use: Yes Comment: wine occasionally Drug use: No Objective Physical Exam Vitals and nursing note reviewed. Constitutional: Appearance: Normal appearance. Musculoskeletal: Right elbow: No swelling, deformity or effusion. Decreased range of motion. Tenderness present. Skin: General: Skin is warm and dry. Neurological: Mental Status: He is alert. ASSESSMENT/PLAN: 1. Tendonitis of elbow, right - ICD9: 727.09, ICD10: M77.8 -forms filled out as requested. Patient advised that this office does not fill out assisted disability forms. - continue with PT as scheduled. - follow up with PCP or Ortho for further concerns. Cheryl Desir APRN.PHOTOGRAPHIC LABORATORY SUPERVISOR documented in this encounterK[facility]04-27-2022 History of Present illness Narrative* Kimmie Smith PA-C - 09/04/2021 9:40 AM EDT This note was created using [employer]elliMat. Subjective Echo Hyatt is a 35 year old male. HPI Patient presents with right forearm pain and swelling this morning. 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 Hestates he had something similar happen 5 years ago as well. This morning he woke up and his arm wasvery sore and stiff and swollen. No OTC meds tried. He had to leave work today because it was so deloris nful. He has pain going into his fingers. Review of Systems Musculoskeletal: Right forearm pain All other systems reviewed and are negative. PAST MEDICAL HISTORY Diagnosis Date Asthma Contracture of hand joint Current Outpatient Medications Medication Sig Dispense Refill pseudoephedrine (SUDAFED) 30 mg tablet Take 2 tablets by mouth twice daily. 24 tablet 0 fluticasone (FLONASE) 50 mcg/actuation nasal spray Use 2 Sprays in each nostril once daily. Rinse mouth after use. 9.9 mL 0 QUEtiapine (SEROQUEL) 25 mg tablet Take 25 mg by mouth twice daily. predniSONE (DELTASONE) 10 mg tablet Take 4 tabs daily for 3 days, then 2 tabs daily for 3 days, then 1 tab daily for 3 days with food. 21 tablet 0 cyclobenzaprine (FLEXERIL) 10 mg tablet Take 1 tablet by mouth three times daily as needed for muscle spasm. 15 tablet 0 No current facility-administered medications for this visit. PAST SURGICAL HISTORY Procedure Laterality Date ABDOMINAL SURGERY HX ORIF CARPOMETACARPAL DISLOC,COMPLX/TURNER FAMILY HISTORY Problem Relation Age of Onset Asthma Mother other (fibromyalgia) Mother Coronary Artery Disease Father Miscarriages / Stillbirths Sister Social History Tobacco Use Smoking status: Former Smoker Types: Cigarettes Smokeless tobacco: Never Used Substance Use Topics Alcohol use: Yes Comment: wine occasionally Drug use: No Objective BP 128/88 Pulse 80 Temp 36.4 C (97.5 F) Resp 18 Wt 78.4 kg (172 lb 12.8 oz) SpO2 99% BMI 29.66 kg/m Physical Exam Vitals reviewed. Constitutional: Appearance: Normal appearance. Musculoskeletal: Comments: Sabino of the right forearm reveals swelling and tenderness to the flexor muscles of the forearm. Pain with flexion of the wrist. Able to fully flex and extend the elbow. Radial pulse 2+. Normal distal sensation. Skin: General: Skin is warm and dry. Neurological: Mental Status: He is alert. Assessment and Plan ASSESSMENT/PLAN: 1. Forearm tendonitis - ICD9: 727.05, ICD10: M77.8 Discussed with the patient he needs to rest over the next several days, ice, given prednisone for pain. Discussed if not better in 3 to 4 days to follow-up with PCP. Patient agreeable. Kimmie Smith PA-C documented in this encounterK[facility]04-19-2022 Miscellaneous Notes* Telephone Encounter - Gwen Davis LPN - 08/27/2021 8:06 AM EDT Phone call placed patient notified (see prior provider encounter) Patient verbalized understanding, agreed with plan of care. Gwen Davis LPN * Telephone Encounter - Katrin Stephen APRN.CNP - 08/27/2021 7:18 AM EDT Negative for flu and covid please notify thank you documented in this encounterK[facility]04-18-2022 Instructions* Patient Instructions* Sabina Rhodes APRN.CNP - 08/26/2021 11:04 AM EDT covid/flu test ordered You will be notified in 24 -48 hours, results available on [facility] Home isolation until covid/flu results are back Rest, increase water intake Motrin or Tylenol as needed for fever or pain. Salt water gargles, chloraseptic spray or lozenges as needed for sore throat. Warm beverages, honey. Nasal saline spray as needed Cool mist humidifier at night Tylenol (generic acetaminophen) 500 mg-2 tabs every 8 hrs. as needed for fever and aches Ibuprofen 600 mg (3-200mg tablets) every 6 hours -Sudafed (generic is fine), behind the counter, 2x30 mg tabs twice daily as needed for congestion Flonase 2 sprays in each nostril once a day * Seek medical care immediately, call 911, go to ER if you have chest pain, difficulty breathing, shortness of breath, inability to swallow. documented in this encounterK[facility]04-18-2022 History of Present illness Narrative* Sabina Rhodes APRN.CNP - 08/26/2021 10:59 AM EDT Subjective The history is provided by the patient. No speech language pathologist was used. HPI Echo Hyatt is a 35 year old male who presents today for CC of sinus pressure and congestionthat started today, and also right ear pain. He has used no treatment or medications. No known exposure to covid or anyone with viral symptoms. BP 124/72 Pulse 108 Temp 36.2 C (97.2 F) Resp 16 Wt 79.8 kg (176 lb) SpO2 98% BMI 30.21kg/m Social History Tobacco Use Smoking status: Former Smoker Types: Cigarettes Smokeless tobacco: Never Used Substance Use Topics Alcohol use: Yes Comment: wine occasionally Drug use: No PAST MEDICAL HISTORY Diagnosis Date Asthma Contracture of hand joint I have confirmed and edited as necessary, the [facility] Review of Systems Constitutional: Negative for chills, fever and malaise/fatigue. HENT: Positive for congestion, ear pain (right) and sinus pain. Negative for sore throat. Respiratory: Negative for cough, sputum production, shortness of breath and wheezing. Cardiovascular: Negative for chest pain. Gastrointestinal: Negative for abdominal pain, diarrhea, nausea and vomiting. Musculoskeletal: Negative for myalgias. Neurological: Negative for headaches. Objective Physical Exam Vitals and nursing note reviewed. HENT: Head: Normocephalic and atraumatic. Right Ear: Ear canal and external ear normal. A middle ear effusion (serous) is present. Tympanic membrane is bulging. Left Ear: Tympanic membrane, ear canal and external ear normal. Nose: Mucosal edema, congestion and rhinorrhea present. Right Sinus: Maxillary sinus tenderness present. No frontal sinus tenderness. Left Sinus: Maxillary sinus tenderness present. No frontal sinus tenderness. Mouth/Throat: Pharynx: Uvula midline. No oropharyngeal exudate or posterior oropharyngeal erythema. Tonsils: No tonsillar abscesses. Cardiovascular: Rate and Rhythm: Normal rate and regular rhythm. Heart sounds: Normal heart sounds. Pulmonary: Effort: Pulmonary effort is normal. Breath sounds: Normal breath sounds. No decreased breath sounds, wheezing, rhonchi or rales. Lymphadenopathy: Head: Right side of head: No submental, submandibular, tonsillar or preauricular adenopathy. Left side of head: No submental, submandibular, tonsillar or preauricular adenopathy. Cervical: No cervical adenopathy. Right cervical: No superficial cervical adenopathy. Left cervical: No superficial cervical adenopathy. ASSESSMENT/PLAN: 1. Viral illness - ICD9: 079.99, ICD10: B34.9 (primary diagnosis) - Discussed viral etiology and rationale for treatment. - Symptomatic treatment with prn analgesia - Supportive care with fluids and rest - COVID WITH FLUA+B, ROUTINE 2. Suspected COVID-19 virus infection - ICD9: V01.79, ICD10: Z20.822 Home isolation Testing ordered Comfort measures discussed - see patient instructions. When to seek higher level of care Notified in 24-48 hours with results, available on mychart - COVID WITH FLUA+B, ROUTINE Diagnosis and treatment plan were discussed and questions were answered to the patient's satisfaction. Pt acknowledged understanding of concepts and follow up plan. Specific signs and symptoms that would indicate the need for higher level of care were discussed indetail warranting prompt ER evaluation. Sabina Rhodes APRN.KELLY documented in this encounterK[facility]03-17-2021 History of Present illness Narrative* Cesar Walker (Rt), Areli - 07/25/2020 11:10 AM EDT Radiology Service Progress Note PATIENT NAME: Echo Hyatt DATE OF SERVICE: July 25, 2020 TIME: 11:39 AM PATIENT IDENTITY VERIFICATION COMPLETED USING TWO (2) IDENTIFIERS: Name and Date of confirmedby patient verbally. FALL SCREENING: Has the patient had 2 falls in the last year or 1 fall with injury or currently using an Ambulatory Assistive Device (Walker, Cane, Wheelchair, Crutches, etc.)? No PATIENT GENDER DATA: Male PATIENT RELEVANT IMPLANT DATA REVIEWED: Not Applicable RADIOLOGY DEPARTMENT: General X-ray: Exam(s) Completed: Spine X-Ray(s): Lumbar AP / LAT / L5-S1 PERIPHERAL IV DATA: Not applicable SIGNED BY: RT Geovani July 25, 2020 11:39 AM documented in this encounterKettering [facility]02-18-2021 History of Present illness Narrative* Frida Cesar Tech (Tech) - 06/28/2020 4:30 PM EST Radiology Service Progress Note PATIENT NAME: Echo Hyatt DATE OF SERVICE: June 28, 2020 TIME: 4:29 PM PATIENT IDENTITY VERIFICATION COMPLETED USING TWO (2) IDENTIFIERS: Name and Date of confirmedby patient verbally. FALL SCREENING: Has the patient had 2 falls in the last year or 1 fall with injury or currently using an Ambulatory Assistive Device (Walker, Cane, Wheelchair, Crutches, etc.)? No PATIENT GENDER DATA: Male PATIENT RELEVANT IMPLANT DATA REVIEWED: Not Applicable RADIOLOGY DEPARTMENT: General X-ray: Exam(s) Completed: Upper Extremity X- Ray(s): Wrist, right and Hand, right : PERIPHERAL IV DATA: Not applicable SIGNED BY: Areli Beck June 28, 2020 4:29 PM documented in this encounterKettering Health HamiltonConsult note Author Leopoldo Nash [facility] Note Date/Time July 22, 2024 10: 54am [facility] Medical Records Department [address] [place] [address] Anesthesia Postop Eval II 07/22/24929 MR#: [id number] Acct: [id number] Name: ECHO HYATT Rep #:[id number] : 1985 38 From: Leopoldo Nash MD PCP: Dr. Francy Boss MD Status:R EG 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 Anesthesia Postop Eval I: Fluid Summary Crystalloid volume administer 700 07/22/24 08:25 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 (ml) Colloids volume administered ( ml) Blood Product volume administered (ml) Total IV fluid infused 700 07/22/24 08:25 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 Anesthesia Postop Eval I: Summary Notes Anesthesia Complication No 07/22/24 08:25 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 Anesthesia Complication Comment: Post-operative progress note Anesthesia: Postop Eval II Evaluation Mental status: Awake Pain Level: 4 nausea: No Vomiting: No 07/22/24929 <Electronically signed by Leopoldo Nash MD > Date _ Leopoldo Nash MD Cosigner Signature: Date CC: ~ Signed [facility] Work Phone: Evaluation note* Diagnosis Viral illness- Primary Unspecified viral infection, in conditions classified elsewhere and of unspecified site Suspected COVID-19 virus infection [facility]* Diagnosis Forearm tendonitis- Primary Other tenosynovitis of hand and wrist [facility] noteNo assessment information availableWSelect Medical [facility] Work Phone: evaluation note* Diagnosis Onset Date Resolution Status Right elbow pain acute Bipolar depression chronic Hypomania [facility] Work Phone: evaluation note* Diagnosis Tendonitis of elbow, right- Primary Other synovitis and tenosynovitis documented in this encounter [facility] note* Diagnosis Tendonitis of elbow, right- Primary Other synovitis and tenosynovitis [facility]* Diagnosis APPOINTMENT CANCELLED- Primary documented in this encounter [facility] note* Diagnosis Onset Date Resolution Status Right elbow pain acute Bipolar depression chronic Hypomania chronic Right elbow pain acute Hypertension chronic Overweight (BMI 25.0-29.9) a cute Tobacco abuse acute Hypertension [facility] Work Phone: evaluation note* Diagnosis Headache, unspecified headache type- Primary Dizziness Dizziness and giddiness documented [facility]* Diagnosis Pain, dental- Primary Unspecified disorder of the teeth and supporting structures [facility]* Diagnosis Acute otitis externa of left ear, unspecified type- Primary [facility]* Diagnosis Onset Date Resolution Status URI (upper respiratory infection) acute Sinusitis acute Hypertension chronic Sinusitis acute Bipolar depression chronic Hypertension [facility] Work Phone: evaluation note* Diagnosis Dizzy- Primary Dizziness and giddiness documented [facility]* Diagnosis Fatigue, unspecified type- Primary [facility]* Diagnosis Chronic hand pain, right- Primary [facility]* Diagnosis URI, acute- Primary Acute upper respiratory infections of unspecified site documented [facility]* Diagnosis Nasal congestion- Primary Other diseases of nasal cavity and sinuses [facility]* Diagnosis Sinobronchitis- Primary Unspecified sinusitis (chronic) [facility]* Diagnosis Sinobronchitis- Primary Unspecified sinusitis (chronic) [facility]* Diagnosis Bacterial sinusitis- Primary Unspecified sinusitis (chronic) documented in this encounter [facility] note* Diagnosis Suspected COVID-19 virus infection- Primary documented in this encounter [facility] note* Diagnosis Rhinosinusitis- Primary Unspecified sinusitis (chronic) documented in this encounter [facility] note* Diagnosis Acute recurrent pansinusitis- Primary Other acute sinusitis documented in this encounter [facility] note* Diagnosis Hand pain, right Pain in limb documented in this encounter [facility] note* Diagnosis Acute left-sided low back pain without sciatica documented in this encounter [facility] note* Diagnosis Right elbow pain- Primary Pain in joint, upper arm [facility] Additional Instructions Take antibiotics until finished. I referred you to ENT. Please call to make an appointmentWSelect [facility] Work Phone: Hospital Discharge instructionsAmbulatory Orders* Pain Management Location: None Selected [facility] Work Phone: Reason for referral (narrative)No reason for referral information availableWSelect [facility] Work Phone: Summary Purpose Family History No Family History Records Found Relationship Condition Age at Onset Recorded Date/T donnie mother Disorder of thyroid Unknown Advance Directives No Advanced Directives Records Found Advance Directive Response Recorded Date/ Time Living Will No September 09, 2021 11 :51am Power of Biller No September 09, 2021 11:51am Advance Directive Response Recorded Date/ Time Living Will No December 04, 2021 11:30pm Power of Biller No December 04 11:30pm Advance Directive Response Recorded Date/ Time Living Will No December 16, 2021 11:32pm Power of Biller No December 16 11:32pm Advance Directive Response Recorded Date/ Time Living Will No December 30 10:31am Power of Biller No December 30 10:31am Advance Directive Response Recorded Date/ Time Living Will No June 13 6:30pm Power of Biller No June 13, 2022 6:30pm Advance Directive Response Recorded Date/ Time Living Will No January 28, 2023 2:35pm Power of Biller No January 2:35pm Advance Directive Response Recorded Date/ Time Living Will No August 20, 2023 1:05pm Power of Biller No August 19 1:05pm Advance Directive Response Recorded Date/ Time Living Will No December 16, 2023 2:33pm Power of Biller No December 15 2:33pm Living Will No July 08, 025 9:36am Power of Biller No July 08, 2024 9:36am Advance Directive Response Recorded Date/ Time Living Will No July 08, 025 9:36am Do you have a Healthcare Power of Biller? No July 08, 2024 9:36am Chief Complaint and Reason for Visit Chief Complaint UPPER EXTREMITY Chief Complaint UPPER EXTREMITY 6 M FU RT ELBOW PAIN. RX HERE Reason for Visit Right elbow pain Bipolar depression Hypomania Chief Complaint UPPER EXTREMITY 6 M FU FOLLOW UP ON ELBOW, NEEDS PAPERWORK SIGNED RT ELBOW PAIN. RX HERE 6 wk FU CHILLS AND FEVER Reason for Visit Right elbow pain Bipolar depression Hypomania Right elbow pain Hypertension Overweight (BMI 25.0-29.9) Tobacco abuse Hypertension Chief Complaint UPPER EXTREMITY 6 M FU FOLLOW UP ON ELBOW, NEEDS PAPERWORK SIGNED RT ELBOW PAIN. RX HERE 6 wk FU CHILLS AND FEVER lac Reason for Visit Right elbow pain Bipolar depression Hypomania Right elbow pain Hypertension Overweight (BMI 25.0-29.9) Tobacco abuse Hypertension Chief Complaint UPPER EXTREMITY 6 M FU FOLLOW UP ON ELBOW, NEEDS PAPERWORK SIGNED RT ELBOW PAIN. RX HERE 6 wk FU CHILLS AND FEVER lac NAUSEA Reason for Visit Right elbow pain Bipolar depression Hypomania Right elbow pain Hypertension Overweight (BMI 25.0-29.9) Tobacco abuse Hypertension Chief Complaint CONCERN FOR SI 3 M FU 1 M FU LOWER EXTREMITY Reason for Visit URI (upper respirato ry infection) Sinusitis Hypertension Sinusitis Bipolar depression Hypertension Chief Complaint foot injury Chief Complaint SINUS COMPLAINT SINUS Chief Complaint Admit Date RT ELBOW. RX HERE April 05, 2024 8:30am RIGHT ARM April 06, 2024 1:40pm RIGHT ARM May 02, 2024 8:35am RT ELBOW MEDIAL EPICONDYLITIS May 242024 6:26am RIGHT ARM June 02, 2024 9 :12am Right elbow common flexor origin debride ment and r July 22, 2024 5:58am Right elbow common flexor origin debride ment and r July 22, 2024 7:07am Reason for Visit Admit Date Medial epicondylitis, right elbow Novemb er 2023 1:40pm Bipolar depression May 02, 2024 8:35am Hypertension May 02, 2024 8:35am Right elbow pain May 02, 2024 8:35am Medial epicondylitis, right elbow Januar y 2024 9:12am Medial epicondylitis, right elbow July 22, 2024 5:58am Chief Complaint Admit Date Right elbow common flexor origin debride ment and r July 22, 2024 5:58am Right elbow common flexor origin debride ment and r July 22, 2024 7:07am right elbow July 25, 2024 9:0 7am 3 M FU August 01, 2024 10: 22am right elbow August 04, 2024 9:1 3am RIGHT ELBOW September 01, 2024 8:4 5am RIGHT ELBOW. RX HERE September 06, 2024 9: 00am RIGHT ELBOW October 20, 2024 8:45 am Reason for Visit Admit Date Medial epicondylitis, right elbow July 22, 2024 5:58am Medial epicondylitis, right elbow July 25, 2024 9:07am Bipolar depression August 01, 2024 10: 22am Hypertension August 01, 2024 10: 22am Medial epicondylitis, right elbow August 01, 2024 10:22am Medial epicondylitis, right elbow August 04, 2024 9:13am Medial epicondylitis, right elbow September 01, 2024 8:45am Medial epicondylitis, right elbow October 092024 8:45am Chief Complaint Admit Date 3 M FU August 01, 2024 10: 22am right elbow August 04, 2024 9:1 3am RIGHT ELBOW September 01, 2024 8:4 5am RIGHT ELBOW. RX HERE September 06, 2024 9: 00am RIGHT ELBOW October 20, 2024 8:45 am 3 M FU November 23, 2024 6:00 pm Reason for Visit Admit Date Bipolar depression August 01, 2024 10: 22am Hypertension August 01, 2024 10: 22am Medial epicondylitis, right elbow August 01, 2024 10:22am Medial epicondylitis, right elbow August 04, 2024 9:13am Medial epicondylitis, right elbow September 01, 2024 8:45am Medial epicondylitis, right elbow October 092024 8:45am Health Concerns Infection Onset Date Last Indicated Resolved Time COVID-19 Rule-Out 09/04/2022 09/04/2022 Infection Onset Date Last Indicated Resolved Time COVID-19 Rule-Out 09/04/2022 09/04/2022 09/05/2022 5:43 AM EDT Reason for Referral Specialty Diagnoses / Procedures Referred By Blanca t Referred To Contact Ent - Otolaryngology Diagnoses Acute recurrent pansinusitis Procedures CONSULT TO ENT OFFICE/OUTPATIENT [facility] 60 MINUTES Kimmie Smith, [address] [place] [address] Referral ID Status Reason Start Date Expiration Date Visits Requested Visits Authorized [id number] Authorized PCP Requested Referral 08/14/2023 08/13/2024 1 1 Additional Source Comments (unrecognized sect ion and content) No Status Records FoundNo Status Records FoundNo Status Records Found INFORMATION SOURCE (unrecogn ized section and content) DATE CREATED AUTHOR 10/30/2017 [facility] ([place]) DATE CREATED AUTHOR AUTHOR'S ORGANIZ ATION 11/27/2024 [facility] DATE CREATED AUTHOR AUTHOR'S ORGANIZ ATION 11/28/2024 [facility] Source Comments (unrecognize d section and content) In the event this informatio n is protected by the Federal Confidentiality of Alcohol and Drug Abuse Patient Records regulations: The Federal rules restrict any use of the information to criminally investigate or prosecute any alcohol or drug abuse patient.[facility] the event this information is protected by the Federal Confidentiality of Alcohol and Drug Abuse Patient Records regulations: The Federal rules restrict any use of the information to criminally investigate or prosecute any alcohol or drug abuse patient.[facility] HamiltonIn the event this information is protected by the Federal Confidentiality of Alcohol and Drug Abuse Patient Records regulations: The Federal rules restrict any use of the information to criminally investigate or prosecute any alcohol or drug abuse patient.[facility] HamiltonIn the event this information is protected by the Federal Confidentiality of Alcohol and Drug Abuse Patient Records regulations: The Federal rules restrict any use of the information to criminally investigate or prosecute any alcohol or drug abuse patient.[facility] HamiltonIn the event this information is protected by the Federal Confidentiality of Alcohol and Drug Abuse Patient Records regulations: The Federal rules restrict any use of the information to criminally investigate or prosecute any alcohol or drug abuse patient.[facility] HamiltonIn the event this information is protected by the Federal Confidentiality of Alcohol and Drug Abuse Patient Records regulations: The Federal rules restrict any use of the information to criminally investigate or prosecute any alcohol or drug abuse patient.[facility] HamiltonIn the event this information is protected by the Federal Confidentiality of Alcohol and Drug Abuse Patient Records regulations: The Federal rules restrict any use of the information to criminally investigate or prosecute any alcohol or drug abuse patient.[facility] HamiltonIn the event this information is protected by the Federal Confidentiality of Alcohol and Drug Abuse Patient Records regulations: The Federal rules restrict any use of the information to criminally investigate or prosecute any alcohol or drug abuse patient.[facility] HamiltonIn the event this information is protected by the Federal Confidentiality of Alcohol and Drug Abuse Patient Records regulations: The Federal rules restrict any use of the information to criminally investigate or prosecute any alcohol or drug abuse patient.[facility] HamiltonIn the event this information is protected by the Federal Confidentiality of Alcohol and Drug Abuse Patient Records regulations: The Federal rules restrict any use of the information to criminally investigate or prosecute any alcohol or drug abuse patient.[facility] HamiltonIn the event this information is protected by the Federal Confidentiality of Alcohol and Drug Abuse Patient Records regulations: The Federal rules restrict any use of the information to criminally investigate or prosecute any alcohol or drug abuse patient.[facility] HamiltonIn the event this information is protected by the Federal Confidentiality of Alcohol and Drug Abuse Patient Records regulations: The Federal rules restrict any use of the information to criminally investigate or prosecute any alcohol or drug abuse patient.[facility] HamiltonIn the event this information is protected by the Federal Confidentiality of Alcohol and Drug Abuse Patient Records regulations: The Federal rules restrict any use of the information to criminally investigate or prosecute any alcohol or drug abuse patient.[facility] HamiltonIn the event this information is protected by the Federal Confidentiality of Alcohol and Drug Abuse Patient Records regulations: The Federal rules restrict any use of the information to criminally investigate or prosecute any alcohol or drug abuse patient.[facility] HamiltonIn the event this information is protected by the Federal Confidentiality of Alcohol and Drug Abuse Patient Records regulations: The Federal rules restrict any use of the information to criminally investigate or prosecute any alcohol or drug abuse patient.[facility] HamiltonIn the event this information is protected by the Federal Confidentiality of Alcohol and Drug Abuse Patient Records regulations: The Federal rules restrict any use of the information to criminally investigate or prosecute any alcohol or drug abuse patient.[facility] HamiltonIn the event this information is protected by the Federal Confidentiality of Alcohol and Drug Abuse Patient Records regulations: The Federal rules restrict any use of the information to criminally investigate or prosecute any alcohol or drug abuse patient.[facility] HamiltonIn the event this information is protected by the Federal Confidentiality of Alcohol and Drug Abuse Patient Records regulations: The Federal rules restrict any use of the information to criminally investigate or prosecute any alcohol or drug abuse patient.[facility] HamiltonIn the event this information is protected by the Federal Confidentiality of Alcohol and Drug Abuse Patient Records regulations: The Federal rules restrict any use of the information to criminally investigate or prosecute any alcohol or drug abuse patient.[facility] HamiltonIn the event this information is protected by the Federal Confidentiality of Alcohol and Drug Abuse Patient Records regulations: The Federal rules restrict any use of the information to criminally investigate or prosecute any alcohol or drug abuse patient.[facility] HamiltonIn the event this information is protected by the Federal Confidentiality of Alcohol and Drug Abuse Patient Records regulations: The Federal rules restrict any use of the information to criminally investigate or prosecute any alcohol or drug abuse patient.[facility] HamiltonIn the event this information is protected by the Federal Confidentiality of Alcohol and Drug Abuse Patient Records regulations: The Federal rules restrict any use of the information to criminally investigate or prosecute any alcohol or drug abuse patient.[facility] HamiltonIn the event this information is protected by the Federal Confidentiality of Alcohol and Drug Abuse Patient Records regulations: The Federal rules restrict any use of the information to criminally investigate or prosecute any alcohol or drug abuse patient.[facility] HamiltonIn the event this information is protected by the Federal Confidentiality of Alcohol and Drug Abuse Patient Records regulations: The Federal rules restrict any use of the information to criminally investigate or prosecute any alcohol or drug abuse patient.[facility] Reason for Visit (unrecogniz ed section and content) Reason Comments Sinus Problem sinus pressure, drai eric, right ear pain x today Reason Comments Results Reason Comments Arm Pain R arm pain and swell ing x this AM Reason Comments Pain (RT) elbow pain rate d 5 onset 09/04/2021 currently PT Follow Up Pt presented with fo rm signature required Reason Comments right arm- tendonitis wanting release to go back to work Reason Comments Follow Up Pt presented with pa perwork (RT) arm,pain rated 3 completed PT AM Reason Comments Headache Pt reported BP medic ation, follow up with PCP scheduled ,waite pain rated 2, dizziness onset AM. Reason Comments Dental Problem Tooth pain x 2 days Reason Comments Ear Pain Left ear pain and dr inman x 2 days Reason Comments Fatigue Fatigue, dizzy and l ightheaded-started a few hours ago Reason Comments Fatigue Fatigue-was here las t night also and just wants checked again Reason Comments Hand Pain R hand pain and swel ling, chronic from previous injury and surgeries Reason Comments Cough Fever, congestion, S T, chest congestion x1 day Reason Comments sinus pain and pressure X 1 day Reason Comments Nasal Congestion Cough, sinus issues x 2 weeks Reason Comments Sore Throat Sinus, congestion x 2 weeks Reason Comments Headache Sinus congestion x2 days Specialty Diagnoses / Procedures Referred By Blanca bailon Referred To Contact Internal Medicine / [facility] Diagnoses headache, sinus, congestion Procedures EST SAME DAY [facility] [address] [place] [address] Referral ID Status Reason Start Date Expiration Date Visits Requested Visits Authorized [id number] Pending Review Financial Clearance Required - Self Pay 3 06/23/2023 1 1 Reason Comments Cough Loss of taste and sm ell, congestion, diarrhea, vomiting x 5 days Reason Comments Nasal Congestion All the time Reason Comments Sinus Problem Congestion x1 week Reason Comments Radiology XR Reason Comments Pain (Elbow Pain) R elbow pain x this AM, has history with recent surgery, has been back to work for 1 month Care Teams (unrecognized sec tion and content) Cleaning Porter Relationship Specialty Start Date End Date Sherif Woodruff MD [address] [place] [address] PCP - General Family Practice 12/25/20 Cleaning Porter Relationship Specialty Start Date End Date Sherif Woodruff MD [address] [place] [address] PCP - General Family Practice 12/25/20 Cleaning Porter Relationship Specialty Start Date End Date Sherif Woodruff MD [address] [facility], [place] [id number] PCP - General Family Practice 12/25/20 Cleaning Porter Relationship Specialty Start Date End Date Sherif Woodruff MD [address] [facility] [place] [id number] PCP - General Family Practice 12/25/20 Team Status: Active Member Role Status Dates Dr. Vimal Nesbitt MD Family Provider Active Dr. Francy Boss MD Primary Care Provider Active Team Status: Inactive Member Role Status Dates Dr. Francy Boss MD Primary Care P sinai, Attending Provider, Referring Provider Active Team Status: Inactive Member Role Status Dates Dr. Francy Boss MD Primary Care Provider, Refer ring Provider Active Candido Alford PA, PA Attending Provider Active Team Status: Inactive Member Role Status Dates Dr. Francy Boss MD Primary Care Provider Active Dr. Estevan Gregory MD Emergency Provider Active Team Status: Inactive Member Role Status Dates Dr. Francy Boss MD Primary Care Provider Active Dr. Foreign Benitez MD Emergency Provider Active Cleaning Porter Relationship Specialty Start Date End Date Francy Boss MD [address] [place] [address] PCP - General Internal Medicine 03/25/23 Cleaning Porter Relationship Specialty Start Date End Date Francy Boss MD [address] [place] [address] PCP - General Internal Medicine 03/25/23 Cleaning Porter Relationship Specialty Start Date End Date Francy Boss MD [address] [place] [address] PCP - General Internal Medicine 03/25/23 Team Status: Inactive Member Role Status Dates Dr. Francy Boss MD Primary Care Provider Active Dr. Robert Patel MD Emergency Provider Active Team Status: Active Member Role Status Dates Dr. Francy Boss MD Primary Care Provider Active Team Status: Inactive Member Role Status Dates Dr. Francy Boss MD Primary Care Provider Active Start: April 05, 2024 End: April 05, 2024 Ricardo Moran MD Attending Provider Active St art: April 05, 2024 End: April 05, 2024 Team Status: Inactive Member Role Status Dates Dr. Francy Boss MD Primary Care Provider Active Start: April 06, 2024 End: April 06, 2024 Dr. Francy Boss MD Referring Provider Active Start: April 06, 2024 End: April 06, 2024 Ricardo Moran MD Attending Provider Active St art: April 06, 2024 End: April 06, 2024 Team Status: Inactive Member Role Status Dates Dr. Francy Boss MD Primary Care Provider Active Start: May 02, 2024 End: May 02, 2024 Dr. Francy Boss MD Attending Provider Active Start: May 02, 2024 End: May 02, 2024 Dr. Francy Boss MD Referring Provider Active Start: May 02, 2024 End: May 02, 2024 Team Status: Inactive Member Role Status Dates Dr. Francy Boss MD Primary Care Provider Active Start: May 24, 2024 End: May 24, 2024 Ricardo Moran MD Attending Provider Active St art: May 24, 2024 End: May 24, 2024 Riacrdo Moran MD Referring Provider Active St art: May 24, 2024 End: May 24, 2024 Team Status: Inactive Member Role Status Dates Dr. Francy Boss MD Primary Care Provider Active Start: June 02, 2024 End: June 02, 2024 Dr. Francy Boss MD Referring Provider Active Start: June 02, 2024 End: June 02, 2024 Ricardo Moran MD Attending Provider Active St art: June 02, 2024 End: June 02, 2024 Team Status: Inactive Member Role Status Dates Dr. Francy Boss MD Primary Care Provider Active Start: July 22, 2024 End: July 22, 2024 Dr. Francy Boss MD Referring Provider Active Start: July 22, 2024 End: July 22, 2024 Ricardo Moran MD Attending Provider Active St art: July 22, 2024 End: July 22, 2024 Team Status: Active Member Role Status Dates Dr. Francy Boss MD Primary Care Provider Active Start: July 22, 2024 Dr. Francy Boss MD Referring Provider Active Start: July 22, 2024 Ricardo Moran MD Attending Provider Active St art: July 22, 2024 Ricardo Moran MD Other Provider Active Start: July 22, 2024 Team Status: Inactive Member Role Status Dates Dr. Francy Boss MD Primary Care Provider Active Start: July 25, 2024 End: July 25, 2024 Dr. Francy Boss MD Referring Provider Active Start: July 25, 2024 End: July 25, 2024 Ricardo Moran MD Attending Provider Active St art: July 25, 2024 End: July 25, 2024 Team Status: Inactive Member Role Status Dates Dr. rFancy Boss MD Primary Care Provider Active Start: August 01, 2024 End: August 01, 2024 Dr. Francy Boss MD Attending Provider Active Start: August 01, 2024 End: August 01, 2024 Dr. Francy Boss MD Referring Provider Active Start: August 01, 2024 End: August 01, 2024 Team Status: Inactive Member Role Status Dates Dr. Francy Boss MD Primary Care Provider Active Start: August 04, 2024 End: August 04, 2024 Dr. Francy Boss MD Referring Provider Active Start: August 04, 2024 End: August 04, 2024 Ricardo Moran MD Attending Provider Active St art: August 04, 2024 End: August 04, 2024 Team Status: Inactive Member Role Status Dates Dr. Francy Boss MD Primary Care Provider Active Start: September 01, 2024 End: September 01, 2024 Dr. Francy Boss MD Referring Provider Active Start: September 01, 2024 End: September 01, 2024 Ricardo Moran MD Attending Provider Active St art: September 01, 2024 End: September 01, 2024 Team Status: Active Member Role Status Dates Dr. Francy Boss MD Primary Care Provider Active Start: September 06, 2024 Ricardo Moran MD Attending Provider Active St art: September 06, 2024 Ricardo Moran MD Referring Provider Active St art: September 06, 2024 Team Status: Inactive Member Role Status Dates Dr. Francy Boss MD Primary Care Provider Active Start: October 20, 2024 End: October 20, 2024 Dr. Francy Boss MD Referring Provider Active Start: October 20, 2024 End: October 20, 2024 Ricardo Moran MD Attending Provider Active St art: October 20, 2024 End: October 20, 2024 Team Status: Active Member Role/Relationship Status Dates Dr. Francy Boss MD Primary Care Provider Active Team Status: Inactive Member Role/Relationship Status Dates Dr. Francy Boss MD Primary Care Provider Active Start: August 01, 2024 End: August 01, 2024 Dr. Francy Boss MD Attending Provider Active Start: August 01, 2024 End: August 01, 2024 Dr. Francy Boss MD Referring Provider Active Start: August 01, 2024 End: August 01, 2024 Team Status: Inactive Member Role/Relationship Status Dates Dr. Francy Boss MD Primary Care Provider Active Start: August 04, 2024 End: August 04, 2024 Dr. Francy Boss MD Referring Provider Active Start: August 04, 2024 End: August 04, 2024 Ricardo Moran MD Attending Provider Active St art: August 04, 2024 End: August 04, 2024 Team Status: Inactive Member Role/Relationship Status Dates Dr. Francy Boss MD Primary Care Provider Active Start: September 01, 2024 End: September 01, 2024 Dr. Francy Boss MD Referring Provider Active Start: September 01, 2024 End: September 01, 2024 Ricardo Moran MD Attending Provider Active St art: September 01, 2024 End: September 01, 2024 Team Status: Active Member Role/Relationship Status Dates Dr. Francy Boss MD Primary Care Provider Active Start: September 06, 2024 Ricardo Moran MD Attending Provider Active St art: September 06, 2024 Ricardo Moran MD Referring Provider Active St art: September 06, 2024 Team Status: Inactive Member Role/Relationship Status Dates Dr. Francy Boss MD Primary Care Provider Active Start: October 20, 2024 End: October 20, 2024 Dr. Francy Boss MD Referring Provider Active Start: October 20, 2024 End: October 20, 2024 Ricardo Moran MD Attending Provider Active St art: October 20, 2024 End: October 20, 2024 Team Status: Inactive Member Role/Relationship Status Dates Dr. Francy Boss MD Primary Care Provider Active Start: November 23, 2024 End: November 23, 2024 Dr. Francy Boss MD Attending Provider Active Start: November 23, 2024 End: November 23, 2024 Dr. 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 Relationship Specialty Start Date End Date Francy Boss MD [address] [facility] [place] [address] PCP - General Internal Medicine 03/25/23 Goals (unrecognized section and content) Goals may be documented in a n alternate sectionGoals may be documented in an alternate sectionGoals may be documented in an alternate sectionGoals may be documented in an alternate sectionGoals may be documented in an alternate sectionGoals may be documented in an alternate sectionGoals may be documented in an alternate sectionGoals may be documented in an alternate sectionGoals may be documented in an alternate sectionGoals may be documented in an alternate section FOR RECORDS PERTAINING TO PATIENTS WHO ARE OR HAVE BEEN ENROLLED IN A CHEMICAL DEPENDENCY/SUBSTANCEABUSE PROGRAM, SOME INFORMATION MAY BE OMITTED. This clinical summary was aggregated from multiple sources. Caution should be exercised in using it in the provision of clinical care. This summary normalizes information from multiple sources, and as a consequence, information in this document may materially change the coding, format and clinical context of patient data. In addition, data may be omitted in some cases. CLINICAL DECISIONS SHOULD BE BASED ON THE PRIMARY CLINICAL RECORDS. [employer] [facility]. provides no warranty or guarantee of the accuracy or completeness of information in this document.
[2024-11-29] MEDS: HYDROcodone Bitartrate/Apap 5/325 Tablet PO (02:14)
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
== END 2024-11-29 03:16 | disposition home or self-care (01) ==
PROVIDERS: Emergency Provider Emergency Medicine; PCP Internal Medicine; Visit Provider Emergency Medicine
DX: R22.31 Localized swelling, mass and lump, right upper limb (principal); F31.9 Bipolar disorder, unspecified; M79.601 Pain in right arm; I10 Essential (primary) hypertension; M77.01 Medial epicondylitis, right elbow; J45.909 Unspecified asthma, uncomplicated; Z79.899 Other long term (current) drug therapy; Z87.891 Personal history of nicotine dependence
CPT/HCPCS: 93971; 99283

== ENCOUNTER → 2024-11-29 | Outpatient (CLI) | payer MEDICAID, SELFPAY ==
--- NOTE | 2024-11-29 12:57 | VDUE_ITS ---
Reason For Study Reason For Study: RUE Pain Right Proximal Right jugular vein is spontaneous, widely patent, phasic, with no intraluminal echogenicity noted. Right subclavian vein is spontaneous, widely patent, phasic, with no intraluminal echogenicity noted. Right Lower Arm Right radial vein is compressible. Right ulnar vein is compressible. Right Arm Right axillary vein is spontaneous, patent, phasic, competent, compressible and demonstrates augmentation. Right brachial vein is compressible. Right cephalic vein is compressible. Right basilic vein is compressible. Procedure This was a unilateral right upper extremity venous doppler examination. VL/Venous Duplex US, Unilateral Interpretation Summary Deep veins of the right upper extremity are patent and compressible segmentally . There is no evidence of deep vein thrombosis. Superficial veins of the right upper extremity are patent and compressible segm entally. There is no evidence of superficial vein thrombosis. Ordering Physician: Vinay Diehl Referring Physician: Francy Boss Performed By: Indio Ponce RVT ???
== END | disposition home or self-care (01) ==
LOC: CVS 12:57
PROVIDERS: PCP Internal Medicine; Referring Provider Emergency Medicine; Visit Provider Emergency Medicine
DX: M79.601 Pain in right arm (principal)
CPT/HCPCS: 93971

== ENCOUNTER 2025-02-20 08:53 | Emergency (ER) | payer MEDICAID, SELFPAY ==
[2025-02-20 08:54] VITALS: BP 144/100; PULSE 99; RESP 16; TEMP 36.7; O2SAT 99; BMI 30.7
[2025-02-20] MEDS: Ketorolac 30 MG/ML Syringe IM (10:06)
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
[2025-02-20 10:29] VITALS: BP 147/105; PULSE 89; RESP 18; TEMP 36.6; O2SAT 98
== END 2025-02-20 10:34 | disposition home or self-care (01) ==
LOC: ED 10:23
PROVIDERS: Emergency Provider Surgery; PCP Internal Medicine; Visit Provider Surgery
DX: M79.631 Pain in right forearm (principal); Z87.891 Personal history of nicotine dependence; I10 Essential (primary) hypertension
CPT/HCPCS: 96372; 99282